=== PATIENT | female | born 1955 | race Caucasian/White ===

== ENCOUNTER 2017-01-18 03:39 | Inpatient (IN) | payer BC ==
[2017-01-18] VITALS (28 sets, daily range): BP systolic 60–136; BP diastolic 39–72; PULSE 86–126; RESP 12–24; TEMP 97.9–100; O2SAT 90–100
[~2017-01-18] VITALS: Ht 165.1 cm; Wt 73.8 kg
[2017-01-18] MEDS ORDERED: SODIUM CHLOR 0.9% 1000 ML INJ 1,000 ML IV SCH ×2 (03:43→05:19)
[2017-01-18] MEDS ORDERED: SODIUM CHLORIDE 0.9% FLUSH 5 ML FLUSH IV FLUSH PRN (03:45)
[2017-01-18] MEDS ORDERED: METF1000 PO (04:02)
[2017-01-18] MEDS ORDERED: DOPamine INJ PREMIX 500 ML ONE (04:02)
[2017-01-18] MEDS ORDERED: ALPR0.5T3 PO ×2 (04:02→04:16)
[2017-01-18] MEDS ORDERED: ONDANSETRON HCL 4 MG/2 ML VIAL ONE (04:03)
[2017-01-18] MEDS ORDERED: ESCI10TA PO ×2 (04:07→04:16)
[2017-01-18] MEDS ORDERED: VALS1TAB63 PO (04:08)
[2017-01-18] MEDS ORDERED: LORA1TAB12 PO ×2 (04:08→04:16)
[2017-01-18] MEDS ORDERED: ESZO1TAB4 PO ×2 (04:09→04:16)
[2017-01-18] MEDS ORDERED: ATEN50TA PO (04:16)
[2017-01-18] MEDS ORDERED: IBUP200T2 PO (04:16)
[2017-01-18] MEDS ORDERED: METF850T PO (04:16)
[2017-01-18] MEDS ORDERED: VALS320T4 PO (04:16)
[2017-01-18] MEDS ORDERED: MIDAZOLAM HCL 5 MG/ML VIAL (1 ML) ONE (04:18)
[2017-01-18 04:21] LABS: AUTOMATED NEUTROPHIL # 10.3 TH/MM3 (1.8-7.7); EOSINOPHIL % 0.2 % (0.0-4.0); HEMATOCRIT 34.3 % (35.0-46.0); LYMPH % 4.6 % (9.0-44.0); LYMPHOCYTE # 0.6 TH/MM3 (1.0-4.8); MEAN CELL VOLUME 101.1 FL (80.0-100.0); MEAN CORPUSCULAR HEMOGLOBIN 33.3 PG (27.0-34.0); MEAN CORPUSCULAR HGB CONC 32.9 % (32.0-36.0); MONO % 10.5 % (0.0-8.0); NEUT % 84.7 % (16.0-70.0); PLATELET COUNT 196 TH/MM3 (150-450); RED BLOOD COUNT 3.39 MIL/MM3 (4.00-5.30); RED CELL DISTRIBUTION WIDTH 14.2 % (11.6-17.2); WHITE BLOOD COUNT 12.1 TH/MM3 (4.0-11.0)
[2017-01-18] MEDS ORDERED: PROPOFOL 1000 MG/100 ML INJ 100 ML ONE (04:22)
[2017-01-18 04:25] LABS: HEMO FLAGS AUTO DIFF
[2017-01-18 04:32] LABS: PROTHROMBIN TIME - PATIENT 11.2 SEC (9.8-11.6)
[2017-01-18] MEDS ORDERED: NOREPINEPHRINE 4 MG/4 ML AMP ONE (04:39)
[2017-01-18 04:42] LABS: BLOOD GAS BASE EXCESS -16.7 mmol/L (-2-2); BLOOD GAS CARBOXYHEMOGLOBIN 0.8 % (0-4); BLOOD GAS HCO3 11 mmol/L (22-26); BLOOD GAS METHEMOGLOBIN 0.8 % (0-2); BLOOD GAS O2 HGB SATURATION 98 % (90-100); BLOOD GAS OXYGEN CONTENT 17.3 Vol % (12.0-20.0); BLOOD GAS PCO2 40 mmHg (38-42); BLOOD GAS PO2 344 mmHG (61-120); TEMP CORR TO 98.6
[2017-01-18 04:43] LABS: CRITICAL VALUE YES; DRAW SITE LT RADIAL; FIO2 100 %; NUMBER OF ARTERIAL PUNCTURES 2; OXYGEN DEVICE VENTILATOR; STAT YES; ULNAR PULSE PRESENT; VENT SETTINGS AC/18/550/PEEP6
[2017-01-18 04:45] LABS: ACETAMINOPHEN LESS THAN 2.0 MCG/ML (10.0-30.0); ALCOHOL LESS THAN 3 MG/DL (0-5); ALKALINE PHOSPHATASE 90 U/L (45-117); ALT (GPT) 27 U/L (10-53); ANION GAP 23 MEQ/L (5-15); AST (GOT) 27 U/L (15-37); BICARBONATE 16.3 MEQ/L (21.0-32.0); BLOOD UREA NITROGEN 92 MG/DL (7-18); CALCIUM-PROTEIN CORRECTED 7.5 MG/DL (8.5-10.1); CHLORIDE 86 MEQ/L (98-107); CREATINE KINASE 441 U/L (26-192); GLOMERULAR FILTRATION RATE 4 ML/MIN (>89); POTASSIUM 4.2 MEQ/L (3.5-5.1); SODIUM (NA) 125 MEQ/L (136-145); TOTAL BILIRUBIN ADULT 0.5 MG/DL (0.2-1.0)
[2017-01-18] MEDS ORDERED: TERBUTALINE INJ 1 MG/ML AMP SQ PRN ×2 (04:45)
[2017-01-18] MEDS ORDERED: VANCOMYCIN INJ 1,000 MG in SODIUM CHLOR 0.9% 250 ML INJ 250 ML IV ONE (04:45)
[2017-01-18] MEDS ORDERED: ETOMIDATE 20 MG/10 ML VIAL IV PUSH ONE (04:45)
[2017-01-18] MEDS ORDERED: SUCCINYLCHOLINE CHLORIDE 100 MG/5 ML SYRINGE IV PUSH ONE (04:45)
[2017-01-18] MEDS ORDERED: PIPERACIL-TAZO 4.5 GM PREMIX 100 ML IV ONE (04:45)
[2017-01-18] MEDS ORDERED: SODIUM BICARBONATE 8.4% INJ 154 MEQ in SODIUM CHLOR 0.9% 1000 ML INJ 846 ML IV SCH (04:54)
--- NOTE | 2017-01-18 04:54 | RADRPT ---
EXAM DATE/TIME: 01/18/2017 04:23 [facility] COMPARISON: No previous studies available for comparison. INDICATIONS : Central line placement. MEDICAL HISTORY : Cardiomyopathy SURGICAL HISTORY : None. ENCOUNTER: Initial ACUITY: 1 day PAIN SCORE: Non-responsive. LOCATION: Bilateral chest FINDINGS: No infiltrate seen. No pleural effusion or pneumothorax. Heart size within normal limits. Endotracheal tube tip is slightly down the right mainstem bronchus. There is a right subclavian centr al venous catheter with tip in the right atrium. Nasogastric tube has its tip in the distal stomach. CONCLUSION: 1. Endotracheal tube extends slightly down the right mainstem bronchus and should be pulled back fela ral centimeters. 2. No infiltrate, effusion or pneumothorax. Loy Barrientos MD on January 18, 2017 at 4:52 Board Certified Radiologist. This report was verified electronically.
[2017-01-18 05:00] LABS: BANDS 17 % (0-6); CORRECTED NUCLEATED RBC 1 /100 WBC (0-0); METAMYELOCYTES 1 % (0-1); NEUTROPHIL # MANUAL DIFF 10.5 TH/MM3 (1.8-7.7); POLYS (SEG NEUTROPHILS) 69 % (16-70); WBC DIFF SAMPLE 100
[2017-01-18 05:01] LABS: OVALOCYTES 1+ (NORMAL); PLATELET ESTIMATE SMEAR NORMAL (NORMAL); PLATELET MORPHOLOGY NORMAL (NORMAL)
[2017-01-18 05:02] LABS: SCAN/DIFF FINAL DIFF MANUAL
[2017-01-18 05:03] LABS: CKMB 50.1 NG/ML (0.5-3.6); DOHLE BODIES PRESENT (NONE SEEN)
[2017-01-18] MEDS: NOREPINEPHRINE-DEXTROSE DRIP 250 ML IV PRN ×3 (05:06→22:49)
[2017-01-18] MEDS: DOPamine INJ PREMIX 500 ML IV PRN ×2 (05:07→18:30)
[2017-01-18] MEDS: PROPOFOL 1000 MG/100 ML INJ 100 ML IV PRN ×2 (05:07→22:49)
[2017-01-18] MEDS ORDERED: SODIUM CHLOR 0.9% 1000 ML INJ 100 ML IV ONE (05:19)
[2017-01-18] MEDS ORDERED: SODIUM CHLOR 0.9% 1000 ML INJ 1,000 ML IV ONE ×4 (05:19→21:45)
--- NOTE | 2017-01-18 05:20 | RADRPT ---
EXAM DATE/TIME: 01/18/2017 05:06 [facility] COMPARISON: No previous studies available for comparison. INDICATIONS : Altered mental status; possible overdose. RADIATION DOSE: 35.72 CTDIvol (mGy) MEDICAL HISTORY : None SURGICAL HISTORY : None. ENCOUNTER: Initial ACUITY: 1 day PAIN SCALE: 0/10 LOCATION: cranial TECHNIQUE: Multiple contiguous axial images were obtained of the head. Using automated exposure control and adj ustment of the mA and/or kV according to patient size, radiation dose was kept as low as reasonably a chievable to obtain optimal diagnostic quality images. DICOM format image data is available electro nically for review and comparison. FINDINGS: CEREBRUM: The ventricles are normal for age. No evidence of midline shift, mass lesion, hemorrhage or acute in farction. No extra-axial fluid collections are seen. POSTERIOR FOSSA: The cerebellum and brainstem are intact. The 4th ventricle is midline. The cerebellopontine angle i s unremarkable. EXTRACRANIAL: 19 mm soft tissue scalp mass noted right posterior parietal vertex, probably a sebaceous cyst but ple ase correlate clinically. SKULL: The calvaria is intact. No evidence of skull fracture. CONCLUSION: No acute intracranial abnormality. Loy Barrientos MD on January 18, 2017 at 5:18 Board Certified Radiologist. This report was verified electronically.
[2017-01-18] MEDS ORDERED: SODIUM CHLORIDE 0.9% FLUSH 10 ML FLUSH PRN (05:30)
[2017-01-18] MEDS ORDERED: LACTULOSE SYRUP 20 GM/30 ML CUP PO PRN (05:30)
[2017-01-18] MEDS ORDERED: SODIUM BICARBONATE 8.4% INJ 150 MEQ in DEXTROSE 5% IN WATE 1000ML INJ 1,000 ML IV SCH ×2 (05:30)
[2017-01-18] MEDS ORDERED: RESP: ALBUTEROL 2.5 MG/IPRATROPIUM 0.5 MG NEB (PRN) INH (05:30)
[2017-01-18] MEDS ORDERED: MISCELLANEOUS NURSING INFORMATION XX SCH (05:30)
[2017-01-18] MEDS ORDERED: MAGNESIUM HYDROXIDE SUSP 30 ML CUP PO PRN (05:30)
[2017-01-18] MEDS ORDERED: LORazepam 2 MG/ML VIAL IV PUSH PRN (05:30)
[2017-01-18] MEDS ORDERED: SENNOSIDES 8.6 MG TAB PO PRN (05:30)
[2017-01-18] MEDS ORDERED: ONDANSETRON HCL 4 MG/2 ML VIAL IV PUSH PRN ×2 (05:30→07:45)
[2017-01-18] MEDS ORDERED: CHLORHEXIDINE GLUCONATE 2 % 1 PACK (2 CLOTHS) TOP PRN (05:30)
[2017-01-18] MEDS ORDERED: BISACODYL 10 MG SUPP RECTAL PRN (05:30)
[2017-01-18] MEDS ORDERED: ACETAMINOPHEN 325 MG TAB PO PRN ×2 (05:30→06:15)
--- NOTE | 2017-01-18 05:38 | HHI.HP ---
HPI Service Critical Care Medicine Primary Care Physician Admission Diagnosis Diagnosis: Travel History International Travel<30 Days: No Contact w/Intl Traveler <30 Da: No Traveled to Known Affected Are: No History of Present Illness 61-year-old female was brought in by EMT for altered mental status. She has a history of diabetes hypertension Xanax overdose in the past, she usually goes to [facility]. She had a Cardiac catheterization done there last year and she was told that she is got cardiomyopathy and she needs the bypass surgery however she didn't follow. Today when she was brought she was too lethargic and was intubated by ED attending for an airway protection. On presentation she is in cardiogenic shock, hypotensive on maximum dose of dopamine and Levophed. She is evaluated by sales project engineer Dr. Day was given a taken emergently to cardiac catheterization. She was also discussed by ED attending with Dr. Rousseau, nephrology who is aware of patient's elevated creatinine and emergent hemodialysis shortly after catheterization. Review of Systems ROS Unobtainable patient is sedated and intubated Past Family Social History Allergies: Coded Allergies: No Known Allergies (Unverified , 01/18/17) Past Medical History Diabetes Hypertension Coronary artery disease Anxiety History of benzodiazepines overdose Past Surgical History Cardiac catheterization Reported Medications Reported Meds & Active Scripts Active Reported Ibuprofen 200 Mg Tab 200 Mg PO Q4H PRN Escitalopram (Escitalopram Oxalate) 10 Mg Tab 10 Mg PO DAILY Atenolol 50 Mg Tab 50 Mg PO DAILY Valsartan-Hydrochlorothiazide 320-12.5 Mg Tab 1 Tab PO DAILY Metformin (Metformin HCl) 850 Mg Tab 1,000 Mg PO DAILY With meals Lorazepam 1 Mg Tab 1 Mg PO Q8H PRN Alprazolam 0.5 Mg Tab 0.5 Mg PO BID PRN Eszopiclone 3 Mg Tab 3 Mg PO HS PRN Eszopiclone 3 Mg Tab 3 Mg PO HS PRN Valsartan 40 Mg Tab 12.5 Mg PO DAILY Lorazepam 1 Mg Tab 1 Mg PO Q4H PRN Escitalopram (Escitalopram Oxalate) 10 Mg Tab 10 Mg PO DAILY Metformin (Metformin HCl) 1,000 Mg Tab 1,000 Mg PO DAILY With a meal Alprazolam 0.5 Mg Tab 0.5 Mg PO Q4H PRN Active Ordered Medications Current Medications Medications (Trade) Dose Ordered Sig/Rashi Route PRN Reason Start Time Stop Time Status Last Admin Dose Admin Dopamine HCl/ Dextrose 500 ml @ 9 mls/hr TITRATE PRN IV Blood Pressure Management 01/18/17 04:45 01/18/17 05:07 Norepinephrine Bitartrate 250 ml @ 7.5 mls/hr TITRATE PRN IV Blood pressure management 01/18/17 04:45 01/18/17 05:06 Terbutaline Sulfate (Brethine Inj) 1 mg UNSCH PRN SQ For Extravasation 01/18/17 04:45 Vancomycin HCl 1000 mg/Sodium Chloride 250 ml @ 250 mls/hr ONCE ONCE IV 01/18/17 04:45 01/18/17 05:44 01/18/17 05:08 Propofol 100 ml @ 2.4 mls/hr TITRATE PRN IV Ordered RASS 01/18/17 04:45 01/18/17 05:07 Sodium Bicarbonate 154 meq/Sodium Chloride 1,000 ml @ 0 mls/hr Q0M IV 01/18/17 04:54 Escitalopram Oxalate (Lexapro) 10 mg DAILY PO 01/18/17 09:00 Sodium Chloride (NS Flush) 2 ml UNSCH PRN .XX FLUSH AFTER USING IV ACCESS 01/18/17 05:30 Sodium Chloride (NS Flush) 2 ml BID .XX 01/18/17 09:00 Acetaminophen (Tylenol) 650 mg Q6H PRN PO PAIN 1-10 AND/OR FEVER >101F 01/18/17 05:30 UNV Famotidine (Pepcid Inj) 20 mg Q12HR IV PUSH 01/18/17 09:00 UNV Lorazepam (Ativan Inj) 1 mg Q1H PRN IV PUSH Agitation/Sedation 01/18/17 05:30 UNV Ondansetron HCl (Zofran Inj) 4 mg Q6H PRN IV PUSH NAUSEA OR VOMITING 01/18/17 05:30 UNV Albuterol/ Ipratropium (Duoneb Neb) 1 ampule Q2HR NEB PRN INH WHEEZING 01/18/17 05:30 Miscellaneous Information 1 Q361D XX 01/18/17 05:30 Chlorhexidine Gluconate (Chlorhexidine 2% Cloth) 3 pack Taper DAILY@04 TOP 01/19/17 04:00 01/15/18 03:59 UNV Chlorhexidine Gluconate (Chlorhexidine 2% Cloth) 3 pack UNSCH PRN TOP HYGIENIC CARE 01/18/17 05:30 UNV Senna/Docusate Sodium (Mali-Colace) 1 tab BID PO 01/18/17 09:00 UNV Magnesium Hydroxide (Milk Of Magnesia Liq) 30 ml Q12H PRN PO MILD - MODERATE CONSTIPATION 01/18/17 05:30 UNV Sennosides (Senokot) 17.2 mg Q12H PRN PO MODERATE - SEVERE CONSTIPATION 01/18/17 05:30 UNV Bisacodyl (Dulcolax Supp) 10 mg DAILY PRN RECTAL SEVERE CONSITIPATION 01/18/17 05:30 UNV Lactulose (Lactulose Liq) 30 ml DAILY PRN PO SEVERE CONSITIPATION 01/18/17 05:30 UNV Midazolam HCl 100 ml @ 2 mls/hr TITRATE PRN IV SEDATION 01/18/17 05:30 UNV Fentanyl Citrate 250 ml @ 5 mls/hr TITRATE PRN IV SEDATION 01/18/17 05:30 UNV Sodium Chloride 1,000 ml @ 1,000 mls/hr Q1H ONCE IV 01/18/17 05:19 01/18/17 06:18 UNV Sodium Chloride 1,000 ml @ 1,000 mls/hr Q1H ONCE IV 01/18/17 05:19 01/18/17 06:18 UNV Sodium Chloride 100 ml @ 1,000 mls/hr Q6M ONCE IV 01/18/17 05:19 01/18/17 05:24 UNV Family History Unobtainable Social History Unobtainable Physical Exam Vital Signs Vital Signs Date Time Temp Pulse Resp B/P (MAP) Pulse Ox O2 Delivery O2 Flow Rate FiO2 01/18/17 05:07 115 87/57 01/18/17 05:06 105 80/57 01/18/17 04:54 105 24 112/51 (71) 100 Ventilator 100 01/18/17 04:36 115 18 91/50 (64) 100 Ventilator 100 01/18/17 04:28 100 01/18/17 04:26 105 86/39 (55) 01/18/17 04:24 108 22 99/50 (66) 97 Ventilator 100 01/18/17 03:59 91 22 60/40 (47) Nasal Cannula 2.00 01/18/17 03:52 90 Nasal Cannula 2.00 01/18/17 03:43 98.7 86 22 105/72 (83) 93 Physical Exam GENERAL: Sedated and intubated obese female. SKIN: Warm and dry. HEAD: Normocephalic. EYES: No scleral icterus. No injection or drainage. NECK: Supple, trachea midline. No JVD or lymphadenopathy. CARDIOVASCULAR: Regular rate and rhythm without murmurs, gallops, or rubs. RESPIRATORY: Breath sounds equal bilaterally. No accessory muscle use. GASTROINTESTINAL: Abdomen soft, non-tender, nondistended. MUSCULOSKELETAL: No cyanosis, or edema. BACK: Nontender without obvious deformity. NEURO EXAM: GCS: M5 Vt E2 Mental Status: The patient is sedated and intubated Cranial Nerves: Pupils are round, reactive to light.. Reflexes: Biceps, patellar, and Achilles are 2/4 bilaterally. No clonus. Laboratory Laboratory Tests Test 01/18/17 03:50 01/18/17 04:10 01/18/17 04:30 White Blood Count 12.1 Red Blood Count 3.39 Hemoglobin 11.3 Hematocrit 34.3 Mean Corpuscular Volume 101.1 Mean Corpuscular Hemoglobin 33.3 Mean Corpuscular Hemoglobin Concent 32.9 Red Cell Distribution Width 14.2 Platelet Count 196 Mean Platelet Volume 8.5 Neutrophils (%) (Auto) 84.7 Lymphocytes (%) (Auto) 4.6 Monocytes (%) (Auto) 10.5 Eosinophils (%) (Auto) 0.2 Basophils (%) (Auto) 0.0 Neutrophils # (Auto) 10.3 Lymphocytes # (Auto) 0.6 Monocytes # (Auto) 1.3 Eosinophils # (Auto) 0.0 Basophils # (Auto) 0.0 CBC Comment AUTO DIFF Differential Total Cells Counted 100 Neutrophils % (Manual) 69 Band Neutrophils % 17 Lymphocytes % 6 Monocytes % 7 Neutrophils # (Manual) 10.5 Metamyelocytes 1 Nucleated Red Blood Cells 1 Differential Comment FINAL DIFF MANUAL Dohle Bodies PRESENT Platelet Estimate NORMAL Platelet Morphology Comment NORMAL Ovalocytes 1+ Prothrombin Time 11.2 Prothromb Time International Ratio 1.0 Blood Urea Nitrogen 92 Creatinine 9.41 Random Glucose 146 Total Protein 6.8 Albumin 3.1 Calcium Level 7.3 Alkaline Phosphatase 90 Aspartate Amino Transf (AST/SGOT) 27 Alanine Aminotransferase (ALT/SGPT) 27 Total Bilirubin 0.5 Sodium Level 125 Potassium Level 4.2 Chloride Level 86 Carbon Dioxide Level 16.3 Anion Gap 23 Estimat Glomerular Filtration Rate 4 Protein Corrected Calcium 7.5 Ammonia LESS THAN 10 Total Creatine Kinase 441 Creatine Kinase MB 50.1 Creatine Kinase MB % 11.4 Troponin I 2.00 Thyroid Stimulating Hormone 3rd Gen 1.190 Salicylates Level LESS THAN 1.7 Acetaminophen Level LESS THAN 2.0 Ethyl Alcohol Level LESS THAN 3 Lactic Acid Level 3.9 Blood Gas Puncture Site LT RADIAL Blood Gas Patient Temperature 98.6 Blood Gas HCO3 11 Blood Gas Base Excess -16.7 Blood Gas Oxygen Saturation 98 Arterial Blood pH 7.08 Arterial Blood Partial Pressure CO2 40 Arterial Blood Partial Pressure O2 344 Arterial Blood Oxygen Content 17.3 Arterial Blood Carboxyhemoglobin 0.8 Arterial Blood Methemoglobin 0.8 Blood Gas Hemoglobin 12.0 Oxygen Delivery Device VENTILATOR Blood Gas Ventilator Setting AC/18/550/PEEP6 Blood Gas Inspired Oxygen 100 Date/Time Source Procedure Growth Status 01/18/17 04:10 Blood Peripheral Aerobic Blood Culture Pending Received 01/18/17 04:10 Blood Peripheral Anaerobic Blood Culture Pending Received Result Diagram: 01/18/17 0350 01/18/17 0350 Caprini VTE Risk Assessment Caprini VTE Risk Assessment: Mod/High Risk (score >= 2) Caprini Risk Assessment Model Point Value = 1 Point Value = 2 Point Value = 3 Point Value = 5 Age 41-60 Minor surgery BMI > 25 kg/m2 Swollen legs Varicose veins or History of unexplained or recurrent spontaneous Oral contraceptives or hormone replacement Sepsis (< 1 month) Serious lung disease, including pneumonia (< 1 month) Abnormal pulmonary function Acute myocardial infarction Congestive heart failure (< 1 month) History of inflammatory bowel disease Medical patient at bed rest Age 61-74 Arthroscopic surgery Major open surgery (> 45 min) Laparoscopic surgery (> 45 min) Malignancy Confined to bed (> 72 hours) Immobilizing plaster cast Central venous access Age >= 75 History of VTE Family history of VTE Factor V Leiden Prothrombin [id number] Lupus anticoagulant Anticardiolipin antibodies Elevated serum homocysteine Heparin-induced thrombocytopenia Other congenital or acquired thrombophilia Stroke (< 1 month) Elective arthroplasty Hip, pelvis, or leg fracture Acute spinal cord injury (< 1 month) Prophylaxis Regimen Total Risk Factor Score Risk Level Prophylaxis Regimen 0-1 Low Early ambulation 2 Moderate Order ONE of the following: *Sequential Compression Device (SCD) *Heparin 5000 units SQ BID 3-4 Higher Order ONE of the following medications: *Heparin 5000 units SQ TID *Enoxaparin/Lovenox 40 mg SQ daily (WT < 150 kg, CrCl > 30 mL/min) *Enoxaparin/Lovenox 30 mg SQ daily (WT < 150 kg, CrCl > 10-29 mL/min) *Enoxaparin/Lovenox 30 mg SQ BID (WT < 150 kg, CrCl > 30 mL/min) AND/OR *Sequential Compression Device (SCD) 5 or more Highest Order ONE of the following medications: *Heparin 5000 units SQ TID (Preferred with Epidurals) *Enoxaparin/Lovenox 40 mg SQ daily (WT < 150 kg, CrCl > 30 mL/min) *Enoxaparin/Lovenox 30 mg SQ daily (WT < 150 kg, CrCl > 10-29 mL/min) *Enoxaparin/Lovenox 30 mg SQ BID (WT < 150 kg, CrCl > 30 mL/min) AND *Sequential Compression Device (SCD) Assessment and Plan Assessment and Plan Respiratory failure - Intubated for an airway protection - No weaning until neurologically and hemodynamically stable - Vent bundle - ABG and CXR daily Cardiogenic shock - Stat cardiac catheterization per Dr. Day - Levophed and dopamine to keep MEP above 65 - Cardiac Catheterization stat Acute coronary syndrome - Per cardiology Dr. Day Severe metabolic acidosis - Acute kidney injury - History of metformin - Sodium bicarbonate drip - IV hydration Acute kidney failure - Dr. Rousseau aware of patient going for cardiac catheterization and will require urgent hemodialysis shortly after - Stat hemodialysis catheter placement - IV hydration - Strict I's and Diabetes mellitus - Hold metformin due to above - Insulin sliding scale DVT GI prophylaxis - Heparin drip - Pepcid Critical Care: The total critical care time was 35 minutes. Time to perform other separately billable procedures was not included in the critical care time. Teodoro Calix MD Jan 18, 2017 05:38
[2017-01-18] MEDS: MIDAZOLAM 100 MG/100 ML INJ 100 ML IV PRN ×2 (05:53→15:47)
[2017-01-18] MEDS: fentaNYL DRIP 250 ML IV PRN (05:54)
[2017-01-18] MEDS ORDERED: MIDAZOLAM HCL 2 MG/2 ML VIAL IV PUSH ONE (06:00)
--- NOTE | 2017-01-18 06:03 | PD.PROCEDR ---
Procedure Note Procedure Hemodialysis catheter placement A time-out was completed verifying correct patient, procedure, site, positioning , and special equipment if applicable. The patient was placed in a dependent position appropriate for central line placement based on the vein to be cannulated. The patients left neck was prepped and draped in sterile fashion. 1 % Lidocaine was used to anesthetize the surrounding skin area. A double lumen hemodialysis catheter was introduced into the the internal jugular vein using the Seldinger technique and under ultrasound guidance. The catheter was threaded smoothly over the guide wire and appropriate blood return was obtained. Each lumen of the catheter was evacuated of air and flushed with sterile saline. The catheter was then sutured in place to the skin and a sterile dressing applied. Perfusion to the extremity distal to the point of catheter insertion was checked and found to be adequate. Estimated Blood Loss: 1ml The patient tolerated the procedure well and there were no complications. Teodoro Calix MD Jan 18, 2017 06:03
[2017-01-18] MEDS ORDERED: HEPARIN-NS/PF INJ 1,000 ML ONE (06:04)
[2017-01-18] MEDS ORDERED: SODIUM CHLOR 0.9% 1000 ML INJ 1,000 ML IV PRN (06:05)
[2017-01-18] MEDS ORDERED: SODIUM CHLOR 0.9% 1000 ML INJ 1,000 ML OTHER PRN ×2 (06:05)
--- NOTE | 2017-01-18 06:09 | PD ---
HPI Chief Complaint: Altered Mental Status Time Seen by Provider: 03:43 Travel History International Travel<30 days: No Contact w/Intl Traveler<30days: No Traveled to known affect area: No History of Present Illness HPI 61-year-old female came to the emergency room brought by EMS for altered mental status and profound hypotension. The history was primarily given by paramedics since patient was in a significant altered mental status and unable to give any meaningful history. Per the paramedics the called 911 because he was having hard time arousing her. When they arrived she was confused and slurred speech. They noticed that her blood pressure was 40 systolic. They started her on a dopamine drip on route and brought her in. By the time patient arrived to GCS was 12 and systolic blood pressure of 110. Patient was very confused but eyes open and slurred speech. There was a big bag of medications that was brought along with her and as per the pot room supervisor some of her 's medications were in there as well. It was noticed that her Xanax bottle that was filled on January 07 was empty. [facility] Past Medical History Narrative Medical List of her past medical, surgical, social and family history was reviewed from the nursing note. Depression: Yes Cardiomyopathy: Yes Diabetes: Yes Patient Takes Glucophage: No Tetanus Vaccination: Unknown Influenza Vaccination: No ?: Not Social History Tobacco Use: Yes Substance Use: No ([facility] ) Allergies-Medications (Allergen,Severity, Reaction): Coded Allergies: No Known Allergies (Unverified , 01/18/17) Comments No known drug allergies. Reported Meds & Prescriptions Reported Meds & Active Scripts Active Reported Ibuprofen 200 Mg Tab 200 Mg PO Q4H PRN Escitalopram (Escitalopram Oxalate) 10 Mg Tab 10 Mg PO DAILY Atenolol 50 Mg Tab 50 Mg PO DAILY Valsartan-Hydrochlorothiazide 320-12.5 Mg Tab 1 Tab PO DAILY Metformin (Metformin HCl) 850 Mg Tab 1,000 Mg PO DAILY With meals Lorazepam 1 Mg Tab 1 Mg PO Q8H PRN Alprazolam 0.5 Mg Tab 0.5 Mg PO BID PRN Eszopiclone 3 Mg Tab 3 Mg PO HS PRN Eszopiclone 3 Mg Tab 3 Mg PO HS PRN Valsartan 40 Mg Tab 12.5 Mg PO DAILY Lorazepam 1 Mg Tab 1 Mg PO Q4H PRN Escitalopram (Escitalopram Oxalate) 10 Mg Tab 10 Mg PO DAILY Metformin (Metformin HCl) 1,000 Mg Tab 1,000 Mg PO DAILY With a meal Alprazolam 0.5 Mg Tab 0.5 Mg PO Q4H PRN Narrative Medication List of her home medications reviewed from the nursing note. Review of Systems Except as stated in HPI: all other systems reviewed are Neg Physical Exam Narrative GENERAL: Delirious, confused, obese, moderate distress SKIN: Focused skin assessment warm/dry. Pale HEAD: Atraumatic. Normocephalic. EYES: Pupils equal and round. No scleral icterus. No injection or drainage. ENT: No nasal bleeding or discharge. Dry lips and mucous membranes NECK: Trachea midline. No JVD. CARDIOVASCULAR: Regular rate and rhythm. No murmur appreciated. RESPIRATORY: No accessory muscle use. Clear to auscultation. Breath sounds equal bilaterally. GASTROINTESTINAL: Abdomen soft, non-tender, nondistended. Hepatic and splenic margins not palpable. MUSCULOSKELETAL: No obvious deformities. No clubbing. No cyanosis. No edema. NEUROLOGICAL: GCS of 12, confused. No obvious cranial nerve deficits. Motor grossly within normal limits. Slurred speech. PSYCHIATRIC: Anxious with poor insight and judgment. Data Data Last Documented VS Orders Orders Electrocardiogram (01/18/17 03:43) Ammonia (01/18/17 03:43) Complete Blood Count With Diff (01/18/17 03:43) Comprehensive Metabolic Panel (01/18/17 03:43) Creatine Kinase (Cpk) (01/18/17 03:43) Prothrombin Time / Inr (Pt) (01/18/17 03:43) Troponin I (01/18/17 03:43) Thyroid Stimulating Hormone (01/18/17 03:43) Lactic Acid Sepsis Protocol (01/18/17 03:43) Blood Culture (01/18/17 03:43) Chest, Single Ap (01/18/17 03:43) Ct Brain W/O Iv Contrast(Rout) (01/18/17 03:43) Blood Glucose (01/18/17 03:43) Ecg Monitoring (01/18/17 03:43) Iv Access Insert/Monitor (01/18/17 03:43) Oximetry (01/18/17 03:43) Sodium Chloride 0.9% Flush (Ns Flush) (01/18/17 03:45) Sodium Chlor 0.9% 1000 Ml Inj (Ns 1000 M (01/18/17 03:43) Alcohol (Ethanol) (01/18/17 03:43) Tylenol (Acetaminophen) (01/18/17 03:43) Salicylates (Aspirin) (01/18/17 03:43) Dopamine Inj Premix (Dopamine Inj Premix (01/18/17 04:02) Ondansetron Inj (Zofran Inj) (01/18/17 04:03) Midazolam Inj (Versed Inj) (01/18/17 04:18) Fentanyl Inj (Fentanyl Inj) (01/18/17 04:19) Propofol 1000 Mg/100 Ml Inj (Diprivan 10 (01/18/17 04:22) Norepinephrine Inj (Levophed Inj) (01/18/17 04:39) Arterial Blood Gas (Abg) (01/18/17 04:30) CKMB (01/18/17 03:50) CKMB% (01/18/17 03:50) Succinylcholine Inj (Quelicin Inj) (01/18/17 04:45) Etomidate Inj (Amidate Inj) (01/18/17 04:45) Dopamine Inj Premix (Dopamine Inj Premix (01/18/17 04:45) Terbutaline Inj (Brethine Inj) (01/18/17 04:45) Norepinephrine-Dextrose Drip (Levophed-D (01/18/17 04:45) Terbutaline Inj (Brethine Inj) (01/18/17 04:45) Piperacil-Tazo 4.5 Gm Premix (Zosyn 4.5 (01/18/17 04:45) Vancomycin Inj (Vancomycin Inj) (01/18/17 04:45) Propofol 1000 Mg/100 Ml Inj (Diprivan 10 (01/18/17 04:45) ^ Infusion (01/18/17 04:45) RASS (01/18/17 04:45) Neurological Rass Scale DESIRE.Q2H (01/18/17 04:45) Notify Radiology (01/18/17 04:54) ^ Saline Lock (01/18/17 04:54) Sodium Chlor 0.9% 1... W/Sodium Bicarbon (01/18/17 04:54) Escitalopram (Lexapro) (01/18/17 09:00) Admit To Inpatient (01/18/17 ) Code Status (01/18/17 05:19) Vital Signs (Adult) DESIRE.Q1H (01/18/17 05:19) Activity Bed Rest (01/18/17 05:19) Elevate Head Of Bed (01/18/17 05:19) Neuro Checks . ORDERED (01/18/17 05:19) Intake + Output Q1H (01/18/17 05:19) Bedside Glucose DESIRE.BGM (01/18/17 05:19) Diet Npo (01/18/17 Breakfast) Sodium Chlor 0.9% 1000 Ml Inj (Ns 1000 M (01/18/17 05:19) Sodium Chloride 0.9% Flush (Ns Flush) (01/18/17 05:30) Sodium Chloride 0.9% Flush (Ns Flush) (01/18/17 09:00) Acetaminophen (Tylenol) (01/18/17 05:30) Famotidine Inj (Pepcid Inj) (01/18/17 09:00) Lorazepam Inj (Ativan Inj) (01/18/17 05:30) Ondansetron Inj (Zofran Inj) (01/18/17 05:30) Albuterol-Ipratropium Neb (Duoneb Neb) (01/18/17 05:30) Complete Blood Count With Diff (01/19/17 04:00) Comprehensive Metabolic Panel (01/19/17 04:00) Troponin I (01/18/17 11:19) Prothrombin Time / Inr (Pt) (01/19/17 04:00) Magnesium (Mg) (01/19/17 04:00) Phosphorus (Po4) (01/19/17 04:00) Electrocardiogram (01/18/17 05:19) Pt Request For Service (01/18/17 05:19) Service Car Driver / Telemetry DESIRE.Q8H (01/18/17 05:19) Scd Bilateral/Knee High DESIRE.BID (01/18/17 05:19) Won Bilateral/Knee High DESIRE.QSHIFT (01/18/17 05:19) ^ Initiate Protocol (01/18/17 05:19) Instruction (01/18/17 05:19) [facility] Nursing Information (01/18/17 05:30) Chlorhexidine 2% Cloth (Chlorhexidine 2% (01/19/17 04:00) Chlorhexidine 2% Cloth (Chlorhexidine 2% (01/18/17 05:30) Mrsa Pcr Surveillance (01/18/17 05:19) Docusate Sodium-Senna (Mali-Colace) (01/18/17 09:00) Magnesium Hydroxide Liq (Milk Of Magnesi (01/18/17 05:30) Sennosides (Senokot) (01/18/17 05:30) Bisacodyl Supp (Dulcolax Supp) (01/18/17 05:30) Lactulose Liq (Lactulose Liq) (01/18/17 05:30) Midazolam 100 Mg/100 Ml Inj (Versed Inj) (01/18/17 05:30) Neurological Rass Scale Q30MX2,Q2HX4,Q4H (01/18/17 05:19) Neurological Rass Scale Q30MX2,Q2HX4,Q4H (01/18/17 05:19) Fentanyl Drip (Fentanyl Drip) (01/18/17 05:30) Vital Signs (Adult) CONTINUOUS (01/18/17 05:19) Neuro Checks . ORDERED (01/18/17 05:19) Service Car Driver / Telemetry DESIRE.Q8H (01/18/17 05:19) Intake + Output 06,14,22 (01/18/17 05:19) Ot Request For Service (01/18/17 05:19) Sodium Chlor 0.9% 1000 Ml Inj (Ns 1000 M (01/18/17 05:19) Sodium Chlor 0.9% 1000 Ml Inj (Ns 1000 M (01/18/17 05:19) Sodium Chlor 0.9% 1000 Ml Inj (Ns 1000 M (01/18/17 05:19) Inpatient Certification (01/18/17 ) Dextrose 5% In [place]ate... W/Sodium Bicarbon (01/18/17 05:30) Admit Order (Ed Use Only) (01/18/17 05:36) Labs Laboratory Tests Test 01/18/17 03:50 01/18/17 04:10 01/18/17 04:30 White Blood Count 12.1 TH/MM3 Red Blood Count 3.39 MIL/MM3 Hemoglobin 11.3 GM/DL Hematocrit 34.3 % Mean Corpuscular Volume 101.1 FL Mean Corpuscular Hemoglobin 33.3 PG Mean Corpuscular Hemoglobin Concent 32.9 % Red Cell Distribution Width 14.2 % Platelet Count 196 TH/MM3 Mean Platelet Volume 8.5 FL Neutrophils (%) (Auto) 84.7 % Lymphocytes (%) (Auto) 4.6 % Monocytes (%) (Auto) 10.5 % Eosinophils (%) (Auto) 0.2 % Basophils (%) (Auto) 0.0 % Neutrophils # (Auto) 10.3 TH/MM3 Lymphocytes # (Auto) 0.6 TH/MM3 Monocytes # (Auto) 1.3 TH/MM3 Eosinophils # (Auto) 0.0 TH/MM3 Basophils # (Auto) 0.0 TH/MM3 CBC Comment AUTO DIFF Differential Total Cells Counted 100 Neutrophils % (Manual) 69 % Band Neutrophils % 17 % Lymphocytes % 6 % Monocytes % 7 % Neutrophils # (Manual) 10.5 TH/MM3 Metamyelocytes 1 % Nucleated Red Blood Cells 1 /100 WBC Differential Comment FINAL DIFF MANUAL Dohle Bodies PRESENT Platelet Estimate NORMAL Platelet Morphology Comment NORMAL Ovalocytes 1+ Prothrombin Time 11.2 SEC Prothromb Time International Ratio 1.0 RATIO Blood Urea Nitrogen 92 MG/DL Creatinine 9.41 MG/DL Random Glucose 146 MG/DL Total Protein 6.8 GM/DL Albumin 3.1 GM/DL Calcium Level 7.3 MG/DL Alkaline Phosphatase 90 U/L Aspartate Amino Transf (AST/SGOT) 27 U/L Alanine Aminotransferase (ALT/SGPT) 27 U/L Total Bilirubin 0.5 MG/DL Sodium Level 125 MEQ/L Potassium Level 4.2 MEQ/L Chloride Level 86 MEQ/L Carbon Dioxide Level 16.3 MEQ/L Anion Gap 23 MEQ/L Estimat Glomerular Filtration Rate 4 ML/MIN Protein Corrected Calcium 7.5 MG/DL Ammonia LESS THAN 10 MCMOL/L Total Creatine Kinase 441 U/L Creatine Kinase MB 50.1 NG/ML Creatine Kinase MB % 11.4 % Troponin I 2.00 NG/ML Thyroid Stimulating Hormone 3rd Gen 1.190 uIU/ML Salicylates Level LESS THAN 1.7 MG/DL Acetaminophen Level LESS THAN 2.0 MCG/ML Ethyl Alcohol Level LESS THAN 3 MG/DL Lactic Acid Level 3.9 mmol/L Blood Gas Puncture Site LT RADIAL Blood Gas Patient Temperature 98.6 Blood Gas HCO3 11 mmol/L Blood Gas Base Excess -16.7 mmol/L Blood Gas Oxygen Saturation 98 % Arterial Blood pH 7.08 Arterial Blood Partial Pressure CO2 40 mmHg Arterial Blood Partial Pressure O2 344 mmHG Arterial Blood Oxygen Content 17.3 Vol % Arterial Blood Carboxyhemoglobin 0.8 % Arterial Blood Methemoglobin 0.8 % Blood Gas Hemoglobin 12.0 G/DL Oxygen Delivery Device VENTILATOR Blood Gas Ventilator Setting AC/18/550/PEEP6 Blood Gas Inspired Oxygen 100 % [facility] Medical Decision Making Medical Screen Exam Complete: Yes Emergency Medical Condition: Yes Medical Record Reviewed: Yes Interpretation(s) Twelve-lead EKG was reviewed by me. Normal sinus rhythm, left axis deviation, significant ST depression in the lateral leads and inferior leads and ST elevation in aVR. No old EKGs to compare with. Heart rate of 83 bpm. Differential Diagnosis Myocardial ischemia, cardiogenic shock, metabolic acidosis, metabolic encephalopathy, medication overdose Narrative Course 5:58 AM based on the 12-lead EKG I immediately contacted the clasp machine operator Dr. Ren and sent him the EKG electronically. Based on the EKG he called Dr. Day who is on STEMI team. I discussed the case with Dr. Day and he decided to come in to see the patient. Meanwhile, 10 minutes after patient was hooked up to the monitor upon arrival she started getting very combative. She was impossible to reason with. At this point I decided to intubate her since I wanted a CAT scan of her head and a central line to be placed given her hypotension. Intubation was done by me. Please refer to the procedure note. Patient tolerated the procedure well. After intubation the ET tube was suctioned and a significant quantity of bright red blood with the thick mucous plug came out. Central line was put in by me. Please refer to the procedure note. Patient tolerated the procedure well as well. Blood test results started to come back at this point and it was noticed that her chemistry was grossly abnormal along with elevated troponin and CK-MB percentage. Patient was in acute renal failure with metabolic acidosis. The metabolic acidosis was also evident by the ABG that was done postintubation. A chest x-ray was done to confirm the ET tube and a central line placement. The radiology read the ET tube to be entering main stem and the tube was pulled up by 3 cm at this point. Awaiting for the repeat chest x-ray to confirm the position. Patient also went to the CT scanner for head CT which was negative for any acute issues. I discussed the case with the bird keeper on-call Dr. Arteaga and urged him to order emergent dialysis since by this point Dr. Day was here and he decided to take the patient to the catheter lab. Given the dye load and the poor renal function patient would require the dialysis. Patient's was called in and I discussed with him her condition. He seems to be in fragile health himself. He was having hard time giving me the exact events of patient's recent past but did tell me that she has overdosed twice in the past on various medications. She also has history of EtOH intoxication. He said that patient has no history of renal failure. She had a cardiac catheter done at [facility] in [facility] last year and was told that she has cardiomyopathy and would require bypass surgery. Dr. Day discussed with the about patient' s past history as well. Meanwhile, I discussed the case with the jet mechanic Dr. Calix who came down soon after being paged. He currently just finished putting a Vas-Cath into the left IJ. Awaiting for a chest x-ray to confirm the IJ placement as well. Patient will be going to the Organ Recovery Coordinator soon. After that she would require emergent dialysis which has been conveyed to Dr. Arteaga by me. I have started her on bicarbonate drip. Patient has dopamine as well as norepinephrine running through the central line as pressors to keep the blood pressure high. Her current blood pressure is 132/61. Needless to say that this patient is in a critical condition. Critical Care Narrative Aggregate critical care time was 120 minutes. Time to perform other separately billable procedures was not included in the critical care time. My time did not include minutes spent treating any other patients simultaneously or on activities that did not directly contribute to the patient's treatment. The services I provided to this patient were to treat and/or prevent clinically significant deterioration that could result in: Altered mental status, respiratory failure, ventilator management, acute renal failure, metabolic acidosis, bicarbonate drip, hypotension, pressors, elevated troponin, going to Organ Recovery Coordinator I provided critical care services requiring my management, as noted below: Chart data review, documentation time, medication orders and management, vital sign assessments/reviewing monitor data, ordering and reviewing lab tests, ordering and interpreting/reviewing x-rays and diagnostic studies, care of the patient and discussion of the patient with the admitting physicians. Procedures Procedure Narrative After the risks and benefits were discussed the following procedure was performed: INTUBATION: The patient was put in optimal position for the procedure. Rapid sequence intubation was initiated by me using 20 milligrams of etomidate IV and 100 milligrams of succinylcholine IV. The patient was intubated with a 7.5 cuffed endotracheal tube. Tube placement was confirmed by visualization of the tube and balloon passing through the cords, capnometry and subsequent chest x-ray. Breath sounds were equal and well aerated bilaterally postintubation. No breath sounds over stomach. Patient tolerated procedure well. CENTRAL VENOUS LINE: The site was prepped with Betadine and sterilely draped. It was infiltrated with 1% lidocaine plain. The deep vein was cannulated using normal Seldinger technique. A triple lumen central line was placed in the right subclavian site and secured with simple interrupted suture. The site was sterilely dressed. The patient tolerated the procedure well. EKG Prior to Arrival: No Physician Communication Physician Communication Dr. Day, Dr. Arteaga, Dr. Calix Diagnosis Primary Impression: Altered mental status Qualified Codes: R41.0 - Disorientation, unspecified Additional Impressions: Respiratory failure Qualified Codes: J96.00 - Acute respiratory failure, unspecified whether with hypoxia or hypercapnia Metabolic acidosis Acute renal failure Qualified Codes: N17.9 - Acute kidney failure, unspecified Lactic acidosis Cardiogenic shock Myocardial ischemia Bandemia Admitting Information Admitting Physician Requests: Alysa Thibodeaux MD Jan 18, 2017 06:09
[2017-01-18] MEDS ORDERED: ONDANSETRON HCL 4 MG/2 ML VIAL IV PRN (06:15)
[2017-01-18] MEDS ORDERED: cloNIDine HCL 0.1 MG TAB PO PRN (06:15)
[2017-01-18] MEDS ORDERED: MANNITOL 12.5 GM/50 ML VIAL IV PRN (06:15)
[2017-01-18] MEDS ORDERED: HEPARIN SODIUM - IV 10,000 UNITS/10 ML VIAL PRN (06:15)
[2017-01-18] MEDS ORDERED: NITROGLYCERIN 0.4 MG SL 25 TABS/BTL SL PRN (06:15)
[2017-01-18] MEDS ORDERED: HEPARIN SODIUM - IV 10,000 UNITS/10 ML VIAL IV ONE (06:15)
[2017-01-18] MEDS ORDERED: SODIUM CHLORIDE 0.9% FLUSH 10 ML FLUSH IV FLUSH PRN (06:15)
[2017-01-18] MEDS ORDERED: GELATIN 12 MM/7 MM FOAM TOP PRN (06:15)
[2017-01-18] MEDS ORDERED: ALBUMIN HUMAN 25% 25 GM/100 ML BAGP IV PRN (06:15)
[2017-01-18] MEDS ORDERED: diphenhydrAMINE HCL 25 MG CAP PO PRN (06:15)
[2017-01-18] MEDS ORDERED: HEPARIN SODIUM - IV 10,000 UNITS/10 ML VIAL IVF PRN (06:15)
[2017-01-18] MEDS ORDERED: IOHEXOL 350 MG/ML 100 ML BTL (for Cath Lab) OTHER ONE (06:17)
--- NOTE | 2017-01-18 06:23 | RADRPT ---
EXAM DATE/TIME: 01/18/2017 06:11 [place] COMPARISON: CHEST SINGLE AP, January 18, 2017, 4:23. INDICATIONS : Vascath placement. Altered mental status; possible overdose MEDICAL HISTORY : None. SURGICAL HISTORY : None. ENCOUNTER: Initial ACUITY: 1 day PAIN SCORE: Non-responsive. LOCATION: Bilateral chest FINDINGS: Trace bibasilar atelectasis has developed. No pleural effusion seen. No pneumothorax. Heart size stable, within normal limits. Thoracic aorta is tortuous. Endotracheal tube has been pulled back, tip now approximately 3.5 cm above the reyna. There is a demetria ogastric tube coursing into the stomach. New left internal jugular cordis has been placed with tip in the superior vena cava. A right subclavian central venous catheter is unchanged, tip in the right at rium. CONCLUSION: 1. Mild bibasilar atelectasis developing. 2. New large caliber left internal jugular central venous catheter with tip in the superior vena cava . No pneumothorax. 3. Endotracheal tube tip now appropriately positioned about 3.5 cm above the reyna. 4. Unchanged right subclavian central venous catheter and nasogastric tube. Loy Barrientos MD on January 18, 2017 at 6:20 Board Certified Radiologist. This report was verified electronically.
[2017-01-18 06:41] LABS: LACTIC ACID GHOST NOT REPORTABLE
[2017-01-18] MEDS ORDERED: ATROPINE SULFATE 1 MG/ML VIAL IV PUSH PRN (07:45)
[2017-01-18] MEDS: MILRINONE INJ 20 MG in SODIUM CHLORIDE 0.9% INJ 80 ML IV SCH ×2 (07:48→15:48)
[2017-01-18] MEDS ORDERED: ROCURONIUM INJ 50 MG/5 ML VIAL ONE (08:51)
[2017-01-18] MEDS ORDERED: ROCURONIUM INJ 50 MG/5 ML SYRINGE IV ONE (09:00)
[2017-01-18] MEDS: SODIUM CHLORIDE 0.9% FLUSH 10 ML FLUSH SCH ×2 (09:00→19:46)
[2017-01-18] MEDS ORDERED: ESCITALOPRAM OXALATE 10 MG TAB PO SCH (09:00)
--- NOTE | 2017-01-18 09:06 | MB ---
cc: EMILIA JIMENEZ DATE OF : 1955 DATE OF CONSULTATION: 01/18/2017 REASON FOR CONSULTATION Hypotension, ST-elevation HISTORY OF PRESENT ILLNESS 61-year-old female with past medical history significant for diabetes, hypertension, coronary artery disease, anxiety, that was brought into the emergency department by EMT for altered mental status. In the emergency department she was found to be severely hypotensive. She was started on pressors and she was intubated for airway protection in the setting of mental status changes. EKG showed sinus rhythm with an ST elevation and AVR, and depressions in the anterolateral leads for which cardiology was consulted for management and evaluation. Further blood work revealed acute kidney injury with a creatinine of 9.4, and hyponatremia. The past medical history per the , she had a left heart catheterization around a year ago in [place] and she was found to have an ischemic cardiomyopathy. CABG was recommended, however, she got a second opinion in [place] where the traveling plant operator consulted did not recommend open heart surgery at the time and she was started on medical management. REVIEW OF SYSTEMS Unobtainable. The patient is intubated. ALLERGIES NO KNOWN DRUG ALLERGIES. PAST MEDICAL HISTORY 1. Diabetes. 2. Hypertension. 3. Coronary artery disease. 4. Anxiety. 5. History of diazepam overdose. MEDICATIONS: 1. Ibuprofen 200 milligrams p.o. q4 p.r.n. 2. Escitalopram 10 milligrams p.o. daily 3. Atenolol 50 milligrams p.o. daily 4. Valsartan/hydrochlorothiazide 320/12.5 one tab p.o. daily 5. Metformin 850 milligrams p.o. b.i.d. 6. Lorazepam 1 milligram p.o. q8 hours p.r.n. 7. Alprazolam 0.5 milligrams p.o. b.i.d. p.r.n. 8. Eszopiclone 3 milligrams p.o. q hs p.r.n. 9. Valsartan 40 milligrams p.o. daily. FAMILY HISTORY Unobtainable SOCIAL HISTORY Unobtainable PHYSICAL EXAMINATION VITAL SIGNS: Temperature 98.7, respiratory rate 24. Heart rate 126, blood pressure 136/53 on Levophed and dopamine. O2 sat 100% on mechanical ventilation. GENERAL: She is sedated, intubated, however responsive to external stimuli. Neck: No JVD or carotid bruits. Heart: Tachycardiac. No murmurs, rubs, or gallops. Lungs: Equal bilateral breath sounds. No wheezes, no rhonchi. Abdomen: Obese, soft, non-tender, non-distended. Positive bowel sounds. Extremities: Cold, diminished pulses throughout. LABORATORY DATA: WBC 12.1, hemoglobin 11, hematocrit 34, platelet count 196, INR 1.0. Chemistries: sodium 125, potassium 4.2, chloride 86, bicarb 16, BUN 92, creatinine 9.41, glucose 146, calcium 7.3. Ammonia less than 10. Troponin 2. TSH 1.1, Toxicology studies: Salicylates less than 1.7, acetaminophen less than 2. Ethyl alcohol less than 3. Microbiology: Blood cultures taken, pending results. IMAGING STUDIES Chest x-ray: No acute cardiopulmonary process. Head CT: No acute intracranial abnormality. EKG: Sinus rhythm with ST elevation in AVR, suggestive of myocardial injury pattern as well as depression in the anterior lateral leads. ASSESSMENT/PLAN 61-year-old female presents to the hospital with acute change in mental status and hypotension. Unclear the reason why she is hypotensive. she might have overdose with Xanax. On arrival to the emergency department, she was not complaining of chest pain. The main concern was hypoxia and shortness of breath. She does have a prior history of coronary artery disease and cardiomyopathy that can be affected by the underlying insults. Given the patient's significant hypotension, elevated troponin and EKG changes, I think it would be reasonable to take her to the Cardiac Catheterization Laboratory to assess coronary anatomy as well as possible right heart catheterization. The risks and benefits of emergent left heart catheterization, possible intervention including but not limited to neurovascular trauma, infection, bleeding, acute kidney injury, neurovascular trauma and stroke, emergent bypass surgery has been explained to the . He understands the risks and is willing to proceed. The patient has already been consulted for nephrology for emergent dialysis. If left heart catheterization is unremarkable, pulmonary embolism is also in the differential , thus will consider CT of the chest. The case has been discussed with the civil engineering technician, Dr. Young. PLAN -Emergent left heart catheterization. -Continue supportive care Thank you for the opportunity to take part in the care of this patient. Further management to be determined. MD EPIFANIO Alvarez/JULIANO /7:27 AM /8:43 AM JOSE ALFREDO
--- NOTE | 2017-01-18 09:11 | PD.CONS ---
HPI Service Nephrology Consult Requested By Dr. [place] Reason for Consult Acute renal failure Primary Care Physician Beto Jernigan M.D. History of Present Illness Patient is a 61-year-old female with history of cardiomyopathy going to the chart she has coronary artery disease however she presented to with unusual symptoms of acute renal failure, hypotension, agitation, requiring intubation, possible overdose on Xanax and came here with the hypotension blood pressure drop and 40s, initial evaluation showed EKG changes ST wave depression her troponin was high creatinine was 9.4, cardiology was consulted and they took for heart catheterization, it did not reveal any coronary artery disease but her PA pressures were high, she had a [place] placed by Dr. Alvarado. Review of Systems ROS Limitations: Clinical Condition Past Family Social History Allergies: Coded Allergies: No Known Allergies (Unverified , 01/18/17) Past Medical History Cardiomyopathy Diabetes Hypertension Depression Anxiety Past Surgical History Unknown Reported Medications Reported Meds & Active Scripts Active Reported Ibuprofen 200 Mg Tab 200 Mg PO Q4H PRN Escitalopram (Escitalopram Oxalate) 10 Mg Tab 10 Mg PO DAILY Atenolol 50 Mg Tab 50 Mg PO DAILY Valsartan-Hydrochlorothiazide 320-12.5 Mg Tab 1 Tab PO DAILY Metformin (Metformin HCl) 850 Mg Tab 1,000 Mg PO DAILY With meals Lorazepam 1 Mg Tab 1 Mg PO Q8H PRN Alprazolam 0.5 Mg Tab 0.5 Mg PO BID PRN Eszopiclone 3 Mg Tab 3 Mg PO HS PRN Eszopiclone 3 Mg Tab 3 Mg PO HS PRN Valsartan 40 Mg Tab 12.5 Mg PO DAILY Lorazepam 1 Mg Tab 1 Mg PO Q4H PRN Escitalopram (Escitalopram Oxalate) 10 Mg Tab 10 Mg PO DAILY Metformin (Metformin HCl) 1,000 Mg Tab 1,000 Mg PO DAILY With a meal Alprazolam 0.5 Mg Tab 0.5 Mg PO Q4H PRN Active Ordered Medications Current Medications Medications (Trade) Dose Ordered Sig/Rashi Route Start Time Stop Time Status Last Admin Dopamine HCl/ Dextrose 500 ml @ 9 mls/hr TITRATE PRN IV 01/18/17 04:45 01/18/17 05:07 Norepinephrine Bitartrate 250 ml @ 7.5 mls/hr TITRATE PRN IV 01/18/17 04:45 01/18/17 05:06 (Brethine Inj) 1 mg UNSCH PRN SQ 01/18/17 04:45 Propofol 100 ml @ 2.4 mls/hr TITRATE PRN IV 01/18/17 04:45 01/18/17 05:07 (Lexapro) 10 mg DAILY PO 01/18/17 09:00 (NS Flush) 2 ml UNSCH PRN .XX 01/18/17 05:30 (NS Flush) 2 ml BID .XX 01/18/17 09:00 (Tylenol) 650 mg Q6H PRN PO 01/18/17 05:30 (Pepcid Inj) 10 mg Q12HR IV PUSH 01/18/17 09:00 (Zofran Inj) 4 mg Q6H PRN IV PUSH 01/18/17 05:30 (Duoneb Neb) 1 ampule Q2HR NEB PRN INH 01/18/17 05:30 Miscellaneous Information 1 Q361D XX 01/18/17 05:30 (Chlorhexidine 2% Cloth) 3 pack Taper DAILY@04 TOP 01/19/17 04:00 01/15/18 03:59 (Chlorhexidine 2% Cloth) 3 pack UNSCH PRN TOP 01/18/17 05:30 (Mali-Colace) 1 tab BID PO 01/18/17 09:00 (Milk Of Magnesia Liq) 30 ml Q12H PRN PO 01/18/17 05:30 (Senokot) 17.2 mg Q12H PRN PO 01/18/17 05:30 (Dulcolax Supp) 10 mg DAILY PRN RECTAL 01/18/17 05:30 (Lactulose Liq) 30 ml DAILY PRN PO 01/18/17 05:30 Midazolam HCl 100 ml @ 2 mls/hr TITRATE PRN IV 01/18/17 05:30 01/18/17 05:53 Fentanyl Citrate 250 ml @ 5 mls/hr TITRATE PRN IV 01/18/17 05:30 01/18/17 05:54 Sodium Bicarbonate 150 meq/Dextrose 1,150 ml @ 75 mls/hr [id number] IV 01/18/17 05:30 Sodium Chloride 1,000 ml @ 0 mls/hr Q0M PRN OTHER 01/18/17 06:05 (Heparin Inj) 8,000 units UNSCH PRN IVF 01/18/17 06:15 Sodium Chloride 1,000 ml @ 200 mls/hr Q5H PRN IV 01/18/17 06:05 Sodium Chloride 1,000 ml @ 0 mls/hr Q0M PRN OTHER 01/18/17 06:05 (Mannitol Inj) 12.5 gm UNSCH PRN IV 01/18/17 06:15 (Albumin 25% Inj) 25 gm UNSCH PRN IV 01/18/17 06:15 (NS Flush) 5 ml UNSCH PRN IV FLUSH 01/18/17 06:15 (Heparin Inj) UNSCH PRN .XX 01/18/17 06:15 (Gentamicin (Dialysis) Inj) 20 mg UNSCH PRN IV 01/18/17 06:15 (Zofran Inj) 4 mg UNSCH PRN IV 01/18/17 06:15 (Tylenol) 650 mg UNSCH PRN PO 01/18/17 06:15 (Benadryl) 25 mg UNSCH PRN PO 01/18/17 06:15 (Nitrostat Sl) 0.4 mg UNSCH PRN SL 01/18/17 06:15 (Gelfoam 12 Mm/7 Mm Top) 1 foam UNSCH PRN TOP 01/18/17 06:15 (Atropine Inj) 0.5 mg UNSCH PRN IV PUSH 01/18/17 07:45 (Zofran Inj) 4 mg Q4H PRN IV PUSH 01/18/17 07:45 Milrinone Lactate 20 mg/Sodium Chloride 100 ml @ 12 mls/hr Q8H20M IV 01/18/17 07:48 Family History Noncontributory Social History Unknown Physical Exam Vital Signs Vital Signs Date Time Temp Pulse Resp B/P (MAP) Pulse Ox O2 Delivery O2 Flow Rate FiO2 01/18/17 08:42 93 55 01/18/17 07:44 96 60 01/18/17 06:38 01/18/17 06:15 100 100 01/18/17 05:47 126 24 97/54 (68) 100 Ventilator 100 01/18/17 05:38 100 01/18/17 05:35 100 100 01/18/17 05:30 122 24 136/53 (80) 100 Ventilator 100 01/18/17 05:15 100 100 01/18/17 05:07 115 87/57 01/18/17 05:06 105 80/57 01/18/17 05:00 100 100 01/18/17 04:54 105 24 112/51 (71) 100 Ventilator 100 01/18/17 04:36 115 18 91/50 (64) 100 Ventilator 100 01/18/17 04:28 100 01/18/17 04:26 105 86/39 (55) 01/18/17 04:24 108 22 99/50 (66) 97 Ventilator 100 01/18/17 04:15 100 100 01/18/17 03:59 91 22 60/40 (47) Nasal Cannula 2.00 01/18/17 03:52 90 Nasal Cannula 2.00 01/18/17 03:45 105 26 92 Nasal Cannula 2.00 01/18/17 03:43 98.7 86 22 105/72 (83) 93 Physical Exam GENERAL: Well-nourished, well-developed patient. Patient is intubated SKIN: Warm and dry. HEAD: Normocephalic. EYES: No scleral icterus. No injection or drainage. NECK: Supple, trachea midline. No JVD or lymphadenopathy. CARDIOVASCULAR: S1-S2 tachycardia RESPIRATORY: Breath sounds equal bilaterally. No accessory muscle use. GASTROINTESTINAL: Abdomen soft, non-tender, nondistended. EXTREMITIES: No cyanosis, or edema. NEUROLOGICAL: Obtunded Laboratory Laboratory Tests Test 01/18/17 03:50 01/18/17 04:10 01/18/17 04:30 White Blood Count 12.1 Red Blood Count 3.39 Hemoglobin 11.3 Hematocrit 34.3 Mean Corpuscular Volume 101.1 Mean Corpuscular Hemoglobin 33.3 Mean Corpuscular Hemoglobin Concent 32.9 Red Cell Distribution Width 14.2 Platelet Count 196 Mean Platelet Volume 8.5 Neutrophils (%) (Auto) 84.7 Lymphocytes (%) (Auto) 4.6 Monocytes (%) (Auto) 10.5 Eosinophils (%) (Auto) 0.2 Basophils (%) (Auto) 0.0 Neutrophils # (Auto) 10.3 Lymphocytes # (Auto) 0.6 Monocytes # (Auto) 1.3 Eosinophils # (Auto) 0.0 Basophils # (Auto) 0.0 CBC Comment AUTO DIFF Differential Total Cells Counted 100 Neutrophils % (Manual) 69 Band Neutrophils % 17 Lymphocytes % 6 Monocytes % 7 Neutrophils # (Manual) 10.5 Metamyelocytes 1 Nucleated Red Blood Cells 1 Differential Comment FINAL DIFF MANUAL Dohle Bodies PRESENT Platelet Estimate NORMAL Platelet Morphology Comment NORMAL Ovalocytes 1+ Prothrombin Time 11.2 Prothromb Time International Ratio 1.0 Blood Urea Nitrogen 92 Creatinine 9.41 Random Glucose 146 Total Protein 6.8 Albumin 3.1 Calcium Level 7.3 Alkaline Phosphatase 90 Aspartate Amino Transf (AST/SGOT) 27 Alanine Aminotransferase (ALT/SGPT) 27 Total Bilirubin 0.5 Sodium Level 125 Potassium Level 4.2 Chloride Level 86 Carbon Dioxide Level 16.3 Anion Gap 23 Estimat Glomerular Filtration Rate 4 Protein Corrected Calcium 7.5 Ammonia LESS THAN 10 Total Creatine Kinase 441 Creatine Kinase MB 50.1 Creatine Kinase MB % 11.4 Troponin I 2.00 Thyroid Stimulating Hormone 3rd Gen 1.190 Salicylates Level LESS THAN 1.7 Acetaminophen Level LESS THAN 2.0 Ethyl Alcohol Level LESS THAN 3 Lactic Acid Level 3.9 Blood Gas Puncture Site LT RADIAL Blood Gas Patient Temperature 98.6 Blood Gas HCO3 11 Blood Gas Base Excess -16.7 Blood Gas Oxygen Saturation 98 Arterial Blood pH 7.08 Arterial Blood Partial Pressure CO2 40 Arterial Blood Partial Pressure O2 344 Arterial Blood Oxygen Content 17.3 Arterial Blood Carboxyhemoglobin 0.8 Arterial Blood Methemoglobin 0.8 Blood Gas Hemoglobin 12.0 Oxygen Delivery Device VENTILATOR Blood Gas Ventilator Setting AC/18/550/PEEP6 Blood Gas Inspired Oxygen 100 Date/Time Source Procedure Growth Status 01/18/17 04:10 Blood Peripheral Aerobic Blood Culture Pending Received 01/18/17 04:10 Blood Peripheral Anaerobic Blood Culture Pending Received Result Diagram: 01/18/17 [id number] Imaging Last Impressions Head CT 01/18/17342 Signed Impressions: Service Date/Time: Wednesday, January 18, 2017 05:06 - CONCLUSION: No acute intracranial abnormality. Loy Barrientos MD Chest X-Ray 01/18/17342 Signed Impressions: Service Date/Time: Wednesday, January 18, 2017 04:23 - CONCLUSION: 1. Endotracheal tube extends slightly down the right mainstem bronchus and should be pulled back several centimeters. 2. No infiltrate, effusion or pneumothorax. Loy Barrientos MD Assessment and Plan Problem List: (1) Acute renal failure ICD Codes: N17.9 - Acute kidney failure, unspecified Status: Acute Plan: Patient appears to have overdosed on medications and I will get a drug screen, according to he saw her double dose on her prescription medications She was severely hypotension causing multisystem shock She also has history of cardiomyopathy her PA pressures are high A Vas-Cath has been placed and hemodialysis will be started tried to get fluid off Discussed with Dr. Alvarado she will get US Kidney and Urine Na/Cr , also ordered a drug screen. (2) Lactic acidosis ICD Codes: E87.2 - Acidosis Status: Acute Plan: He started on dialysis I will DC bicarbonate Possible sepsis the patient is given Zosyn and vancomycin (3) Cardiogenic shock ICD Codes: R57.0 - Cardiogenic shock Status: Acute Plan: Post heart catheterization which did not showed critical blockage (4) Respiratory failure ICD Codes: J96.90 - Respiratory failure, unspecified, unspecified whether with hypoxia or hypercapnia Status: Acute Plan: Intubated Problem Qualifiers (1) Acute renal failure: Qualified Codes: N17.9 - Acute kidney failure, unspecified (2) Respiratory failure: Qualified Codes: J96.00 - Acute respiratory failure, unspecified whether with hypoxia or hypercapnia Aime Rousseau MD Jan 18, 2017 09:11
--- NOTE | 2017-01-18 09:16 | MA ---
cc: [facility] DATE 01/18/2017 PROCEDURE PERFORMED 1. Left heart catheterization 2. Selective right and left coronary angiography. 3. Left ventriculogram 4. Right heart cath INDICATION ST-segment elevation OR/shock APPROACH Right transfemoral DESCRIPTION OF PROCEDURE Consent signed. The patient was brought emergently to the cardiac chemical laboratory tester. The right groin was prepped and draped in a sterile fashion. Using 1% lidocaine for local anesthesia, micropuncture kit, a 6-[place] sheath was inserted into the right common femoral artery and a 7-[place] sheath into the right femoral vein. Right common femoral angiography was performed to confirm position in the sheath, then selective right and left coronary angiography was performed with a JR-4 and JL-4 diagnostic catheters. Angiography was taken in multiple views. Then an angled pigtail was introduced through the ventricle over a wire. This was followed by pressure recordings, left ventriculogram and pullback. After the left heart cath was done, a 7 [place] sheath [place] was floated into wedge through the right femoral vein sheath. Pressures were recorded in wedge in the main pulmonary artery, in the right ventricle and in the right atrium. The patient tolerated the procedure well without complications. Estimated blood loss was less than 30 cc. Total contrast used 100 cc. RESULTS Right heart wedge pressure 47/51 with a mean of 39, main pulmonary artery 61/42 with a mean of 52. Right ventricular pressure 77/28, with a mean of 45. Right atrial pressure 26/26 with a mean of 23. LEFT VENTRICLE The left ventricular pressure was 77/19 with an LVEDP of 33. The aortic pressure was 77/40 with a mean of 56. There was an OR gradient on pullback from the left ventricle to aorta. Left ventriculogram revealed estimated ejection fraction of 40% and diffuse hypokineses angiography. ANGIOGRAPHY 1. Right coronary artery: The right coronary artery is a dominant vessel giving off the PDA. It is small and diffusely diseased, however with no significant obstructive coronary artery disease. 2. The left main is small and patent and is giving off the LAD as a small ramus vessel and the left circumflex artery. The LAD is a transapical vessel has minimal luminal irregularities, however, no significant obstructive coronary artery disease. It is giving off one diagonal vessel which is patent. 3. The left circumflex artery is diffusely disease. It has a 40% lesion in its proximal segment and is giving off one obtuse marginal vessel. This vessel is patent with SHEILA-III flow. 4. The ramus intermedius is small and patent. CONCLUSION 1. No significant obstructive coronary artery disease, 2. Depressed LV systolic function with estimated ejection fraction of 40% 3. Elevated LVEDP 4. Elevated right heart pressures. RECOMMENDATIONS The patient will be admitted to the intensive care unit for post cath care and supportive management. She will get emergent dialysis given her acute kidney injury and electrolyte abnormalities. There is a concern that her presentation is from an overdose. Consider CT of the chest also to rule out PE. The case has been discussed with wildlife biologist, Dr. Xu Alvarado. MD EPIFANIO Alvarez/KIERA /7:43 AM /9:04 AM JOSE ALFREDO
--- NOTE | 2017-01-18 09:24 | RADRPT ---
EXAM DATE/TIME: 01/18/2017 08:57 [facility] COMPARISON: CHEST SINGLE AP, January 18, 2017, 6:11. INDICATIONS : Central line placement. MEDICAL HISTORY : None. SURGICAL HISTORY : None. ENCOUNTER: Initial ACUITY: 1 day PAIN SCORE: Non-responsive. LOCATION: Bilateral chest FINDINGS: Portable AP view of the chest demonstrates a normal-sized cardiac silhouette. ETT, NG tube, left IJ l ine, and right subclavian central line remain present. Left subclavian central line has been placed a nd distal tip is now well-visualized but may be within the right atrium or right ventricle outflow tr act. No pneumothorax is visualized. Lungs are underinflated with bibasilar airspace opacity, left gre ater than right. CONCLUSION: 1. Left subclavian central line is present and may represent a pulmonary artery catheter. Distal tip is not well-visualized but may be within the right atrium or right ventricle outflow tract. No pneumo thorax. 2. Underinflation with bibasilar airspace opacity, left greater than right, representing either atele ctasis or airspace consolidation. Loy Nichols MD on January 18, 2017 at 9:21 Board Certified Radiologist. This report was verified electronically.
--- NOTE | 2017-01-18 09:46 | EKG ---
Date Performed: 01/18/2017 Time Performed: 04:52:03 PTAGE: 61 years EKG: ECTOPIC ATRIAL TACHYCARDIA BORDERLINE RIGHT AXIS DEVIATION POSSIBLE RIGHT VENTRICULAR CONDU CTION DELAY ST DEPRESSION, CONSIDER SUBENDOCARDIAL INJURY ABNORMAL ECG PREVIOUS TRACING 01/18/17 Since prior tracing, the patient is now has a narrow complex tachyca rdia. Previously seen ST changes are present, but not as prominent. DOCTOR: Awais Muñiz Interpretating Date/Time 01/18/2017 09:45:24
--- NOTE | 2017-01-18 09:46 | EKG ---
Date Performed: 01/18/2017 Time Performed: 03:40:14 PTAGE: 61 years EKG: Sinus rhythm MARKED LEFT AXIS DEVIATION NONSPECIFIC ST & T-WAVE ABNORMALITY ABNORMAL ECG INTERPRETATION BASED ON A DEFAULT AGE OF 42 YEARS NO PREVIOUS TRACING Diffuse ST depressions with ST elevations and AVR. Acute injury shoul d be considered. Clinical correlation recommended. DOCTOR: Awais Muñiz Interpretating Date/Time 01/18/2017 09:44:37
--- NOTE | 2017-01-18 10:10 | CATHPROC ---
[facility] HIS Report Study Information Study Number Admission Scheduled Start Study Start [id number] Jan 18 2017 3:39AM 01/18/2017 Jan 18 2017 6:08AM [place] [facility] Cardiac Catheterization Admit Source Facility Department Emergency department [facility] - Production Leader Physician and Clinical Staff Initial Lalo Wiggins Websphere Process Server Developer Alice Ratliff,RN Websphere Process Server DeveloperJessy Dickson,ELLI Scrub Marcelo Farnsworth RCIS(BS) X-Ray cathlab, cathlab Procedures Performed Procedure Location (Site) Vessel Name Angiogram LV LV Ventricle Coronary Angiograms LCA Left Coronary Coronary Angiograms RCA Right Coronary LV Gram-hand inj. LV LV Ventricle Equipment Time Fabricator Foam Rubber Description Size Mfg Part Number Used/Scraped [id number] 06:48 WILSON HEIN SWAN ALICE CATHETER FR 7 Used *[id number] TRANSDUCER, TRUWAVE [id number] 06:29 WILSON HEIN * Used W/JENNI *[id number]-502-10.0- INTRODUCER SET, 06:29 [employer]. FR 5 SC-NT-U-SST Used MICROPUNCTURE, STIFFENED *[id number] 538-420 *[id number] 534-520T *[id number] 534-521T *[id number] 534-552S *[id number] 06:29 [place] IND[employer]RIES PACK, CCL CUSTOM * Used *[id number] 06:36 MEDTRONIC/AVE EBU 3.5 Z2 GUIDE CATHETER FR 6 Used *[id number]- 06:29 EQUIP Advantage MEDICAL SHEATH, FR6.5 PRELUDE 11CM FR 6.5 038ACT Used *[id number] 06:29 EQUIP Advantage MEDICAL WIRE, 3MMJ .035 180CM 180CM Used *[id number] 06:29 NAMIC MANIFOLD, 4 PORT * Used *[id number] 06:29 NYCOMED OMNIPAQUE, 350 MG, 150ML 150ML [id number] Used 07:07 NYCOMED OMNIPAQUE, 350 MG, 50ML 50ML [id number] Used [id number] 06:29 LARSON MEDICAL BLANKET,WARM AIR CCL * Used *[id number] 06:46 TERUMO MEDICAL SHEATH, FR7 TERUMO (10CM) FR 7 Used *[id number] History: Current Medications Medication Dosage/Unit Route Frequency Last Date/Time Taken Glucophage History: Allergies Allergy Reaction No Known Allergies History: Risk Factors Family History of Hypertension Dyslipidemia Previous NC Previous Heart Failure Premature CAD Yes No No No No Prior Valve Prior PCI Prior CABG Surgery No No No Cerebrovascular Peripheral Artery Chronic Lung On Dialysis Diabetes Diabetes Therapy Disease Disease Disease No No No No Yes Diet History: Stress Tests Stress or Imaging Studies Performed No Labs Hgb (g/dl) Hct (%) RBC (MIL/MM3) WBC (l/cumm) Platelets (thousands) 11.60-17.00 35.00-51.00 4.00-5.90 4.00-11.00 150.00-450.00 11.3 34.3 3.3 12.1 196 Glucose (mg/dl) BUN (mg/dl) Creatinine (mg/dl) BUN:Creatinine (1:x) 74.00-106.00 7.00-18.00 0.50-1.30 10.00-20.00 146 92 9.4 9.8 Na (meq/l) K (meq/l) 136.00-145.00 3.50-5.10 125 4.2 PT (sec) INR (PTT:PT) 9.80-11.60 0.90-1.10 11.2 1 Troponin I (ng/ml) CPK (u/l) CPK-MB (ng/ML) 0.02-0.05 26.00-308.00 0.50-3.60 2 441 11.4 Medication Medication Total Dose (Bolus/Oral) Medication Total Dosage/Unit 1% XYLOCAINE 20 mL FENTANYL 50 mcg/hr PROPOFOL 60 mL/hr VERSED 2 mg/hr Medications (Bolus/Oral) Medication Time Given Dosage/Unit Administered By Reason FENTANYL 01/18/2017 6:19:19 AM 50 mcg/hr cathlab, cathlab 50 mcg/hr FENTANYL given in lab by cathlab, cathlab via Peripheral IV. Pump/Drip Flow = 0 ml/hr using [Solution Name]. Ordered by Lalo Waterman. PROPOFOL 01/18/2017 6:19:26 AM 20 mL/hr cathlab, cathlab 20 mL/hr PROPOFOL given in lab by cathlab, cathlab via Peripheral IV. Pump/Drip Flow = 0 ml/hr using [Solution Name]. Ordered by Lalo Waterman. VERSED 01/18/2017 6:19:26 AM 2 mg/hr cathlab, cathlab 2 mg/hr VERSED given by cathlab, cathlab via Peripheral IV. Pump/Drip Flow = 0 ml/hr using [Solution Name]. 1% XYLOCAINE 01/18/2017 6:32:44 AM 20 mL Lalo Waterman 20 mL 1% XYLOCAINE given in lab by Lalo Waterman in Right Groin via Subcutaneous. Ordered by Lalo Chin. PROPOFOL 01/18/2017 6:57:34 AM 10 mL/hr Alice Ratliff 10 mL/hr PROPOFOL given in lab by Alice Ratliff RN via Peripheral IV. Pump/Drip Flow = 0 ml/hr usi ng [Solution Name]. Ordered by Lalo Chin. PROPOFOL 01/18/2017 6:59:52 AM 5 mL/hr Alice Ratliff 5 mL/hr PROPOFOL given in lab by Alice Ratliff RN via Peripheral IV. Pump/Drip Flow = 0 ml/hr usin g [Solution Name]. Ordered by Lalo Chin. PROPOFOL 01/18/2017 7:11:51 AM 10 mL/hr Alice Ratliff 10 mL/hr PROPOFOL given in lab by Alice Ratliff RN via Peripheral IV. Pump/Drip Flow = 0 ml/hr usi ng [Solution Name]. Ordered by Lalo Chin. PROPOFOL 01/18/2017 7:19:31 AM 15 mL/hr Alice Ratliff 15 mL/hr PROPOFOL given in lab by Alice Ratliff RN via Peripheral IV. Pump/Drip Flow = 0 ml/hr usi ng [Solution Name]. Ordered by Lalo Chin. Medication (Drip) Medication Time Given Dosage/Unit Concentration/Unit Diluent (ml) Solution DOPAMINE HCL 01/18/2017 6:19:28 AM 0 mcg/kg/min 800 mg 500 NaCl .9 0 mcg/kg/min DOPAMINE HCL given in lab by cathcotnreras, matteolab via Peripheral IV. Pump/Drip Flow = 20 ml/ hr using NaCl .9 with a concentration of 800 mg in 500 ml. Ordered by Lalo Waterman. LEVOPHED 01/18/2017 6:19:14 AM 10 mcg/min 4 mg 250 D5W 10 mcg/min LEVOPHED given in lab by cathcontreras cathcontreras via Central IV. Pump/Drip Flow = 37.5 ml/hr usin g D5W with a concentration of 4 mg in 250 ml. Ordered by Lalo Waterman. Initial Case Assessment Cardiovascular HR Rhythm NIBP Chest Pain 124 STEMI 105/49 0 Edema Present Skin color Skin None Normal Warm Dry Circulatory - Lower Extremities Color Lower Right Color Lower Left Normal Normal Neurological State Unresponsive Respiration - General Respiration Rate SpO2 (%) O2 (lpm) (B/min) 17 100 15 Respiration - Ventilator Type Intubation Type Alarm Setting ET(oral) On Respiration - Ventilator Settings TV (ml) IMV (L) FIO2 (%) PEEP (cm/H2O) 500 18 100 5 Final Case Assessment Cardiovascular HR Rhythm NIBP Chest Pain 106 STEMI 84/49 0 Edema Present Skin color Skin None Normal Warm Dry Circulatory - Lower Extremities Color Lower Right Color Lower Left Normal Normal Neurological State Unresponsive Respiration - General Respiration Rate SpO2 (%) O2 (lpm) (B/min) 15 100 15 Respiration - Ventilator Type Intubation Type Alarm Setting ET(oral) On Respiration - Ventilator Settings TV (ml) IMV (L) FIO2 (%) PEEP (cm/H2O) 500 18 100 5 Chronological Log Time Study Chronological Log 6:17:14 Patient arrived via Bed. 6:17:16 Patient Name, D.O.B, / Armband Verified By R.N. 6:17:50 A # 20 IV was noted in the Antecubital (left). Grade = 0 6:19:02 PATIENT GIVEN 5000 HEPARIN IN ED 10 mcg/min LEVOPHED given in lab by cathfabián chairez via Central IV. Pump/Drip Flow = 37.5 ml/h r using D5W with a 6:19:14 concentration of 4 mg in 250 ml. Ordered by Lalo Waterman. 6:19:14 Consent signed by the physician and the patient and verified by the Production Leader staff. 6:19:14 Pre-op and post- op instructions given; patient acknowledges understanding of instructions. 6:19:15 Verbal Stimulation=0 Physical Stimulation=0 Airway=2 Respiration=2 TOTAL=4. (0=absent, 1=li mited, 2=present) 50 mcg/hr FENTANYL given in lab by cathlab cathlab via Peripheral IV. Pump/Drip Flow = 0 ml/hr using [Solution 6:19:19 Name]. Ordered by Lalo Waterman. ::19 Patient has been NPO for Less than 6Hrs. 6:19:20 Skin Breakdown- 6::21 Patient Warmer Placed on the Table. ::22 Disposable Defibrillator Pads Placed On Patient. 6::25 A # 20 IV was noted in the Antecubital (right). Grade = 0 20 mL/hr PROPOFOL given in lab by cathcontreras cathlab via Peripheral IV. Pump/Drip Flow = 0 ml/hr using [Solution :: Name]. Ordered by Lalo Waterman. :: 2 mg/hr VERSED given by cathlab, cathlab via Peripheral IV. Pump/Drip Flow = 0 ml/hr using [Solution Name]. : History and physical on the chart or being dictated. Assessment: Initial Case, DZ=783 BPM, Rhythm=STEMI, LOWA=117/49 mmhg, Chest Pain=0, Edema=None, Color=Normal, Skin = Warm, Dry Lower Right Extremities: Color=Normal :: Lower Left Extremities: Color=Normal Neurological: State=Unresponsive Respiration: Resp=17 B/min, ZtB6=372 %, O2=15 lpm, Type=ET(Oral), Alarm=On, YW=940 mL, IMV=18 L, XJC3=074 %, PEEP=5 cm/H2O 0 mcg/kg/min DOPAMINE HCL given in lab by cathlab cathlab via Peripheral IV. Pump/Drip Flow = 2 0 ml/hr using NaCl 6:19:28 .9 with a concentration of 800 mg in 500 ml. Ordered by Lalo Waterman. 6:19:30 A # ~SIZE~ IV was noted in the Jugular Vein (right). Grade = 0 TRIPLE LUMEN Vitals capture started with the following parameters, Patient=Adult, Interval=5 min, Initial Pre klbzt=620 mmHg, 6:23:10 Deflation Rate=5 mmHg, Cuff placed on Left Arm 6:23:45 AS=340 bpm, NIBP=76/57 mmhg, JmW9=511 %, Pain=0, Sushila=0, Marina=6 6:27:50 Reference ECG taken 6:29:52 MZ=827 bpm, WMHS=624/49 mmhg, NcH2=776.0 %, Resp=20 B/min, Pain=0, Sushila=0, Marina=6 Time Out. Correct patient, correct procedure,correct physician, ,power injector loaded or not lo aded with contrast with 6:31:24 surgical team present. Time Out Concurred by MD, individual staff and MARKET RESEARCHER in procedure 6:31:25 Case Start 6:32:26 Pressure channel 1 zeroed. 20 mL 1% XYLOCAINE given in lab by Lalo Waterman in Right Groin via Subcutaneous. Ordered by Guevara, 6:32:44 Lalo. 6:32:52 Access site was Right Femoral Artery. 6:33:47 BK=786 bpm, APRH=291/53 mmhg, DtB8=148.0 %, Resp=15 B/min, Pain=0, Sushila=0, Marina=6 A INTRODUCER SET, MICROPUNCTURE, STIFFENED FR 5 was advanced into the Fem Art (right) using the 6:34:49 ~TECHNIQUE~ technique. A SHEATH, FR6.5 PRELUDE 11CM FR 6.5 was exchanged in the Fem Art (right). This was necessary in order for 6:34:52 catheter support. A JR 4.0 INFINITI CATHETER FR 5 was advanced over a wire. OMNIPAQUE, 350 MG, 150ML 150ML was use d for 6:35:43 injections. 6:37:29 Pressure channel 1 zeroed. Recorded Pressure: LV, WH=713, Condition=Condition 1 6:37:40 (Left Ventricle) LV 138/24/40 6:38:01 The LV was manually injected with 10 cc's and visualized. OMNIPAQUE, 350 MG, 150ML 150ML use d. Recorded Pressure: LV, Ao, VJ=334, Condition=Condition 1 6:38:12 (Left Ventricle) LV 137/22/39, (Aorta) Ao 117/66/89 6:38:46 JG=154 bpm, JUWY=145/66 mmhg, TfJ7=753.0 %, Resp=18 B/min, Sushila=6, Marina=6 6:39:29 The RCA was injected and visualized at various angles. OMNIPAQUE, 350 MG, 150ML 150ML used. After removing the current catheter a JL 4.0 INFINITI CATHETER FR 5 was advanced over a WIRE, 3M MJ .035 180CM 6:39:40 180CM. Recorded Pressure: Ao, UI=068, Condition=Condition 1 6:40:36 (Aorta) Ao 91/39/62 6:40:44 The LCA was injected and visualized at various angles. OMNIPAQUE, 350 MG, 150ML 150ML used. After removing the current catheter a JL 4.0 INFINITI CATHETER FR 4 was advanced over a WIRE, 3M MJ .035 180CM 6:43:15 180CM. 6:43:52 DY=562 bpm, EQCE=614/44 mmhg, WiE7=165.0 %, Resp=17 B/min, Sushila=6, Marina=6 6:47:36 Access site was Right Femoral Vein. 6:47:48 A SHEATH, FR7 TERUMO (10CM) FR 7 was advanced into the Fem Vein (right) using the Modified S eldinger technique. 6:48:16 A catheter was inserted via Fem Vein (right) Recorded Pressure: PCW, IM=837, Condition=Condition 1 6:48:34 (Pulmonary Capillary Wedge) PCW 47/51/39 Recorded Pressure: MPA, TU=937, Condition=Condition 1 6:48:54 (Main Pulmonary Artery) MPA 61/42/52 Recorded Pressure: RV, SA=744, Condition=Condition 1 6:49:27 (Right Ventricle) RV 77/28/45 6:49:27 DU=149 bpm, FSYB=524/71 mmhg, KgT7=166.0 %, Resp=13 B/min, Sushila=6, Marina=6 Recorded Pressure: RA, XK=363, Condition=Condition 1 6:50:00 (Right Atrium) RA 26/26/23 6:51:35 [place] Alice Catheter Removed 6:53:50 QG=970 bpm, MZFA=082/64 mmhg, IeC1=766.0 %, Resp=11 B/min, Sushila=6, Marina=6 10 mL/hr PROPOFOL given in lab by Alice Ratliff RN via Peripheral IV. Pump/Drip Flow = 0 ml/h r using [Solution 6:57:34 Name]. Ordered by Lalo Waterman. Recorded Pressure: Ao, OT=970, Condition=Condition 1 6:57:57 (Aorta) Ao 131/63/86 6:58:51 WM=980 bpm, KDLV=510/51 mmhg, YuG6=913.0 %, Resp=15 B/min, Sushila=6, Marina=6 5 mL/hr PROPOFOL given in lab by Alice Ratliff RN via Peripheral IV. Pump/Drip Flow = 0 ml/hr using [Solution 6:59:52 Name]. Ordered by Lalo Waterman. 7:00:50 DOPAMINE DISCONTINUED 7:05:09 Vitals capture stopped. Vitals capture started with the following parameters, Patient=Adult, Interval=5 min, Initial Pre evsrq=945 mmHg, 7:06:09 Deflation Rate=5 mmHg, Cuff placed on Left Arm A PIGTAIL ANG. INFINITI CATHETER FR 5 was advanced over a wire. OMNIPAQUE, 350 MG, 50ML 50ML was used for 7::27 injections. 7:08:28 Vitals capture stopped. Vitals capture started with the following parameters, Patient=Adult, Interval=5 min, Initial Pre tqebb=016 mmHg, :08:34 Deflation Rate=5 mmHg, Cuff placed on Left Arm Recorded Pressure: LV, HR=99, Condition=Condition 1 7:08:41 (Left Ventricle) LV 102/29/43 7:09:46 The LV was injected at 15 cc/sec for a total of 30. OMNIPAQUE, 350 MG, 50ML 50ML used. 7:09:50 Catheter was removed Recorded Pressure: LV, Ao, HR=91, Condition=Condition 1 7:10:41 (Left Ventricle) LV 77/19/33, (Aorta) Ao 77/40/56 7:10:54 HR=90 bpm, NIBP=72/34 mmhg, AtD0=761.0 %, Resp=17 B/min, Sushila=6, Marina=6 10 mL/hr PROPOFOL given in lab by Alice Ratliff, ELLI via Peripheral IV. Pump/Drip Flow = 0 ml/h r using [Solution 7:11:51 Name]. Ordered by Lalo Waterman. 7:12:12 Case End 7:15:16 HR=95 bpm, NIBP=79/41 mmhg, CjZ8=195.0 %, Resp=16 B/min, Sushila=6, Marina=6 7:19:09 HR=97 bpm, NIBP=87/39 mmhg, UnQ8=163.0 %, Resp=12 B/min, Sushila=6, Marina=6 15 mL/hr PROPOFOL given in lab by Alice Ratliff, RN via Peripheral IV. Pump/Drip Flow = 0 ml/h r using [Solution 7:19:31 Name]. Ordered by Lalo Waterman. 7:21:43 Catheter(s) removed without difficulty 7:21:45 In the Fem Art (right) the SHEATH, FR6.5 PRELUDE 11CM FR 6.[address] by Lalo Ny. 7:21:51 In the Fem Vein (right) the SHEATH, FR7 TERUMO (10CM) FR [address] by aLlo Ortiz. 7:22:05 Sterile dressing applied to site 7:22:06 No case complications noted. 7:22:19 Cine recording checked. 7:22:24 Contrast Scanned 7:22:40 A Left and Right Heart Cath was performed. 7:24:08 QM=740 bpm, NIBP=84/49 mmhg, TvV3=969.0 %, Resp=15 B/min, Sushila=6, Marina=6 Assessment: Final Case, TM=805 BPM, Rhythm=STEMI, NIBP=84/49 mmhg, Chest Pain=0, Edema=None, Color=Normal, Skin = Warm, Dry Lower Right Extremities: Color=Normal 7:26:44 Lower Left Extremities: Color=Normal Neurological: State=Unresponsive Respiration: Resp=15 B/min, YvP1=800 %, O2=15 lpm, Type=ET(Oral), Alarm=On, WL=175 mL, IMV=18 L, GJC0=741 %, PEEP=5 cm/H2O 7:27:26 Vitals capture stopped. 7:27:38 Patient moved to stretcher End Study - Contrast Media Used In Study Contrast Total Opened (mL) Total Used (mL) Total Wasted (mL) Omnipaque 90 90 0 End Study - Maximum Contrast Load Max Contrast Load (mL) 42.6 End Study - Radiation Exposure Fluoro Time (minutes) 5.4 End Study - Patient Disposition Complications Transferred To No Critical Care Bed
[2017-01-18] MEDS: EPOPROSTENOL NEB SOLUTION 50 NG/KG/MIN 100 ML NEB SCH ×4 (10:43→19:45)
[2017-01-18] MEDS: DOCUSATE SODIUM 50 MG/SENNA 8.6 MG TAB PO SCH ×2 (11:02→19:47)
[2017-01-18] MEDS: FAMOTIDINE 20 MG/2 ML VIAL IV PUSH SCH ×2 (11:03→19:47)
[2017-01-18] MEDS: GENTAMICIN SULFATE (DIALYSIS USE ONLY) 20 MG/2 ML VIAL IV PRN (12:19)
[2017-01-18] MEDS ORDERED: DEXT 5%-NACL 0.9% 1000 ML INJ 1,000 ML IV SCH (12:30)
[2017-01-18] MEDS ORDERED: CALCIUM CHLORIDE 10% SOLN 1 GRAM/10 ML SYR ONE (14:40)
--- NOTE | 2017-01-18 14:54 | RADRPT ---
EXAM DATE/TIME: 01/18/2017 13:22 [place] COMPARISON: No previous studies available for comparison. INDICATIONS : Increased BUN/creatinine. MEDICAL HISTORY : Hypertension. Cardiomyopathy. Coronary arteryd disease. Diabetes. Depression. Anxiety. SURGICAL HISTORY : Cardiac cath. ENCOUNTER: Initial ACUITY: 1 day PAIN SCORE: Nonresponsive. LOCATION: Bilateral flank MEASUREMENTS: RIGHT KIDNEY: 14.0 x 6.8 x 6.4 cm LEFT KIDNEY: 12.3 x 5.9 x 6.1 cm FINDINGS: The renal collecting systems are mildly distended. Large extrarenal pelvis these are noted bilaterall y. Renal cortex is well preserved. There are no suspicious masses or cysts. CONCLUSION: Mildly distended collecting systems with prominent bilateral renal pelvises suggestive of early hydro nephrosis. No evidence of suspicious renal lesions or nephrolithiasis. Felipe Javier MD on January 18, 2017 at 14:48 Board Certified Radiologist. This report was verified electronically.
[2017-01-18] MEDS ORDERED: CALCIUM CHLORIDE 10% SOLN 1 GRAM/10 ML SYR IV ONE (15:00)
[2017-01-18] MEDS ORDERED: POTASSIUM CHLOR 20 MEQ PREMIX 100 ML ONE (15:14)
[2017-01-18] MEDS ORDERED: ALBUMIN HUMAN 25% 25 GM/100 ML BAGP IV ONE (15:30)
[2017-01-18] MEDS ORDERED: ACETAMINOPHEN 1000 MG/100 ML 100 ML IV ONE (16:03)
[2017-01-18] MEDS: POTASSIUM CHLOR 20 MEQ PREMIX 100 ML IV SCH ×3 (16:29→17:39)
--- NOTE | 2017-01-18 17:08 | HHI.CCPN ---
Subjective Remarks/Hospital Course Hospital Course: 61-year-old female was brought in by EMT for altered mental status. She has a history of diabetes hypertension Xanax overdose in the past, she usually goes to [facility]. She had a Cardiac catheterization done there last year and she was told that she is got cardiomyopathy and she needs the bypass surgery however she didn't follow. Today when she was brought she was too lethargic and was intubated by ED attending for an airway protection. On presentation she is in cardiogenic shock, hypotensive on maximum dose of dopamine and Levophed. She is evaluated by microsoft windows engineer Dr. Day was given a taken emergently to cardiac catheterization. She was also discussed by ED attending with Dr. Rousseau, nephrology who is aware of patient's elevated creatinine and emergent hemodialysis shortly after catheterization. Subjective: 01/18 Additional documentation: Patient taken emergently to lab analyst. I was called to assist and evaluate patient in lab analyst. patient in shock on dopamine and levophed. LHC without evidence of CAD. LVgram suggestive of normal EF. LVEDP severely elevated ~38 mmHg. RHC with evidence of severe pulmonary hypertension, RVSP 77 mmHg. left and right heart cath suggestive of severe CHF exacerbation with preserved EF, and her critical illness may be secondary to cardiogenic shock. Discussed with Dr. Day, plan to place in CVICU with Tavares in place and pursue volume removal, inotropic therapy with milrinone and inhaled flolan. Placed swan (see separate procedure note for details). CI 3.6, cvp 15, pcwp 25. svo2 55%. febrile to 101. repeat troponin went from 2 to 40. still very critically ill. in mixed shock. Objective Vital Signs Date Time Temp Pulse Resp B/P (MAP) Pulse Ox O2 Delivery O2 Flow Rate FiO2 01/18/17 15:48 116 99/50 01/18/17 15:00 100.0 24 90 01/18/17 15:00 80 01/18/17 05:47 Ventilator 01/18/17 03:59 2.00 Intake and Output 01/18/17 01/18/17 01/18/17 07:59 15:59 23:59 Intake Total 7350 ml 394 ml 100 ml Output Total 2000 ml Balance 7350 ml -1606 ml 100 ml Result Diagram: 01/18/17 0350 01/18/17 0350 Other Results Laboratory Tests Test 01/18/17 04:30 Blood Gas Puncture Site LT RADIAL Blood Gas Patient Temperature 98.6 Blood Gas HCO3 11 mmol/L (22-26) Blood Gas Base Excess -16.7 mmol/L (-2-2) Blood Gas Oxygen Saturation 98 % (90-100) Arterial Blood pH 7.08 (7.380-7.420) Arterial Blood Partial Pressure CO2 40 mmHg (38-42) Arterial Blood Partial Pressure O2 344 mmHG (61-120) Arterial Blood Oxygen Content 17.3 Vol % (12.0-20.0) Arterial Blood Carboxyhemoglobin 0.8 % (0-4) Arterial Blood Methemoglobin 0.8 % (0-2) Blood Gas Hemoglobin 12.0 G/DL (12.0-16.0) Oxygen Delivery Device VENTILATOR Blood Gas Ventilator Setting AC/18/550/PEEP6 Blood Gas Inspired Oxygen 100 % Objective Remarks GENERAL: Sedated and intubated obese female. SKIN: Warm and dry. HEAD: Normocephalic. EYES: No scleral icterus. No injection or drainage. NECK: trachea midline. right SC TLC and left IJ vascath in place, sites look clean and dry, dressings intact. CARDIOVASCULAR: Regular rate and rhythm without murmurs, gallops, or rubs. RESPIRATORY: Breath sounds equal bilaterally. No accessory muscle use. GASTROINTESTINAL: Abdomen soft, non-tender, nondistended. MUSCULOSKELETAL: No cyanosis, or edema. NEURO EXAM: GCS: M5 Vt E2 Mental Status: The patient is sedated and intubated Cranial Nerves: Pupils are round, reactive to light.. RASS -3. w/d to pain. A/P Assessment and Plan Assessment: 61yF with h/o NICM, presented with hypoxia, respiratory distress and undifferentiated shock, now likely combination septic and cardiogenic shock. requiring inotropes and vasopressors. also requiring emergent hemodialysis. abx, cultures, pressors. trend cardiac outputs with Tavares. Acute hypoxic Respiratory failure - No weaning until neurologically and hemodynamically stable - Vent bundle - ABG and CXR daily - likely combination of pulmonary edema, could be ?pneumonia. Cardiogenic shock - Stat cardiac catheterization per Dr. Day - Levophed and dopamine to keep MEP above 65 - Cardiac Catheterization stat - milrinone - swan - trend cardiac output - trend lactates - watch uop - 2d echo Acute coronary syndrome - Per cardiology Dr. Day - [facility] 01/18 clean coronaries. Severe metabolic acidosis - Acute kidney injury - History of metformin - d/c bicarb drip after IHD Acute kidney injury requiring emergent IHD - Dr. Rousseau - Stat hemodialysis - Strict I's and Diabetes mellitus - Hold metformin due to above - Insulin sliding scale DVT GI prophylaxis - Heparin drip - Pepcid Critical Care: The total critical care time was 80 minutes. Time to perform other separately billable procedures was not included in the critical care time. Isacc Alvarado MD Jan 18, 2017 17:08
--- NOTE | 2017-01-18 17:09 | PD.PROCEDR ---
Procedure Note Procedure Procedure: Arterial Line Placement Left axillary arterial line with ultrasound Diagnosis: Cardiogenic shock Indications: Need for beat to beat hemodynamic monitoring Consent: Emergent Description of the Procedure: The left axilla was prepped and draped sterilely. 1% lidocaine was used for local anesthesia. Ultrasound guidance was used for this procedure. The vascular anatomy of the left axilla was normal. Under direct ultrasound visualization, The artery was located and a needle was advanced into the artery. A 20 gauge, 12 cm catheter was advanced into the artery using a modified Seldinger technique. The catheter was sutured to the skin and a sterile dressing was applied. The catheter was connected to a pressure transducer and an arterial waveform was noted. There were no immediate complications noted. There was minimal EBL. I personally performed the procedure. Isacc Alvarado MD Jan 18, 2017 17:09
--- NOTE | 2017-01-18 17:10 | PD.PROCEDR ---
Procedure Note Procedure Central Line Procedure Note Left sub-clavian 8.5 Anguillan introducer sheath Diagnosis: Cardiogenic shock Indications: Cardiac shock requiring central pressure monitoring Consent: Emergent Anesthesia: Propofol IV Description of the Procedure: The patient was placed in the supine, mild- Trendelenburg position. The area was prepped and draped sterilely. A 19g needle was inserted under negative pressure aspiration and dark venous blood was obtained. A guidewire was inserted easily without resistance. A small incision was made using a #11 blade. Using a modified Seldinger technique, the dilator and 8.5 Anguillan 10 cm catheter were advanced over the guidewire without resistance. All ports were aspirated and flushed, and had brisk blood return. The line was secured at the skin using 2-0 silk interrupted sutures. A Biopatch and Transparent sterile dressing were applied. There were no immediate complications noted. There was minimal EBL. The patient tolerated the procedure well. Ultrasound guidance was not used for this procedure A Chest x-ray has been ordered. I personally performed the procedure. Isacc Alvarado MD Jan 18, 2017 17:10
--- NOTE | 2017-01-18 17:12 | PD.PROCEDR ---
Procedure Note Procedure Pulmonary Artery Catheter Procedure Note Left subclavian PA catheter Diagnosis: Cardiogenic shock Indications: Need for central pressure monitoring, need for thermodilution cardiac output Consent: Emergent Anesthesia: Propofol IV Description of the Procedure: The patient was placed in the supine, mild-Reverse -Trendelenburg position. The area was prepped and draped sterilely. A 6 Fr pulmonary artery catheter was flushed, and all ports were checked, including PA , CVP, infusion port. The balloon was tested and inflated and deflated easily. Through an existing introducer sheath, the catheter was inserted to a depth of 20 cm and the balloon was inflated without resistance. The PA catheter was advanced under continuous waveform hemodynamic monitoring and appropriate RA, RV , PA, and PCWP waveforms were achieved. The balloon was deflated. The line was secured to the introducer sheath using a sterile cover. There were no immediate complications noted. There was minimal EBL. The patient tolerated the procedure well. PA catheter secured at: 52 cm. Hemodynamic Data: RAP: 15 mmHg RV: 43/10 (25) mmHg PAP: 47/30 (37) mmHg PCWP: 25 mmHg achieved at 54 cm Mixed Venous SvO2: 55 % Cardiac Output: 7 L/min Cardiac Index: 3.6 A Chest x-ray has been ordered. I personally performed the procedure. Isacc Alvarado MD Jan 18, 2017 17:12
[2017-01-18] MEDS ORDERED: Vancomycin Consult Pharmacy 1 EA OTHER SCH (17:15)
[2017-01-18] MEDS ORDERED: GLUCAGON 1 MG/ML VIAL OTHER PRN (18:00)
[2017-01-18] MEDS ORDERED: MEDIUM DOSE INSULIN NOVOLOG SUPPLEMENTAL SCALE SQ SCH (18:00)
[2017-01-18] MEDS: MEDIUM DOSE INSULIN NOVOLOG SUPPLEMENTAL SCALE SQ SCH (18:01)
[2017-01-18] MEDS: PIPERACIL-TAZO 2.25 GM PREMIX 50 ML IV SCH (18:02)
--- NOTE | 2017-01-18 18:30 | ECHRPT ---
Indication: Heart failure CONCLUSIONS The left ventricular systolic function is mildly reduced with an estimated ejection fraction in the range of 45- 50% (perhaps apical hypokinesis) There was limited left ventricular wall motion assessment due to poor endocardial visualization. Moderate mitral valve regurgitation. The aortic valve is not well visualized (Doppler in the vicinity picks up large gradient but believe it is contaminated by MR signal and thus not reliable) The estimated pulmonary arterial pressure is 56 mmHg. Overall very difficult study, would consider alternate imaging modality if clinically indicated. BP: 99 / 50 HR: 66 Rhythm: Sinus MEASUREMENTS (Male / Female) Normal Values Technical Quality:Very technically difficult study 2D ECHO LVOT Diameter 1.6 cm LV Ejection Fraction MOD 4C 49.2 % LV Cardiac Index MOD 4C 1090.5 cm/minm LV Ejection Fraction 4C AL 53.8 % LV Cardiac Index 4C AL 1243.5 cm/minm DOPPLER AV Peak Velocity 398.7 cm/s AV Peak Gradient 63.6 mmHg AV Mean Gradient 54.5 mmHg AV Velocity Time Integral 71.3 cm LVOT Peak Velocity 479.0 cm/s LVOT Peak Gradient 91.8 mmHg LVOT Velocity Time Integral 68.5 cm LVOT Cardiac Index 4693.4 cm/minm AV Area Cont Eq vti 1.9 cm AV Area Cont Eq pk 2.4 cm MV Area PHT 6.9 cm Mitral E Point Velocity 115.0 cm/s Mitral A Point Velocity 167.0 cm/s Mitral E to A Ratio 0.7 TR Peak Velocity 339.0 cm/s TR Peak Gradient 46.0 mmHg FINDINGS LEFT VENTRICLE The left ventricular systolic function is mildly reduced with an estimated ejection fraction in the range of 45- 50%. Normal left ventricular size. There was limited left ventricular wall motion assessment due to poor endocardial visualization. MITRAL VALVE Mitral annular calcification is present. Moderate mitral valve regurgitation. AORTIC VALVE The aortic valve is not well visualized. Mild aortic valve stenosis. Aortic valve area is 1.9 cm. Aortic valve mean gradient is 54.5 mmHg. THESE READINGS ARE UNRELIABLE DUE TO POOR IMAGING TRICUSPID VALVE There is mild tricuspid valve regurgitation. The estimated pulmonary arterial pressure is 56 mmHg. Awais Mñuiz MD (Electronically Signed) Final Date:18 January 2017 18:29
[2017-01-18 18:36] LABS: CKMB 218.4 NG/ML (0.5-3.6)
[2017-01-18 21:54] LABS: BLOOD, URINE MOD (NEG); GLUCOSE,URINE 1000 mg/dL (NEG); KETONE, URINE TRACE mg/dL (NEG); MUCUS URINE FEW /lpf (OCC); NITRITE,URINE NEG (NEG); PH, URINE 5.5 (5.0-8.5); SQUAMOUS EPITHELIAL CELL URINE <1 /hpf (0-5); URINE COLOR LIGHT-YELLOW (YELLW/STRAW)
[2017-01-18 21:58] LABS: COMMENT (UR) CATH-CULTURE IND; CULTURE IF INDICATED CATH CULTURE IND
[2017-01-19] VITALS (32 sets, daily range): BP systolic 89–121; BP diastolic 48–65; PULSE 113–136; RESP 24; TEMP 99.5–100; O2SAT 99
[2017-01-19] MEDS: MEDIUM DOSE INSULIN NOVOLOG SUPPLEMENTAL SCALE SQ SCH ×4 (01:11→17:38)
[2017-01-19] MEDS: PIPERACIL-TAZO 2.25 GM PREMIX 50 ML IV SCH ×3 (02:06→17:38)
[2017-01-19] MEDS: NOREPINEPHRINE-DEXTROSE DRIP 250 ML IV PRN ×4 (03:29→20:11)
[2017-01-19] MEDS: EPOPROSTENOL NEB SOLUTION 50 NG/KG/MIN 100 ML NEB SCH ×6 (03:29→17:37)
[2017-01-19] MEDS: CHLORHEXIDINE GLUCONATE 2 % 1 PACK (2 CLOTHS) TOP SCH (04:00)
[2017-01-19 04:50] LABS: AUTOMATED NEUTROPHIL # 7.9 TH/MM3 (1.8-7.7); BASOPHIL % 0.1 % (0.0-2.0); EOSINOPHIL % 0.2 % (0.0-4.0); HEMATOCRIT 28.2 % (35.0-46.0); LYMPH % 7.1 % (9.0-44.0); LYMPHOCYTE # 0.7 TH/MM3 (1.0-4.8); MEAN CELL VOLUME 100.1 FL (80.0-100.0); MONO % 12.5 % (0.0-8.0); NEUT % 80.1 % (16.0-70.0); PLATELET COUNT 130 TH/MM3 (150-450); RED BLOOD COUNT 2.82 MIL/MM3 (4.00-5.30); RED CELL DISTRIBUTION WIDTH 14.2 % (11.6-17.2); WHITE BLOOD COUNT 9.9 TH/MM3 (4.0-11.0)
[2017-01-19 04:53] LABS: HEMO FLAGS AUTO DIFF
[2017-01-19 04:57] LABS: INTERNATIONAL NORMALIZED RATIO 1.2 RATIO; PROTHROMBIN TIME - PATIENT 12.8 SEC (9.8-11.6)
[2017-01-19 05:27] LABS: ALKALINE PHOSPHATASE 68 U/L (45-117); ALT (GPT) 56 U/L (10-53); ANION GAP 14 MEQ/L (5-15); AST (GOT) 154 U/L (15-37); BICARBONATE 18.9 MEQ/L (21.0-32.0); BLOOD UREA NITROGEN 47 MG/DL (7-18); CALCIUM-PROTEIN CORRECTED 8.3 MG/DL (8.5-10.1); CHLORIDE 104 MEQ/L (98-107); GLOMERULAR FILTRATION RATE 9 ML/MIN (>89); MAGNESIUM 1.4 MG/DL (1.5-2.5); POTASSIUM 3.3 MEQ/L (3.5-5.1); SODIUM (NA) 137 MEQ/L (136-145); TOTAL BILIRUBIN ADULT 0.8 MG/DL (0.2-1.0)
[2017-01-19] MEDS: DOPamine INJ PREMIX 500 ML IV PRN ×2 (05:39→16:02)
[2017-01-19] MEDS: PROPOFOL 1000 MG/100 ML INJ 100 ML IV PRN (08:08)
[2017-01-19] MEDS: SODIUM CHLORIDE 0.9% FLUSH 10 ML FLUSH SCH ×2 (08:09→20:36)
[2017-01-19] MEDS: MILRINONE INJ 20 MG in SODIUM CHLORIDE 0.9% INJ 80 ML IV SCH ×2 (08:09→23:27)
[2017-01-19] MEDS: FAMOTIDINE 20 MG/2 ML VIAL IV PUSH SCH ×2 (08:55→20:37)
[2017-01-19] MEDS: DOCUSATE SODIUM 50 MG/SENNA 8.6 MG TAB PO SCH ×2 (08:55→20:37)
[2017-01-19] MEDS ORDERED: BUMETANIDE INJ 1 MG/4 ML VIAL IV PUSH ONE (09:00)
--- NOTE | 2017-01-19 09:07 | HHI.CCPN ---
Subjective Remarks/Hospital Course Hospital Course: 61-year-old female was brought in by EMT for altered mental status. She has a history of diabetes hypertension Xanax overdose in the past, she usually goes to [facility]. She had a Cardiac catheterization done there last year and she was told that she is got cardiomyopathy and she needs the bypass surgery however she didn't follow. Today when she was brought she was too lethargic and was intubated by ED attending for an airway protection. On presentation she is in cardiogenic shock, hypotensive on maximum dose of dopamine and Levophed. She is evaluated by certified low vision therapist Dr. Day was given a taken emergently to cardiac catheterization. She was also discussed by ED attending with Dr. Rousseau, nephrology who is aware of patient's elevated creatinine and emergent hemodialysis shortly after catheterization. 01/18 Additional documentation: Patient taken emergently to livestock laborer. I was called to assist and evaluate patient in livestock laborer. patient in shock on dopamine and levophed. LHC without evidence of CAD. LVgram suggestive of normal EF. LVEDP severely elevated ~38 mmHg. RHC with evidence of severe pulmonary hypertension, RVSP 77 mmHg. left and right heart cath suggestive of severe CHF exacerbation with preserved EF, and her critical illness may be secondary to cardiogenic shock. Discussed with Dr. Day, plan to place in CVICU with [place] in place and pursue volume removal, inotropic therapy with milrinone and inhaled flolan. Placed swan (see separate procedure note for details). CI 3.6, cvp 15, pcwp 25. svo2 55%. febrile to 101. repeat troponin went from 2 to 40. still very critically ill. in mixed shock. Subjective: 01/19: persists in cardiogenic shock. volume overload. dialyzed yesterday. now making urine, cr downtrending. remains on milrinone, dopamine, levophed. RHC numbers: HR 127. Art 116/61 (74). RAP 18. PAP 44/26 (33). PCWP 23. CO 6.0/ CI 3.1. SVR 696. PVR 1.6. Objective Vital Signs Date Time Temp Pulse Resp B/P (MAP) Pulse Ox O2 Delivery O2 Flow Rate FiO2 01/19/17 08:09 123 98/52 01/19/17 07:49 99 50 01/19/17 07:00 99.9 24 01/18/17 05:47 Ventilator 01/18/17 03:59 2.00 Intake and Output 01/19/17 01/19/17 01/20/17 08:00 16:00 00:00 Intake Total 1982 ml Output Total 2175 ml Balance -193 ml Result Diagram: 01/19/17 0424 01/19/174 Objective Remarks GENERAL: Sedated and intubated obese female. SKIN: Warm and dry. HEAD: Normocephalic. EYES: No scleral icterus. No injection or drainage. NECK: trachea midline. right SC TLC and left IJ vascath in place, left SC cordis and swan sites look clean and dry, dressings intact. CARDIOVASCULAR: tachycardic rate, regular rhythm. sinus by tele. RESPIRATORY: Breath sounds equal bilaterally. No accessory muscle use. GASTROINTESTINAL: Abdomen soft, non-tender, nondistended. MUSCULOSKELETAL: No cyanosis, or edema. NEURO EXAM: RASS -3. w/d to pain. becomes agitated on arousal from sedation which causes hypotension and hypoxia. A/P Assessment and Plan Assessment: 61yF with h/o cardiomyopathy, presented with hypoxia, respiratory distress and undifferentiated shock, now likely combination septic and cardiogenic shock. requiring inotropes and vasopressors. also requiring emergent hemodialysis. abx, cultures, pressors. UOP improving today, and may be able to use forced diuresis to optimize volume status. still grossly volume overloaded. remains on inotropes and vasopressors. Toxic encephalopathy -UDS + for bzd - continue sedation due to hemodynamic instability. - prop/fent for goal RASS -2 - d/c versed given renal clearance and renal dysfunction. Acute hypoxic Respiratory failure - No weaning until neurologically and hemodynamically stable. becomes unstable with sedation vacation. - Vent bundle - likely combination of pulmonary edema, could be ?pneumonia. - continue vanc/zosyn for empiric abx coverage. Cardiogenic shock - 01/[address] Day, no acute obstruction - Levophed and dopamine to keep MAP above 65 mmHg - milrinone at 0.3 mcg/kg/min - continue PA catheter today - trend cardiac output - trend lactates - watch uop Acute intravascular volume overload - bumex 4mg iv x 1 and diuril 500mg iv x 1 - need at least net negative 2-3L/24h. - may be forced to pursue HD again if not adequate uop. Acute coronary syndrome - Per cardiology Dr. Day - [facility] 01/18 clean coronaries. - after discussion with Dr. Day, given risk/benefits of anticoagulation with [facility] without evidence of acute occlusion, will not anticoagulate. Severe metabolic acidosis- resolving. - Acute kidney injury and cardiogenic shock - History of metformin Acute kidney injury requiring emergent IHD - Dr. Rousseau - Stat hemodialysis 01/18 - Strict I's and Os - will watch uop closely. may not require HD today if uop remains high. Diabetes mellitus - Hold metformin due to above - Insulin sliding scale DVT GI prophylaxis - Heparin drip - Pepcid Critical Care: The total critical care time was 77 minutes. Time to perform other separately billable procedures was not included in the critical care time. Isacc Alvarado MD Jan 19, 2017 09:07
[2017-01-19] MEDS: MAGNESIUM SULFATE 1 GM PREMIX 100 ML IV SCH ×4 (09:10→11:59)
[2017-01-19] MEDS: POTASSIUM CHLOR 20 MEQ PREMIX 100 ML IV SCH ×3 (09:11→13:08)
[2017-01-19] MEDS ORDERED: CHLOROTHIAZIDE SOD 500 MG VIAL IV ONE (10:00)
[2017-01-19 10:24] LABS: BANDS 22 % (0-6); POLYS (SEG NEUTROPHILS) 69 % (16-70); WBC DIFF SAMPLE 100
[2017-01-19 10:25] LABS: PLATELET ESTIMATE SMEAR LOW (NORMAL); PLATELET MORPHOLOGY NORMAL (NORMAL); SCAN/DIFF FINAL DIFF MANUAL
--- NOTE | 2017-01-19 12:53 | OTSOAPIP ---
TIME SESSION COMPLETED: TREATMENT TIME: 0 MINS. CHART REVIEWED. RECEIVED ORDERS FORM DR CRISTAL BAHTIA TO EVALUATE AND TREAT. PATIENT UNDERWENT CHANGE IN MEDICAL STATUS. UNDERWENT EMERGENT CARDIAC CATHETERIZATION,, CARDOGENIC SHOCK, HYPERTENSIVE RESPIRATORY DISTRESS REQUIRED INTUBATION. INTERDISCIPLINARY COMMUNICATION: PATIENT WILL REQUIRE RESTART ORDERS ONCE PATIENT IS MEDICALLY STABLE. NURSING WAS INFORMED. OCCUPATIONAL THERAPY SIGNING OFF Therapist: BHAVYA PABON/Mar[facility] Signature on file
--- NOTE | 2017-01-19 14:22 | EKG ---
Date Performed: 01/18/2017 Time Performed: 21:15:50 PTAGE: 61 years EKG: Sinus tachycardia Left axis deviation Possible inferior infarct - age undetermined Lateral T wave changes are nonspecific Abnormal ECG PREVIOUS TRACING : 01/18/2017 04.52 Compared to the prior EKG, previously present rsR pattern i n V1 and V2 is no longer present. The ectopic atrial tachycardia has been replaced with a sinus tachy cardia. Ischemic changes inferiorly and anterolateraly are no longer present. Clinical correlation re commended. DOCTOR: Mary Briscoe Interpretating Date/Time 01/19/2017 14:20:32
--- NOTE | 2017-01-19 16:46 | HHI.NPPN ---
Subjective History of Present Illness 61 year old female OD on prescription medications, intubated Interval History had hemodialysis yesterday Additional Remarks UOP increased Objective Data Data 01/19/17 01/20/17 19:00 07:00 Intake Total 750 ml Balance 750 ml Intake IV Total 750 ml Vital Signs Date Time Temp Pulse Resp B/P (MAP) Pulse Ox O2 Delivery O2 Flow Rate FiO2 01/19/17 16:02 114 93/51 01/19/17 16:00 114 01/19/17 15:49 99 40 01/19/17 15:00 124 01/19/17 15:00 100.0 125 24 93/53 (66) 99 93/51 (65) 01/19/17 15:00 125 01/19/17 15:00 40 01/19/17 14:00 125 01/19/17 13:00 118 112/64 (80) 113/62 (79) 01/19/17 12:49 119 85/40 01/19/17 12:00 121 01/19/17 11:05 99 50 01/19/17 11:00 50 01/19/17 11:00 125 01/19/17 11:00 121 01/19/17 11:00 100.0 125 24 95/51 (66) 99 96/49 (65) 01/19/17 10:00 127 01/19/17 09:00 127 109/63 (78) 114/61 (78) 01/19/17 08:09 123 98/52 01/19/17 08:09 123 98/52 01/19/17 08:00 127 92/48 (63) 98/52 (67) 01/19/17 07:49 99 50 01/19/17 07:00 120 01/19/17 07:00 50 01/19/17 07:00 127 91/55 (67) 96/52 (67) 01/19/17 07:00 99.9 127 24 91/55 (67) 99 96/52 (67) 01/19/17 06:07 119 104/56 (72) 103/62 (76) 01/19/17 05:39 123 105/58 01/19/17 05:00 121 98/51 (67) 104/60 (75) 01/19/17 04:00 118 115/58 (77) 105/58 (74) 01/19/17 03:29 116 112/56 01/19/17 03:24 99 50 01/19/17 03:11 50 01/19/17 03:10 113 01/19/17 03:10 99.5 114 24 118/60 (79) 99 119/64 (82) 01/19/17 03:00 114 118/60 (79) 119/61 (80) 01/19/17 02:00 113 116/57 (76) 108/64 (79) 01/19/17 00:14 50 01/19/17 00:13 99 50 01/19/17 00:00 113 121/65 (83) 116/59 (78) 01/18/17 23:14 99.2 114 24 122/53 (76) 99 109/56 (73) 01/18/17 23:14 113 01/18/17 23:00 114 122/53 (76) 109/56 (73) 01/18/17 22:49 119 109/57 01/18/17 22:40 99 50 01/18/17 22:00 117 117/57 (77) 109/57 (74) 01/18/17 20:35 99 50 01/18/17 19:21 99.0 117 24 118/54 (75) 99 112/59 (76) 01/18/17 19:00 117 118/54 (75) 112/59 (76) 01/18/17 19:00 50 01/18/17 19:00 114 01/18/17 18:30 120 /01/18/17 18:29 120 01/18/17 18:08 120 01/18/17 18:08 120 /01/18/17 18:08 120 -: 01/19/17 0424 01/19/17 0424 Microbiology 01/18/17 Aerobic Blood Culture - Preliminary, Resulted NO GROWTH IN 1 DAY 01/18/17 Anaerobic Blood Culture - Final, Resulted QNS - SEE AEROBE REPORT 01/18/17 Aerobic Blood Culture - Preliminary, Resulted NO GROWTH IN 1 DAY 01/18/17 Anaerobic Blood Culture - Final, Resulted QNS - SEE AEROBE REPORT 01/18/17 Gram Stain - Final, Resulted 01/18/17 Sputum Culture - Preliminary, Resulted IMMATURE GROWTH - REINCUBATE 01/18/17 Urine Culture - Preliminary, Resulted RESULTS PENDING Physical Exam General Appearance: Well Developed Neck Neck Exam: Neck Supple Pulmonary Resp Exam: Clear Bilaterally, Breath Sounds Equal Cardiology CV Exam: Regular, Normal Sinus Rhythm Gastrointestinal/Abdomen GI Exam: Soft, Non-Tender, Bowel Sounds Present Integumentary Skin Exam: Clear Extremeties Extremities Exam: No Edema Assessment/Plan Problem List: (1) Acute renal failure ICD Codes: N17.9 - Acute kidney failure, unspecified Status: Acute Plan: Patient appears to have overdosed on medications ARF Non oliguric increased UOP 4.8 L Cr better on Milrinone/Vasopressors may not need dialysis US mild hydronephrosis possible shock/urine retention may explain ARF Mg replaced follow BMP (2) Lactic acidosis ICD Codes: E87.2 - Acidosis Status: Acute Plan: He started on dialysis I will DC bicarbonate Possible sepsis the patient is given Zosyn and vancomycin (3) Cardiogenic shock ICD Codes: R57.0 - Cardiogenic shock Status: Acute Plan: Post heart catheterization which did not showed critical blockage EF 40% Cardiomyopathy Troponin 40 (4) Respiratory failure ICD Codes: J96.90 - Respiratory failure, unspecified, unspecified whether with hypoxia or hypercapnia Status: Acute Plan: Intubated Problem Qualifiers (1) Acute renal failure: Qualified Codes: N17.9 - Acute kidney failure, unspecified (2) Respiratory failure: Qualified Codes: J96.00 - Acute respiratory failure, unspecified whether with hypoxia or hypercapnia Aime Rousseau MD Jan 19, 2017 16:46
[2017-01-20] VITALS (19 sets, daily range): BP systolic 82–138; BP diastolic 46–83; PULSE 73–144; RESP 18–24; TEMP 96.9–101.2; O2SAT 96–99
[2017-01-20] MEDS: MEDIUM DOSE INSULIN NOVOLOG SUPPLEMENTAL SCALE SQ SCH ×4 (00:06→18:01)
[2017-01-20] MEDS: DOPamine INJ PREMIX 500 ML IV PRN (00:09)
[2017-01-20] MEDS: NOREPINEPHRINE-DEXTROSE DRIP 250 ML IV PRN ×6 (00:32→12:33)
[2017-01-20] MEDS: PIPERACIL-TAZO 2.25 GM PREMIX 50 ML IV SCH ×3 (01:38→18:01)
[2017-01-20] MEDS ORDERED: MIDAZOLAM HCL 5 MG/ML VIAL (1 ML) ONE (02:11)
[2017-01-20 02:43] LABS: AUTOMATED NEUTROPHIL # 15.5 TH/MM3 (1.8-7.7); BASOPHIL % 0.1 % (0.0-2.0); EOSINOPHIL # 0.1 TH/MM3 (0-0.4); EOSINOPHIL % 0.4 % (0.0-4.0); HEMATOCRIT 29.8 % (35.0-46.0); HEMO FLAGS DIFF FINAL; LYMPH % 7.9 % (9.0-44.0); LYMPHOCYTE # 1.5 TH/MM3 (1.0-4.8); MEAN CELL VOLUME 98.4 FL (80.0-100.0); MEAN CORPUSCULAR HEMOGLOBIN 34.3 PG (27.0-34.0); MEAN CORPUSCULAR HGB CONC 34.8 % (32.0-36.0); MONO % 9.4 % (0.0-8.0); NEUT % 82.2 % (16.0-70.0); PLATELET COUNT 144 TH/MM3 (150-450); RED BLOOD COUNT 3.03 MIL/MM3 (4.00-5.30); RED CELL DISTRIBUTION WIDTH 14.2 % (11.6-17.2); WHITE BLOOD COUNT 18.9 TH/MM3 (4.0-11.0)
[2017-01-20 02:58] LABS: ALT (GPT) 42 U/L (10-53); ANION GAP 13 MEQ/L (5-15); AST (GOT) 58 U/L (15-37); BICARBONATE 21.1 MEQ/L (21.0-32.0); BLOOD UREA NITROGEN 42 MG/DL (7-18); CHLORIDE 100 MEQ/L (98-107); GLOMERULAR FILTRATION RATE 10 ML/MIN (>89); SODIUM (NA) 134 MEQ/L (136-145)
[2017-01-20 03:01] LABS: ALKALINE PHOSPHATASE 92 U/L (45-117); POTASSIUM 2.9 MEQ/L (3.5-5.1); TOTAL BILIRUBIN ADULT 0.9 MG/DL (0.2-1.0)
[2017-01-20] MEDS: EPOPROSTENOL NEB SOLUTION 50 NG/KG/MIN 100 ML NEB SCH ×6 (03:12→19:00)
[2017-01-20] MEDS: CHLORHEXIDINE GLUCONATE 2 % 1 PACK (2 CLOTHS) TOP SCH (03:44)
[2017-01-20] MEDS: POTASSIUM CHLOR 40 MEQ PREMIX 100 ML IV SCH ×2 (04:04→07:42)
[2017-01-20] MEDS: fentaNYL DRIP 250 ML IV PRN ×2 (07:11→23:47)
[2017-01-20] MEDS ORDERED: Vancomycin Consult Pharmacy 1 EA OTHER SCH (07:30)
[2017-01-20] MEDS ORDERED: VANCOMYCIN INJ 1,000 MG in SODIUM CHLOR 0.9% 250 ML INJ 250 ML IV ONE (07:30)
[2017-01-20] MEDS: VASOPRESSIN INJ 40 UNITS in DEXTROSE 5% IN WATER 100ML INJ 98 ML IV SCH ×4 (07:36→21:53)
--- NOTE | 2017-01-20 07:47 | HHI.CCPN ---
Subjective Remarks/Hospital Course Hospital Course: 61-year-old female was brought in by EMT for altered mental status. She has a history of diabetes hypertension Xanax overdose in the past, she usually goes to [facility]. She had a Cardiac catheterization done there last year and she was told that she is got cardiomyopathy and she needs the bypass surgery however she didn't follow. Today when she was brought she was too lethargic and was intubated by ED attending for an airway protection. On presentation she is in cardiogenic shock, hypotensive on maximum dose of dopamine and Levophed. She is evaluated by title [address] Day was given a taken emergently to cardiac catheterization. She was also discussed by ED attending with Dr. Rousseau, nephrology who is aware of patient's elevated creatinine and emergent hemodialysis shortly after catheterization. 01/18 Additional documentation: Patient taken emergently to orthodontic laboratory technician. I was called to assist and evaluate patient in orthodontic laboratory technician. patient in shock on dopamine and levophed. LHC without evidence of CAD. LVgram suggestive of normal EF. LVEDP severely elevated ~38 mmHg. RHC with evidence of severe pulmonary hypertension, RVSP 77 mmHg. left and right heart cath suggestive of severe CHF exacerbation with preserved EF, and her critical illness may be secondary to cardiogenic shock. Discussed with Dr. Day, plan to place in CVICU with [place] in place and pursue volume removal, inotropic therapy with milrinone and inhaled flolan. Placed swan (see separate procedure note for details). CI 3.6, cvp 15, pcwp 25. svo2 55%. febrile to 101. repeat troponin went from 2 to 40. still very critically ill. in mixed shock. Subjective: 01/19: persists in cardiogenic shock. volume overload. dialyzed yesterday. now making urine, cr downtrending. remains on milrinone, dopamine, levophed. RHC numbers: HR 127. Art 116/61 (74). RAP 18. PAP 44/26 (33). PCWP 23. CO 6.0/ CI 3.1. SVR 696. PVR 1.6. 01/20: Patient remains in profound cardiogenic and septic shock. Currently on milrinone 0.3 g per KG per minute and dopamine 14 g per KG per minute and Levophed 22 mcg/m. MAP >70. SVR in 800s, PCWP 17. I have added stress dose steroids hydrocortisone 100 mg IV every 8 hours, patient is profoundly tachycardic I will add vasopressin and attempt weaning dopamine to DC. Add vancomycin for GPC 05/14. UO >8 L in 24 hours with 4 mg Bumex and 500 mg Diuril. Reviewed echo EF 35-40%, apical hypokinesis on my review. Most likely Takotsubo cardiomyopathy Objective Vital Signs Date Time Temp Pulse Resp B/P (MAP) Pulse Ox O2 Delivery O2 Flow Rate FiO2 01/20/17 05:32 144 112/69 (83) 88/68 (75) 01/20/17 04:31 99 40 01/20/17 03:19 100.0 24 01/18/17 05:47 Ventilator 01/18/17 03:59 2.00 Intake and Output 01/20/17 01/20/17 01/21/17 08:00 16:00 00:00 Intake Total 955 ml Output Total 4780 ml Balance -3825 ml Result Diagram: 01/20/1721401/20/17214 Objective Remarks GENERAL: Sedated and intubated obese female, in profound shock SKIN: Warm and dry. HEAD: Normocephalic. EYES: No scleral icterus. No injection or drainage. NECK: trachea midline. right SC TLC and left IJ Vascath in place, left SC cordis and swan sites look clean and dry, dressings intact. CARDIOVASCULAR: tachycardic rate, regular rhythm. sinus by tele. Systolic murmur in all areas. MAP 70 on Levophed, dopamine and milrinone RESPIRATORY: Breath sounds equal bilaterally. No accessory muscle use. GASTROINTESTINAL: Abdomen soft, non-tender, nondistended. MUSCULOSKELETAL: No cyanosis, or edema. NEURO EXAM: RASS -3. w/d to pain. Opens eyes to noxious stimuli extremities purposefully. Urinary Catheter: Yes Assessment to: Continue Vascular Central Line Catheter: Yes Assessment to: Continue A/P Assessment and Plan Assessment: 61yF with h/o cardiomyopathy, presented with hypoxia, respiratory distress and undifferentiated shock, now likely combination septic and cardiogenic shock. requiring inotropes and vasopressors. also requiring emergent hemodialysis. abx, cultures, pressors. UOP improving today, and may be able to use forced diuresis to optimize volume status. still grossly volume overloaded. remains on inotropes and vasopressors. NEURO: Toxic encephalopathy - Continue sedation due to hemodynamic instability. - Prop/fent for goal RASS -2. DC Propofol, start Versed - UDS + for bzd RESP: Acute hypoxic Respiratory failure - No weaning until neurologically and hemodynamically stable. becomes unstable with sedation vacation. - Vent bundle. DuoNeb q6 PRN - likely combination of pulmonary edema, could be ?atypical pneumonia. - continue vanc/zosyn for empiric abx coverage. Add Levaquin for atypical coverage CVS: Cardiogenic and septic shock Probable Takotsubo cardiomyopathy Troponin elevation due to Takotsubo cardiomyopathy Acute intravascular volume overload History of cardiomyopathy - 01/[address] Day, no acute obstruction - This could be Takotsubo cardiomyopathy (EF 35-40% on my review with apical WMA , normal coronaries) - Levophed and dopamine to keep MAP above 65 mmHg. Start vasopressin and attempt to wean to DC Dopamine - milrinone at 0.3 mcg/kg/min - Add stress dose steroids, IV albumin - continue PA catheter for 24 hours - trend cardiac output, trend lactates - UO >8L in 24 hours with diuretics. IV Albumin - Give 500 ml fluid bolus and monitor SV before/after - Received Bumex 4mg iv x 1 and diuril 500mg iv x 1 01/19 with 8 L fluid output - Maintain even fluid balance. - No further diuresis at this time - Cardiology Dr. Day - Echo reviewed personally EF 35-40% apical WMA, moderate MR - LHC 01/18 clean coronaries. : Severe metabolic acidosis- resolving. - Acute kidney injury and cardiogenic shock - History of metformin - Dr. Rousseau - Stat hemodialysis 01/18 - Strict I's and Os - UO 8.5 L in 24 hours with diuresis. GI: Transaminitis - Keep nothing by mouth, elevated liver enzymes due to shock ID: Septic shock - Continue Zosyn, and vancomycin pharmacy to dose, and Levaquin to cover for atypical pneumonia - Blood culture GPC, sputum and urine culture pending and urine culture pending - Check urine for Legionella and pneumococcal antigen - Stress dose steroids ENDO: Diabetes mellitus - Hold metformin due to above - Insulin sliding scale DVT GI prophylaxis - Heparin s/q - Pepcid Critical Care: The total critical care time was 76 minutes. Time to perform other separately billable procedures was not included in the critical care time. Patient is very critically ill and imaging studies including echo and cardiac catheterizations point to Takotsubo cardiomyopathy. Lo Granado MD Jan 20, 2017 07:47
[2017-01-20] MEDS ORDERED: HYDROCORTISONE SOD SUCCINATE 250 MG VIAL IV SCH (08:00)
[2017-01-20] MEDS ORDERED: LEVOFLOXACIN 750 MG PREMIX INJ 150 ML IV SCH (08:00)
--- NOTE | 2017-01-20 08:21 | RADRPT ---
EXAM DATE/TIME: 01/20/2017 07:58 [place] COMPARISON: CHEST SINGLE AP, January 18, 2017, 8:57. INDICATIONS : Respiratory distress. MEDICAL HISTORY : Hypertension. Diabetes mellitus type II. SURGICAL HISTORY : Vascath placement. ENCOUNTER: Subsequent ACUITY: 2 days PAIN SCORE: Non-responsive. LOCATION: Bilateral chest FINDINGS: Stable ETT, right central line, NGT with tip beyond the GE junction, left subclavian probable pulmona ry artery catheter with tip obscured but likely in the very proximal main pulmonary artery, and left IJ temporary dialysis catheter with tip in the proximal SVC. Improved aeration in the left lower lobe with mild bibasilar airspace disease. No significant pneumothorax. Cardiomediastinal contours are st able. Remainder of the exam is unchanged. CONCLUSION: 1. Stable tubes and lines, as above. 2. Improved aeration in the left lung with residual mild bibasilar airspace disease. Bentley Rodriguez MD on January 20, 2017 at 8:16 Board Certified Radiologist. This report was verified electronically.
[2017-01-20] MEDS: HYDROCORTISONE SOD SUCCINATE 100 MG VIAL IV SCH ×3 (08:26→23:48)
[2017-01-20] MEDS: ALBUMIN HUMAN 25% 25 GM/100 ML BAGP IV SCH ×3 (08:26→23:47)
[2017-01-20] MEDS: DOCUSATE SODIUM 50 MG/SENNA 8.6 MG TAB PO SCH ×2 (08:27→21:04)
[2017-01-20] MEDS: FAMOTIDINE 20 MG/2 ML VIAL IV PUSH SCH ×2 (08:27→21:05)
[2017-01-20] MEDS: SODIUM CHLORIDE 0.9% FLUSH 10 ML FLUSH SCH ×2 (08:27→21:54)
[2017-01-20] MEDS: PROPOFOL 1000 MG/100 ML INJ 100 ML IV PRN ×2 (08:36→21:00)
[2017-01-20] MEDS ORDERED: SODIUM CHLORID 0.9% 500 ML INJ 500 ML IV ONE (09:00)
[2017-01-20] MEDS: MIDAZOLAM 100 MG/100 ML INJ 100 ML IV PRN ×2 (10:36→21:53)
[2017-01-20 11:42] LABS: BLOOD GAS BASE EXCESS -7.4 mmol/L (-2-2); BLOOD GAS CARBOXYHEMOGLOBIN 1.7 % (0-4); BLOOD GAS HCO3 16 mmol/L (22-26); BLOOD GAS METHEMOGLOBIN 1.3 % (0-2); BLOOD GAS O2 HGB SATURATION 96 % (90-100); BLOOD GAS OXYGEN CONTENT 12.2 Vol % (12.0-20.0); BLOOD GAS PCO2 21 mmHg (38-42); BLOOD GAS PO2 116 mmHg (61-120); BLOOD GAS TOTAL HGB 8.9 G/DL (12.0-16.0); CRITICAL VALUE YES; OXYGEN DEVICE VENTILATOR; TEMP CORR TO 98.6
[2017-01-20 11:43] LABS: DRAW SITE ART LINE; FIO2 40 %; STAT NO; VENT SETTINGS PRVC24/600/+12
--- NOTE | 2017-01-20 12:29 | HHI.NPPN ---
Subjective History of Present Illness 61 year old female OD on prescription medications, intubated Additional Remarks on vent Objective Data Data 01/20/17 01/21/17 19:00 07:00 Intake Total 487 ml Balance 487 ml Intake IV Total 487 ml Vital Signs Date Time Temp Pulse Resp B/P (MAP) Pulse Ox O2 Delivery O2 Flow Rate FiO2 01/20/17 11:45 99 40 01/20/17 11:13 97 40 01/20/17 10:38 116 85/53 01/20/17 07:36 156 91/55 01/20/17 07:29 149 67/39 01/20/17 05:32 144 112/69 (83) 88/68 (75) 01/20/17 04:31 99 40 01/20/17 04:06 132 108/61 01/20/17 04:00 130 113/69 (84) 89/66 (74) 01/20/17 03:28 135 01/20/17 03:19 40 01/20/17 03:19 140 112/65 (81) 109/68 (82) 01/20/17 03:19 100.0 140 24 112/65 (81) 99 109/68 (82) 01/20/17 03:00 140 109/68 01/20/17 02:00 143 115/63 (80) 95/61 (72) 01/20/17 01:45 98 40 01/20/17 01:00 131 105/65 (78) 83/51 (62) 01/20/17 01:00 101.2 01/20/17 00:32 136 107/68 01/20/17 00:09 140 108/64 01/20/17 00:00 139 107/68 (81) 105/63 (77) 01/19/17 23:27 124 108/64 01/19/17 23:00 130 01/19/17 23:00 40 01/19/17 23:00 124 89/56 (67) 108/64 (79) 01/19/17 23:00 99.7 124 24 89/56 (67) 99 108/64 (79) 01/19/17 22:52 99 40 01/19/17 22:00 130 96/59 (71) 97/55 (69) 01/19/17 21:00 134 104/59 (74) 91/52 (65) 01/19/17 20:11 127 104/60 01/19/17 20:03 99 40 01/19/17 20:00 124 104/60 (75) 101/56 (71) 01/19/17 19:15 40 01/19/17 19:15 99.9 136 24 99 94/65 (75) 01/19/17 19:00 136 01/19/17 19:00 136 94/56 (69) 01/19/17 18:00 120 01/19/17 17:00 119 91/50 (64) 95/52 (66) 01/19/17 16:02 114 93/51 01/19/17 16:00 114 01/19/17 15:49 99 40 01/19/17 15:00 124 01/19/17 15:00 100.0 125 24 93/53 (66) 99 93/51 (65) 01/19/17 15:00 125 01/19/17 15:00 40 01/19/17 14:00 125 01/19/17 13:00 118 112/64 (80) 113/62 (79) 01/19/17 12:49 119 85/40 -: 01/20/17 0215 01/20/17 0215 Physical Exam General Appearance: Well Developed Neck Neck Exam: Neck Supple Pulmonary Resp Exam: Clear Bilaterally, Breath Sounds Equal Cardiology CV Exam: Regular, Normal Sinus Rhythm Gastrointestinal/Abdomen GI Exam: Soft, Non-Tender, Bowel Sounds Present Integumentary Skin Exam: Clear Extremeties Extremities Exam: No Edema Assessment/Plan Problem List: (1) Acute renal failure ICD Codes: N17.9 - Acute kidney failure, unspecified Status: Acute Plan: Patient appears to have overdosed on prescription medications ARF Non oliguric increased UOP doing better Cr declining K low been replaced recheck follow BMP may dc Vascath by tomorrow (2) Lactic acidosis ICD Codes: E87.2 - Acidosis Status: Acute Plan: He started on dialysis I will DC bicarbonate Possible sepsis the patient is given Zosyn and vancomycin (3) Cardiogenic shock ICD Codes: R57.0 - Cardiogenic shock Status: Acute Plan: Post heart catheterization which did not showed critical blockage EF 40% Cardiomyopathy Troponin 40 (4) Respiratory failure ICD Codes: J96.90 - Respiratory failure, unspecified, unspecified whether with hypoxia or hypercapnia Status: Acute Plan: Intubated Problem Qualifiers (1) Acute renal failure: Qualified Codes: N17.9 - Acute kidney failure, unspecified (2) Respiratory failure: Qualified Codes: J96.00 - Acute respiratory failure, unspecified whether with hypoxia or hypercapnia Aime Rousseau MD Jan 20, 2017 12:29
[2017-01-20 13:32] LABS: POTASSIUM 3.2 MEQ/L (3.5-5.1)
[2017-01-20] MEDS: MILRINONE INJ 20 MG in SODIUM CHLORIDE 0.9% INJ 80 ML IV SCH (13:35)
[2017-01-20 14:50] LABS: AST (GOT) 57 U/L (15-37); BLOOD UREA NITROGEN 39 MG/DL (7-18); CHLORIDE 99 MEQ/L (98-107); GLOMERULAR FILTRATION RATE 12 ML/MIN (>89); SODIUM (NA) 132 MEQ/L (136-145)
[2017-01-20 14:52] LABS: ANION GAP 15 MEQ/L (5-15); BICARBONATE 18.5 MEQ/L (21.0-32.0)
[2017-01-20 14:53] LABS: ALKALINE PHOSPHATASE 98 U/L (45-117); TOTAL BILIRUBIN ADULT 1.3 MG/DL (0.2-1.0)
[2017-01-20 15:05] LABS: ALT (GPT) 40 U/L (10-53)
[2017-01-20] MEDS ORDERED: POTASSIUM CHLOR 40 MEQ PREMIX 100 ML IV ONE (15:45)
[2017-01-20] MEDS ORDERED: EPOPROSTENOL NEB SOLUTION 40 NG/KG/MIN 100 ML NEB ONE ×2 (21:00)
[2017-01-21] VITALS (21 sets, daily range): BP systolic 83–145; BP diastolic 49–82; PULSE 6–92; RESP 18; TEMP 97–97.5; O2SAT 92–99
[2017-01-21] MEDS: MEDIUM DOSE INSULIN NOVOLOG SUPPLEMENTAL SCALE SQ SCH ×4 (00:39→17:55)
[2017-01-21] MEDS: PIPERACIL-TAZO 2.25 GM PREMIX 50 ML IV SCH ×3 (02:11→17:55)
[2017-01-21] MEDS: NOREPINEPHRINE-DEXTROSE DRIP 250 ML IV PRN ×3 (02:12→18:40)
[2017-01-21] MEDS: PROPOFOL 1000 MG/100 ML INJ 100 ML IV PRN ×3 (02:13→17:22)
[2017-01-21] MEDS: CHLORHEXIDINE GLUCONATE 2 % 1 PACK (2 CLOTHS) TOP SCH (04:00)
[2017-01-21] MEDS: MILRINONE INJ 20 MG in SODIUM CHLORIDE 0.9% INJ 80 ML IV SCH ×2 (04:21→15:32)
[2017-01-21] MEDS ORDERED: EPOPROSTENOL NEB SOLUTION 30 NG/KG/MIN 100 ML NEB ONE ×2 (05:00)
[2017-01-21 06:05] LABS: MEAN CELL VOLUME 100.7 FL (80.0-100.0); MEAN CORPUSCULAR HEMOGLOBIN 34.2 PG (27.0-34.0); PLATELET COUNT 82 TH/MM3 (150-450); RED BLOOD COUNT 2.19 MIL/MM3 (4.00-5.30); RED CELL DISTRIBUTION WIDTH 14.2 % (11.6-17.2); WHITE BLOOD COUNT 10.6 TH/MM3 (4.0-11.0)
[2017-01-21 06:29] LABS: ALT (GPT) 26 U/L (10-53); ANION GAP 12 MEQ/L (5-15); AST (GOT) 33 U/L (15-37); BICARBONATE 20.6 MEQ/L (21.0-32.0); BLOOD UREA NITROGEN 45 MG/DL (7-18); CHLORIDE 101 MEQ/L (98-107); GLOMERULAR FILTRATION RATE 12 ML/MIN (>89); POTASSIUM 3.3 MEQ/L (3.5-5.1); SODIUM (NA) 134 MEQ/L (136-145)
[2017-01-21 06:31] LABS: ALKALINE PHOSPHATASE 79 U/L (45-117); TOTAL BILIRUBIN ADULT 0.8 MG/DL (0.2-1.0)
[2017-01-21 06:32] LABS: REVIEW FLAG FINAL
--- NOTE | 2017-01-21 07:02 | RADRPT ---
EXAM DATE/TIME: 01/21/2017 06:46 [place] COMPARISON: CHEST SINGLE AP, January 20, 2017, 7:58. INDICATIONS : Shortness of breath. MEDICAL HISTORY : Hypertension. Diabetes mellitus type II. SURGICAL HISTORY : Vascath placement. ENCOUNTER: Subsequent ACUITY: 3 days PAIN SCORE: 0/10 LOCATION: Bilateral chest FINDINGS: Diffuse vascular congestion has developed. There is increasing airspace disease in the left base. Heart is mildly enlarged. Pre-existing support devices are in stable position. CONCLUSION: 1. Increasing congestion and left basilar airspace disease. 2. Stable support devices. Felipe Javier MD on January 21, 2017 at 6:59 Board Certified Radiologist. This report was verified electronically.
--- NOTE | 2017-01-21 07:56 | HHI.CCPN ---
Subjective Remarks/Hospital Course Hospital Course: 61-year-old female was brought in by EMT for altered mental status. She has a history of diabetes hypertension Xanax overdose in the past, she usually goes to [facility]. She had a Cardiac catheterization done there last year and she was told that she is got cardiomyopathy and she needs the bypass surgery however she didn't follow. Today when she was brought she was too lethargic and was intubated by ED attending for an airway protection. On presentation she is in cardiogenic shock, hypotensive on maximum dose of dopamine and Levophed. She is evaluated by research and development scientist Dr. Day was given a taken emergently to cardiac catheterization. She was also discussed by ED attending with Dr. Rousseau, nephrology who is aware of patient's elevated creatinine and emergent hemodialysis shortly after catheterization. 01/18 Additional documentation: Patient taken emergently to produce laborer. I was called to assist and evaluate patient in produce laborer. patient in shock on dopamine and levophed. LHC without evidence of CAD. LVgram suggestive of normal EF. LVEDP severely elevated ~38 mmHg. RHC with evidence of severe pulmonary hypertension, RVSP 77 mmHg. left and right heart cath suggestive of severe CHF exacerbation with preserved EF, and her critical illness may be secondary to cardiogenic shock. Discussed with Dr. Day, plan to place in CVICU with [place] in place and pursue volume removal, inotropic therapy with milrinone and inhaled flolan. Placed swan (see separate procedure note for details). CI 3.6, cvp 15, pcwp 25. svo2 55%. febrile to 101. repeat troponin went from 2 to 40. still very critically ill. in mixed shock. Subjective: 01/19: persists in cardiogenic shock. volume overload. dialyzed yesterday. now making urine, cr downtrending. remains on milrinone, dopamine, levophed. RHC numbers: HR 127. Art 116/61 (74). RAP 18. PAP 44/26 (33). PCWP 23. CO 6.0/ CI 3.1. SVR 696. PVR 1.6. 01/20: Patient remains in profound cardiogenic and septic shock. Currently on milrinone 0.3 g per KG per minute and dopamine 14 g per KG per minute and Levophed 22 mcg/m. MAP >70. SVR in 800s, PCWP 17. I have added stress dose steroids hydrocortisone 100 mg IV every 8 hours, patient is profoundly tachycardic I will add vasopressin and attempt weaning dopamine to DC. Add vancomycin for GPC 05/14. UO >8 L in 24 hours with 4 mg Bumex and 500 mg Diuril. Reviewed echo EF 35-40%, apical hypokinesis on my review. Most likely Takotsubo cardiomyopathy 01/21: Patient still critically ill but shows some signs of improvement. Levophed is now down to 7 mcg/m. Remains on vasopressin 0.04 international units, milrinone at 0.3 g per KG per minute. Urine output more than 5 L, creat remains at 4.PAC numbers. PA mean 23-26. CO 3.7-6.7/CI2-3. SVR 1073. Hemoglobin has dropped to 7.5 platelet count 82. Transfuse 1 unit PRBC followed by 1 mg of Bumex IV. Objective Vital Signs Date Time Temp Pulse Resp B/P (MAP) Pulse Ox O2 Delivery O2 Flow Rate FiO2 01/21/17 05:00 68 100/62 01/21/17 04:44 96 40 01/21/17 03:00 97.1 18 01/18/17 05:47 Ventilator 01/18/17 03:59 2.00 Intake and Output 01/21/17 01/21/17 01/22/17 08:00 16:00 00:00 Intake Total 2838 ml Output Total 1300 ml Balance 1538 ml Result Diagram: 01/21/17 0525 01/21/17 0525 Other Results Microbiology Date/Time Source Procedure Growth Status 01/20/17 12:00 Urine Catheterized Urine Legionella Antigen - Final PRESUMPTIVE NEGATIVE FOR LEGIONELLA P... Complete 01/20/17 12:00 Urine Catheterized Urine Streptococcus pneumoniae Antigen (M - Final PRESUMPTIVE NEGATIVE FOR STREPTOCOCCU... Complete Laboratory Tests Test 01/20/17 11:34 Blood Gas Puncture Site ART LINE Blood Gas Patient Temperature 98.6 Blood Gas HCO3 16 mmol/L (22-26) Blood Gas Base Excess -7.4 mmol/L (-2-2) Blood Gas Oxygen Saturation 96 % (90-100) Arterial Blood pH 7.48 (7.380-7.420) Arterial Blood Partial Pressure CO2 21 mmHg (38-42) Arterial Blood Partial Pressure O2 116 mmHg (61-120) Arterial Blood Oxygen Content 12.2 Vol % (12.0-20.0) Arterial Blood Carboxyhemoglobin 1.7 % (0-4) Arterial Blood Methemoglobin 1.3 % (0-2) Blood Gas Hemoglobin 8.9 G/DL (12.0-16.0) Oxygen Delivery Device VENTILATOR Blood Gas Ventilator Setting PRVC24/600/+12 Blood Gas Inspired Oxygen 40 % Objective Remarks Infusions: Levophed Vasopressin Milrinone Inhaled Flolan tapering dose Propofol Versed Fentanyl GENERAL: Sedated and intubated obese female, in shock SKIN: Warm and dry. HEAD: Normocephalic. EYES: No scleral icterus. No injection or drainage. NECK: trachea midline. right SC TLC and left IJ Vascath in place, left SC cordis and PAC look clean and dry, dressings intact. CARDIOVASCULAR: HR 70 /min. sinus by tele. Systolic murmur in all areas. MAP 65 -70 on Levophed, vasopressin and milrinone RESPIRATORY: Breath sounds equal bilaterally. Clear to auscultation anteriorly GASTROINTESTINAL: Abdomen soft, non-tender, nondistended. MUSCULOSKELETAL: No cyanosis, or edema. NEURO EXAM: RASS -3. w/d to pain. Opens eyes to noxious stimuli, moves extremities purposefully. A/P Assessment and Plan Assessment: 61yF with h/o cardiomyopathy, presented with hypoxia, respiratory distress and combination septic and cardiogenic shock. Clinical picture consistent with Takotsubo cardiomyopathy. Requiring inotropes and vasopressors, slowly decreasing requirements of vasopressors. Required emergent hemodialysis. abx, cultures, pressors. UOP improving NEURO: Toxic encephalopathy - Continue sedation due to hemodynamic instability. - Prop/fent/Versed for goal RASS -3. - UDS + for bzd RESP: Acute hypoxic Respiratory failure Probable pneumonia/MSSA in sputum - No weaning until neurologically and hemodynamically stable. becomes unstable with sedation lightening - Vent bundle. DuoNeb q6 PRN - Chest x-ray today shows some worsening in pulmonary edema - continue vanc/zosyn for empiric abx coverage. Added Levaquin for atypical coverage - Wean to DC Flolan per protocol CVS: Takotsubo cardiomyopathy Cardiogenic and septic shock Troponin elevation due to Takotsubo cardiomyopathy Acute intravascular volume overload History of hypertrophic cardiomyopathy - 01/[address] Day, no acute obstruction - Clinical picture echo and cardiac catheterization findings consistent with Takotsubo cardiomyopathy (EF 35-40% on my review with apical WMA, normal coronaries) - Levophed and vasopressin to keep MAP above 65 mmHg. Milrinone at 0.3 mcg/kg/ min - Stress dose steroids, IV albumin - DC PA catheter today. Numbers as above - trend cardiac output, trend lactates - UO >5L in 24 hours with diuretics. IV Albumin. - Give 1mg Bumex after PRBC transfusion - Received Bumex 4mg iv x 1 and diuril 500mg iv x 1 01/19 with 8 L fluid output - Maintain even fluid balance. - Cardiology Dr. Day - Echo reviewed personally EF 35-40% apical WMA, moderate MR - LHC 01/18 clean coronaries. : Severe metabolic acidosis- resolving. - Acute kidney injury from shock - History of metformin - Dr. Rousseau. Stat hemodialysis 01/18, currently nonoliguric - Strict I's and Os - UO 5 L in 24 hours GI: Transaminitis - Keep nothing by mouth, elevated liver enzymes due to shock - Start tube feeds once pressor requirement is improved ID: Septic shock MSSA pneumonia GPC in blood - Continue Zosyn, and vancomycin pharmacy to dose, and Levaquin - Blood culture GPC / bottles, sputum MSSA and urine culture -negative to date - Neg urine for Legionella and pneumococcal antigen - Stress dose steroids ENDO: Diabetes mellitus - Hold metformin due to above - Insulin sliding scale, Levemir 10 units every 12 DVT GI prophylaxis - Heparin s/q - Pepcid Critical Care: The total critical care time was 80 minutes. Time to perform other separately billable procedures was not included in the critical care time. Lo Granado MD Jan 21, 2017 07:56
[2017-01-21] MEDS ORDERED: BUMETANIDE INJ 1 MG/4 ML VIAL IV PUSH ONE (08:00)
[2017-01-21] MEDS ORDERED: POTASSIUM CHLOR 40 MEQ PREMIX 100 ML IV ONE (08:00)
[2017-01-21] MEDS: DOCUSATE SODIUM 50 MG/SENNA 8.6 MG TAB PO SCH ×2 (08:13→21:53)
[2017-01-21] MEDS: FAMOTIDINE 20 MG/2 ML VIAL IV PUSH SCH ×2 (08:13→21:53)
[2017-01-21] MEDS: HYDROCORTISONE SOD SUCCINATE 100 MG VIAL IV SCH ×3 (08:13→23:46)
[2017-01-21] MEDS: SODIUM CHLORIDE 0.9% FLUSH 10 ML FLUSH SCH ×2 (08:14→21:53)
[2017-01-21 08:22] LABS: BLOOD GAS BASE EXCESS -6.1 mmol/L (-2-2); BLOOD GAS CARBOXYHEMOGLOBIN 1.5 % (0-4); BLOOD GAS HCO3 19 mmol/L (22-26); BLOOD GAS METHEMOGLOBIN 1.2 % (0-2); BLOOD GAS O2 HGB SATURATION 95 % (90-100); BLOOD GAS OXYGEN CONTENT 12.1 Vol % (12.0-20.0); BLOOD GAS PCO2 35 mmHg (38-42); BLOOD GAS PO2 111 mmHg (61-120); BLOOD GAS TOTAL HGB 8.9 G/DL (12.0-16.0); CRITICAL VALUE NO; TEMP CORR TO 98.6
[2017-01-21 08:23] LABS: DRAW SITE ART LINE; FIO2 40 %; OXYGEN DEVICE VENTILATOR; STAT NO; VENT SETTINGS PRVC20/500/+5PEEP
[2017-01-21] MEDS: INSULIN DETEMIR 100 UNITS/ML VIAL SQ SCH ×2 (08:46→21:00)
[2017-01-21] MEDS ORDERED: VANCOMYCIN 1,000 MG/NS 250 ML IV ONE ×2 (10:00)
[2017-01-21] MEDS: MIDAZOLAM 100 MG/100 ML INJ 100 ML IV PRN ×2 (10:40→23:45)
[2017-01-21] MEDS: fentaNYL DRIP 250 ML IV PRN ×2 (11:40→23:46)
[2017-01-21] MEDS ORDERED: EPOPROSTENOL NEB SOLUTION 20 NG/KG/MIN 100 ML NEB ONE ×2 (13:00)
--- NOTE | 2017-01-21 13:38 | HHI.NPPN ---
Subjective History of Present Illness 61 year old female OD on prescription medications, intubated Additional Remarks on vent Objective Data Data 01/21/17 01/22/17 19:00 07:00 Intake Total 744 ml Balance 744 ml Intake IV Total 734 ml Blood Product IV Normal Saline Flush 10 ml Vital Signs Date Time Temp Pulse Resp B/P (MAP) Pulse Ox O2 Delivery O2 Flow Rate FiO2 01/21/17 11:29 40 01/21/17 11:29 97.4 69 18 112/58 (76) 95 98/61 (73) 01/21/17 11:29 69 01/21/17 11:29 69 112/58 (76) 98/61 (73) 01/21/17 11:28 97.3 69 18 111/58 95 01/21/17 11:07 97.4 69 18 117/64 94 01/21/17 10:45 97.3 70 18 119/65 95 01/21/17 10:29 97.4 71 18 101/62 92 01/21/17 09:34 77 102/65 01/21/17 08:52 74 97/50 01/21/17 08:25 97 40 01/21/17 08:00 97.5 70 18 98/50 (66) 96 83/49 (60) 01/21/17 08:00 40 01/21/17 08:00 98/50 (66) 83/49 (60) 01/21/17 08:00 68 01/21/17 05:00 68 100/62 01/21/17 05:00 68 135/81 01/21/17 04:44 96 40 01/21/17 04:21 75 130/74 01/21/17 04:00 74 128/75 (92) 121/72 (88) 01/21/17 04:00 74 128/75 01/21/17 03:00 97.1 73 18 115/63 (80) 93 120/73 (89) 01/21/17 03:00 72 01/21/17 03:00 40 01/21/17 03:00 74 114/68 01/21/17 02:12 74 114/68 01/21/17 01:23 94 40 01/21/17 00:00 73 109/68 01/20/17 23:00 73 01/20/17 23:00 40 01/20/17 23:00 97.6 74 18 126/81 (96) 97 118/75 (89) 01/20/17 23:00 74 118/75 01/20/17 23:00 74 126/81 (96) 118/75 (89) 01/20/17 22:29 98 40 01/20/17 21:53 75 110/69 01/20/17 21:00 75 110/69 01/20/17 20:16 98 40 01/20/17 19:01 75 110/64 01/20/17 19:01 75 110/64 01/20/17 19:01 75 110/64 01/20/17 19:00 40 01/20/17 19:00 75 01/20/17 19:00 73 110/64 (79) 98/60 (73) 01/20/17 19:00 97.1 82 21 94/50 (65) 99 94/60 (71) 01/20/17 18:01 76 113/69 01/20/17 18:01 76 113/69 01/20/17 18:01 76 113/69 01/20/17 16:29 99 40 01/20/17 16:22 80 97/64 01/20/17 15:00 102/58 (73) 83/53 (63) 01/20/17 15:00 40 01/20/17 15:00 94 01/20/17 15:00 96.9 94 20 102/58 (73) 98 83/53 (63) -: 01/21/17 0525 01/21/17 0525 Physical Exam General Appearance: Well Developed Neck Neck Exam: Neck Supple Pulmonary Resp Exam: Clear Bilaterally, Breath Sounds Equal Cardiology CV Exam: Regular, Normal Sinus Rhythm Gastrointestinal/Abdomen GI Exam: Soft, Non-Tender, Bowel Sounds Present Integumentary Skin Exam: Clear Extremeties Extremities Exam: No Edema Assessment/Plan Problem List: (1) Acute renal failure ICD Codes: N17.9 - Acute kidney failure, unspecified Status: Acute Plan: Patient appears to have overdosed on prescription medications ARF Non oliguric increased UOP doing better Cr declining slowly K low replace and may five K as on Bumex may wait to get Vascath out as BP low getting PRBC (2) Lactic acidosis ICD Codes: E87.2 - Acidosis Status: Acute Plan: (3) Cardiogenic shock ICD Codes: R57.0 - Cardiogenic shock Status: Acute Plan: Post heart catheterization which did not showed critical blockage EF 40% Cardiomyopathy Troponin 40 (4) Respiratory failure ICD Codes: J96.90 - Respiratory failure, unspecified, unspecified whether with hypoxia or hypercapnia Status: Acute Plan: Intubated Problem Qualifiers (1) Acute renal failure: Qualified Codes: N17.9 - Acute kidney failure, unspecified (2) Respiratory failure: Qualified Codes: J96.00 - Acute respiratory failure, unspecified whether with hypoxia or hypercapnia Aime Rousseau MD Jan 21, 2017 13:38
[2017-01-21] MEDS ORDERED: POTASSIUM CHLOR 20 MEQ PREMIX 100 ML IV ONE (13:45)
--- NOTE | 2017-01-21 14:04 | ECHRPT ---
Indication: Assess EF CONCLUSIONS Normal left ventricular size. Wall thickness is normal. The left ventricular systolic function is moderately reduced with an estimated ejection fraction in the range of 40-45%. There is severe hypokinesis or akinesis of the anteroapical wall. [id number] mitral valve regurgitation. Moderate to marked mitral valve annular calcification. BP: / HR: 71 Rhythm: Sinus MEASUREMENTS (Male / Female) Normal Values Technical Quality:Good 2D ECHO LV Diastolic Diameter PLAX 4.9 cm 4.2 - 5.9 / 3.9 - 5.3 cm LV Systolic Diameter PLAX 4.4 cm IVS Diastolic Thickness 1.0 cm 0.6 - 1.0 / 0.6 - 0.9 cm LVPW Diastolic Thickness 1.0 cm 0.6 - 1.0 / 0.6 - 0.9 cm LV Relative Wall Thickness 0.4 LV Ejection Fraction MOD BP 35.9 % >= 55 % LV Cardiac Index MOD BP 1224.8 cm/minm LV Ejection Fraction MOD 4C 39.1 % LV Cardiac Index MOD 4C 1336.1 cm/minm LV Ejection Fraction 4C AL 38.0 % LV Cardiac Index 4C AL 1323.9 cm/minm LV Ejection Fraction MOD 2C 34.1 % LV Cardiac Index MOD 2C 1113.5 cm/minm LV Ejection Fraction 2C AL 35.1 % LV Cardiac Index 2C AL 1213.7 cm/minm DOPPLER MV Peak Velocity 153.0 cm/s MV Peak Gradient 9.4 mmHg MV Mean Velocity 90.4 cm/s MV Mean Gradient 4.0 mmHg MV Area PHT 2.4 cm MR Peak Velocity 521.5 cm/s MR Peak Gradient 108.8 mmHg FINDINGS LEFT VENTRICLE Normal left ventricular size. Wall thickness is normal. The left ventricular systolic function is moderately reduced with an estimated ejection fraction in the range of 40-45%. There is severe hypokinesis or akinesis of the anteroapical wall. RIGHT VENTRICLE Normal right ventricular size and systolic function. LEFT ATRIUM The left atrial size is normal. RIGHT ATRIUM The right atrial size is normal. ATRIAL SEPTUM Normal atrial septal thickness without atrial level shunting by limited color doppler interrogation. AORTA The aortic root and proximal ascending aorta are normal in size on limited imaging. MITRAL VALVE [id number] mitral valve regurgitation. Moderate to marked mitral valve annular calcification. AORTIC VALVE Trileaflet aortic valve. No aortic valve stenosis or regurgitation. TRICUSPID VALVE Structurally normal tricuspid valve. No tricuspid valve stenosis or regurgitation. PULMONARY VALVE The pulmonary valve is not well visualized. VESSELS The inferior vena cava is normal in size. PERICARDIUM No pericardial effusion. Rene Butt MD (Electronically Signed) Final Date:21 January 2017 14:04
--- NOTE | 2017-01-21 14:12 | PD.CARD.PN ---
Subjective Subjective Remarks Overnight events noted Objective Medications Current Medications Medications (Trade) Dose Ordered Sig/Rashi Route Start Time Stop Time Status Last Admin (Brethine Inj) 1 mg UNSCH PRN SQ 01/18/17 04:45 (NS Flush) 2 ml UNSCH PRN .XX 01/18/17 05:30 (NS Flush) 2 ml BID .XX 01/18/17 09:00 01/21/17 08:14 (Tylenol) 650 mg Q6H PRN PO 01/18/17 05:30 01/20/17 01:37 (Pepcid Inj) 10 mg Q12HR IV PUSH 01/18/17 09:00 01/21/17 08:13 (Zofran Inj) 4 mg Q6H PRN IV PUSH 01/18/17 05:30 (Duoneb Neb) 1 ampule Q2HR NEB PRN INH 01/18/17 05:30 Miscellaneous Information 1 Q361D XX 01/18/17 05:30 (Chlorhexidine 2% Cloth) 3 pack Taper DAILY@04 TOP 01/19/17 04:00 01/15/18 03:59 01/21/17 04:00 (Chlorhexidine 2% Cloth) 3 pack UNSCH PRN TOP 01/18/17 05:30 (Mali-Colace) 1 tab BID PO 01/18/17 09:00 01/21/17 08:13 (Senokot) 17.2 mg Q12H PRN PO 01/18/17 05:30 (Dulcolax Supp) 10 mg DAILY PRN RECTAL 01/18/17 05:30 (Lactulose Liq) 30 ml DAILY PRN PO 01/18/17 05:30 Fentanyl Citrate 250 ml @ 5 mls/hr TITRATE PRN IV 01/18/17 05:30 01/21/17 11:40 Sodium Chloride 1,000 ml @ 0 mls/hr Q0M PRN OTHER 01/18/17 06:05 01/18/17 12:18 (Heparin Inj) 8,000 units UNSCH PRN IVF 01/18/17 06:15 Sodium Chloride 1,000 ml @ 200 mls/hr Q5H PRN IV 01/18/17 06:05 Sodium Chloride 1,000 ml @ 0 mls/hr Q0M PRN OTHER 01/18/17 06:05 (Mannitol Inj) 12.5 gm UNSCH PRN IV 01/18/17 06:15 (Albumin 25% Inj) 25 gm UNSCH PRN IV 01/18/17 06:15 (NS Flush) 5 ml UNSCH PRN IV FLUSH 01/18/17 06:15 01/18/17 12:19 (Heparin Inj) UNSCH PRN .XX 01/18/17 06:15 01/18/17 12:20 (Gentamicin (Dialysis) Inj) 20 mg UNSCH PRN IV 01/18/17 06:15 01/18/17 12:19 (Zofran Inj) 4 mg UNSCH PRN IV 01/18/17 06:15 (Tylenol) 650 mg UNSCH PRN PO 01/18/17 06:15 (Gelfoam 12 Mm/7 Mm Top) 1 foam UNSCH PRN TOP 01/18/17 06:15 (Atropine Inj) 0.5 mg UNSCH PRN IV PUSH 01/18/17 07:45 (Zofran Inj) 4 mg Q4H PRN IV PUSH 01/18/17 07:45 Milrinone Lactate 20 mg/Sodium Chloride 100 ml @ 6 mls/hr [id number] IV 01/18/17 07:48 01/21/17 04:21 Piperacillin Sod/ Tazobactam Sod 50 ml @ 100 mls/hr Q8H IV 01/18/17 18:00 01/21/17 09:34 (D50w (Vial) Inj) 50 ml UNSCH PRN IV PUSH 01/18/17 18:00 (Glucagon Inj) 1 mg UNSCH PRN OTHER 01/18/17 18:00 (NovoLOG SUPPLEMENTAL SCALE) 1 Q6HR SQ 01/18/17 18:00 01/21/17 11:26 Norepinephrine Bitartrate 250 ml @ 7.5 mls/hr TITRATE PRN IV 01/20/17 04:00 01/21/17 08:52 Vasopressin 40 units/Dextrose 100 ml @ 4.5 mls/hr [id number] IV 01/20/17 07:16 01/20/17 21:53 Midazolam HCl 100 ml @ 2 mls/hr TITRATE PRN IV 01/20/17 07:30 01/21/17 10:40 Pharmacy Profile Note 0 ml @ 0 mls/hr UNSCH OTHER 01/20/17 07:30 Levofloxacin/ Dextrose 150 ml @ 100 mls/hr Q48H IV 01/20/17 08:00 01/20/17 08:26 (SoluCORTEF INJ) 100 mg Q8H IV 01/20/17 08:00 01/21/17 08:13 Epoprostenol Sodium 52.5 ml/ Sodium Chloride 100 ml @ 8 mls/hr ONCE ONCE NEB 01/21/17 05:00 01/21/17 17:29 01/21/17 07:12 Epoprostenol Sodium 35 ml/ Sodium Chloride 100 ml @ 8 mls/hr ONCE ONCE NEB 01/21/17 13:00 01/22/17 01:29 Epoprostenol Sodium 17.5 ml/ Sodium Chloride 100 ml @ 8 mls/hr ONCE ONCE NEB 01/21/17 21:00 01/22/17 09:29 Propofol 100 ml @ 2.349 mls/ hr TITRATE PRN IV 01/20/17 20:30 01/21/17 02:13 (Levemir Inj) 10 units Q12HR SQ 01/21/17 09:00 01/21/17 08:46 Potassium Chloride 100 ml @ 50 mls/hr BOLUS ONCE IV 01/21/17 13:45 01/21/17 15:44 UNV (Effer-K Eff) 25 meq DAILY PO 01/22/17 09:00 UNV Vital Signs / I&O Vital Signs Date Time Temp Pulse Resp B/P (MAP) Pulse Ox O2 Delivery O2 Flow Rate FiO2 01/21/17 14:02 99 40 01/21/17 11:29 40 01/21/17 11:29 97.4 69 18 112/58 (76) 95 98/61 (73) 01/21/17 11:29 69 01/21/17 11:29 69 112/58 (76) 98/61 (73) 01/21/17 11:28 97.3 69 18 111/58 95 01/21/17 11:07 97.4 69 18 117/64 94 01/21/17 10:45 97.3 70 18 119/65 95 01/21/17 10:29 97.4 71 18 101/62 92 01/21/17 09:34 77 102/65 01/21/17 08:52 74 97/50 01/21/17 08:25 97 40 01/21/17 08:00 97.5 70 18 98/50 (66) 96 83/49 (60) 01/21/17 08:00 40 01/21/17 08:00 98/50 (66) 83/49 (60) 01/21/17 08:00 68 01/21/17 05:00 68 100/62 01/21/17 05:00 68 135/81 01/21/17 04:44 96 40 01/21/17 04:21 75 130/74 01/21/17 04:00 74 128/75 (92) 121/72 (88) 01/21/17 04:00 74 128/75 01/21/17 03:00 97.1 73 18 115/63 (80) 93 120/73 (89) 01/21/17 03:00 72 01/21/17 03:00 40 01/21/17 03:00 74 114/68 01/21/17 02:12 74 114/68 01/21/17 01:23 94 40 01/21/17 00:00 73 109/68 01/20/17 23:00 73 01/20/17 23:00 40 01/20/17 23:00 97.6 74 18 126/81 (96) 97 118/75 (89) 01/20/17 23:00 74 118/75 01/20/17 23:00 74 126/81 (96) 118/75 (89) 01/20/17 22:29 98 40 01/20/17 21:53 75 110/69 01/20/17 21:00 75 110/69 01/20/17 20:16 98 40 01/20/17 19:01 75 110/64 01/20/17 19:01 75 110/64 01/20/17 19:01 75 110/64 01/20/17 19:00 40 01/20/17 19:00 75 01/20/17 19:00 73 110/64 (79) 98/60 (73) 01/20/17 19:00 97.1 82 21 94/50 (65) 99 94/60 (71) 01/20/17 18:01 76 113/69 01/20/17 18:01 76 113/69 01/20/17 18:01 76 113/69 9/12/17 16:29 99 40 01/20/17 16:22 80 97/64 01/20/17 15:00 102/58 (73) 83/53 (63) 01/20/17 15:00 40 01/20/17 15:00 94 01/20/17 15:00 96.9 94 20 102/58 (73) 98 83/53 (63) I/O 01/20/17 01/20/17 01/20/17 01/21/17 01/21/17 01/21/17 07:00 15:00 23:00 07:00 15:00 23:00 Intake Total 955 ml 2235 ml 447 ml 2838 ml 744 ml Output Total 4780 ml 4050 ml 1300 ml Balance -3825 ml 2235 ml -3603 ml 1538 ml 744 ml Intake IV Total 955 ml 2235 ml 447 ml 2738 ml 734 ml Albumin 100 ml Blood Product IV Normal Saline Flush 10 ml Output Urine Total 4780 ml 4050 ml 1200 ml Gastric Drainage Total 100 ml # Bowel Movements 0 0 0 Physical Exam GENERAL: Sedated, intubated, critically ill SKIN: Warm and dry. HEAD: Normocephalic. EYES: No scleral icterus. No injection or drainage. NECK: Supple, trachea midline. No JVD or lymphadenopathy. CARDIOVASCULAR: Regular rate and rhythm without murmurs, gallops, or rubs. RESPIRATORY: Breath sounds equal bilaterally. No accessory muscle use. GASTROINTESTINAL: Abdomen soft, non-tender, nondistended. EXTREMITIES: No cyanosis, or edema. Laboratory Laboratory Tests Test 01/21/17 05:25 01/21/17 08:15 White Blood Count 10.6 TH/MM3 Red Blood Count 2.19 MIL/MM3 Hemoglobin 7.5 GM/DL Hematocrit 22.0 % Mean Corpuscular Volume 100.7 FL Mean Corpuscular Hemoglobin 34.2 PG Mean Corpuscular Hemoglobin Concent 34.0 % Red Cell Distribution Width 14.2 % Platelet Count 82 TH/MM3 Mean Platelet Volume 8.7 FL Blood Urea Nitrogen 45 MG/DL Creatinine 3.95 MG/DL Random Glucose 302 MG/DL Total Protein 5.8 GM/DL Albumin 2.9 GM/DL Calcium Level 7.8 MG/DL Alkaline Phosphatase 79 U/L Aspartate Amino Transf (AST/SGOT) 33 U/L Alanine Aminotransferase (ALT/SGPT) 26 U/L Total Bilirubin 0.8 MG/DL Sodium Level 134 MEQ/L Potassium Level 3.3 MEQ/L Chloride Level 101 MEQ/L Carbon Dioxide Level 20.6 MEQ/L Anion Gap 12 MEQ/L Estimat Glomerular Filtration Rate 12 ML/MIN Random Vancomycin Level 13.3 COMMENT Blood Gas Puncture Site ART LINE Blood Gas Patient Temperature 98.6 Blood Gas HCO3 19 mmol/L Blood Gas Base Excess -6.1 mmol/L Blood Gas Oxygen Saturation 95 % Arterial Blood pH 7.34 Arterial Blood Partial Pressure CO2 35 mmHg Arterial Blood Partial Pressure O2 111 mmHg Arterial Blood Oxygen Content 12.1 Vol % Arterial Blood Carboxyhemoglobin 1.5 % Arterial Blood Methemoglobin 1.2 % Blood Gas Hemoglobin 8.9 G/DL Oxygen Delivery Device VENTILATOR Blood Gas Ventilator Setting PRVC20/500/+5PEEP Blood Gas Inspired Oxygen 40 % Imaging Last Impressions Chest X-Ray 01/21/17 0000 Signed Impressions: Service Date/Time: Saturday, January 21, 2017 06:46 - CONCLUSION: 1. Increasing congestion and left basilar airspace disease. 2. Stable support devices. Felipe Javier MD Head CT 01/18/17 0343 Signed Impressions: Service Date/Time: Wednesday, January 18, 2017 05:06 - CONCLUSION: No acute intracranial abnormality. Loy Barrientos MD Renal Ultrasound 01/18/17 0000 Signed Impressions: Service Date/Time: Wednesday, January 18, 2017 13:22 - CONCLUSION: Mildly distended collecting systems with prominent bilateral renal pelvises suggestive of early hydronephrosis. No evidence of suspicious renal lesions or nephrolithiasis. Felipe Javier MD Assessment and Plan Problem List: (1) Cardiogenic shock ICD Codes: R57.0 - Cardiogenic shock Status: Acute Plan: 61 y/o F with h/o cardiomyopathy, presented with hypoxia, respiratory distress, acute kidney injury requiring emergent HD and a combination septic and cardiogenic shock/Takotsubo cardiomyopathy. No significant coronary artery disease on LHC. Requiring inotrope and vasopressors. MSSA PNA. Clinical picture echo and cardiac catheterization findings consistent with Takotsubo cardiomyopathy with basal wall hyperkinesis and apical hypokinesis. H&H significant drop today no sign of active bleeding. She remains critically ill, prognosis guarded. Recommendations: 1. Cont IV diuresis and supportive care 2. TATUM today (2) Lactic acidosis ICD Codes: E87.2 - Acidosis Status: Acute (3) Acute renal failure ICD Codes: N17.9 - Acute kidney failure, unspecified Status: Acute (4) Myocardial ischemia ICD Codes: I25.9 - Chronic ischemic heart disease, unspecified Status: Acute (5) Altered mental status ICD Codes: R41.82 - Altered mental status, unspecified Status: Acute (6) Metabolic acidosis ICD Codes: E87.2 - Acidosis Status: Acute (7) Respiratory failure ICD Codes: J96.90 - Respiratory failure, unspecified, unspecified whether with hypoxia or hypercapnia Status: Acute Problem Qualifiers (1) Acute renal failure: Qualified Codes: N17.9 - Acute kidney failure, unspecified (2) Altered mental status: Qualified Codes: R41.0 - Disorientation, unspecified (3) Respiratory failure: Qualified Codes: J96.00 - Acute respiratory failure, unspecified whether with hypoxia or hypercapnia Lalo Waterman MD Jan 21, 2017 14:12
[2017-01-21] MEDS ORDERED: ROCURONIUM INJ 50 MG/5 ML VIAL ONE (14:26)
[2017-01-21 15:01] LABS: BASOPHIL % 0.1 % (0.0-2.0); EOSINOPHIL % 0.2 % (0.0-4.0); HEMATOCRIT 25.2 % (35.0-46.0); LYMPH % 6.4 % (9.0-44.0); LYMPHOCYTE # 0.7 TH/MM3 (1.0-4.8); MEAN CELL VOLUME 99.7 FL (80.0-100.0); MEAN CORPUSCULAR HGB CONC 34.1 % (32.0-36.0); MONO % 9.2 % (0.0-8.0); NEUT % 84.1 % (16.0-70.0); PLATELET COUNT 88 TH/MM3 (150-450); RED BLOOD COUNT 2.53 MIL/MM3 (4.00-5.30); RED CELL DISTRIBUTION WIDTH 14.2 % (11.6-17.2); WHITE BLOOD COUNT 10.7 TH/MM3 (4.0-11.0)
[2017-01-21] MEDS: VASOPRESSIN INJ 40 UNITS in DEXTROSE 5% IN WATER 100ML INJ 98 ML IV SCH ×2 (15:05)
[2017-01-21 15:19] LABS: HEMO FLAGS AUTO DIFF
[2017-01-21 15:35] LABS: ALT (GPT) 29 U/L (10-53); ANION GAP 10 MEQ/L (5-15); AST (GOT) 31 U/L (15-37); BICARBONATE 21.7 MEQ/L (21.0-32.0); BLOOD UREA NITROGEN 48 MG/DL (7-18); CHLORIDE 103 MEQ/L (98-107); GLOMERULAR FILTRATION RATE 12 ML/MIN (>89); POTASSIUM 3.8 MEQ/L (3.5-5.1); SODIUM (NA) 135 MEQ/L (136-145)
[2017-01-21 15:38] LABS: ALKALINE PHOSPHATASE 74 U/L (45-117); TOTAL BILIRUBIN ADULT 0.9 MG/DL (0.2-1.0)
[2017-01-21 16:18] LABS: BANDS 3 % (0-6); MYELOCYTES 3 % (0-0); POLYS (SEG NEUTROPHILS) 78 % (16-70); WBC DIFF SAMPLE 100
[2017-01-21 16:19] LABS: PLATELET ESTIMATE SMEAR LOW (NORMAL); PLATELET MORPHOLOGY NORMAL (NORMAL); SCAN/DIFF FINAL DIFF MANUAL
[2017-01-21] MEDS ORDERED: EPOPROSTENOL NEB SOLUTION 10 NG/KG/MIN 100 ML NEB ONE ×2 (21:00)
[2017-01-22] VITALS (14 sets, daily range): BP systolic 92–138; BP diastolic 51–84; PULSE 52–59; RESP 18; TEMP 97.5–98; O2SAT 92–99
[2017-01-22] MEDS: MEDIUM DOSE INSULIN NOVOLOG SUPPLEMENTAL SCALE SQ SCH ×4 (01:13→17:29)
[2017-01-22] MEDS: PIPERACIL-TAZO 2.25 GM PREMIX 50 ML IV SCH ×3 (02:54→17:35)
[2017-01-22] MEDS: PROPOFOL 1000 MG/100 ML INJ 100 ML IV PRN ×2 (02:54→07:59)
[2017-01-22] MEDS: CHLORHEXIDINE GLUCONATE 2 % 1 PACK (2 CLOTHS) TOP SCH (04:00)
[2017-01-22 05:05] LABS: AUTOMATED NEUTROPHIL # 5.9 TH/MM3 (1.8-7.7); BASOPHIL % 0.2 % (0.0-2.0); EOSINOPHIL % 0.1 % (0.0-4.0); HEMATOCRIT 23.8 % (35.0-46.0); LYMPH % 9.8 % (9.0-44.0); LYMPHOCYTE # 0.7 TH/MM3 (1.0-4.8); MEAN CELL VOLUME 98.7 FL (80.0-100.0); MEAN CORPUSCULAR HEMOGLOBIN 33.4 PG (27.0-34.0); MEAN CORPUSCULAR HGB CONC 33.8 % (32.0-36.0); MONO % 7.2 % (0.0-8.0); NEUT % 82.7 % (16.0-70.0); PLATELET COUNT 72 TH/MM3 (150-450); RED BLOOD COUNT 2.41 MIL/MM3 (4.00-5.30); RED CELL DISTRIBUTION WIDTH 14.1 % (11.6-17.2); WHITE BLOOD COUNT 7.2 TH/MM3 (4.0-11.0)
[2017-01-22 05:10] LABS: HEMO FLAGS AUTO DIFF
[2017-01-22 05:20] LABS: ALT (GPT) 20 U/L (10-53); ANION GAP 15 MEQ/L (5-15); AST (GOT) 15 U/L (15-37); BICARBONATE 18.3 MEQ/L (21.0-32.0); BLOOD UREA NITROGEN 58 MG/DL (7-18); CHLORIDE 103 MEQ/L (98-107); GLOMERULAR FILTRATION RATE 12 ML/MIN (>89); MAGNESIUM 1.6 MG/DL (1.5-2.5); POTASSIUM 3.4 MEQ/L (3.5-5.1); SODIUM (NA) 136 MEQ/L (136-145)
[2017-01-22 05:26] LABS: ALKALINE PHOSPHATASE 65 U/L (45-117); TOTAL BILIRUBIN ADULT 0.7 MG/DL (0.2-1.0)
--- NOTE | 2017-01-22 05:46 | RADRPT ---
EXAM DATE/TIME: 01/22/2017 04:35 [facility] COMPARISON: CHEST SINGLE AP, January 21, 2017, 6:46. INDICATIONS : Respiratory status. MEDICAL HISTORY : None. SURGICAL HISTORY : None. ENCOUNTER: Subsequent ACUITY: 3 days PAIN SCORE: Non-responsive. LOCATION: Bilateral chest FINDINGS: A single view of the chest demonstrates worsening airspace disease in the left hemithorax. Probable a ssociated left-sided effusion. Patient is rotated rightward which distorts the mediastinal structures . Accounting for rotation, right lung is grossly clear. Heart size is borderline prominent. Life supp ort tubes are all stable in position. CONCLUSION: 1. Slight worsening airspace process in the left mid hemithorax with probable associated effusion. Fi ndings may represent some redistribution of the left-sided effusion. 2. Stable position of life support tubes including the endotracheal and nasogastric tubes, right subc lavian central venous catheter and left IJ dialysis type catheter. Vinod Murphy MD on January 22, 2017 at 5:43 Board Certified Radiologist. This report was verified electronically.
--- NOTE | 2017-01-22 06:43 | HHI.CCPN ---
Subjective Remarks/Hospital Course Hospital Course: 61-year-old female was brought in by EMT for altered mental status. She has a history of diabetes hypertension Xanax overdose in the past, she usually goes to [facility]. She had a Cardiac catheterization done there last year and she was told that she is got cardiomyopathy and she needs the bypass surgery however she didn't follow. Today when she was brought she was too lethargic and was intubated by ED attending for an airway protection. On presentation she is in cardiogenic shock, hypotensive on maximum dose of dopamine and Levophed. She is evaluated by svp research and strategic analysis Dr. Day was given a taken emergently to cardiac catheterization. She was also discussed by ED attending with Dr. Rousseau, nephrology who is aware of patient's elevated creatinine and emergent hemodialysis shortly after catheterization. 01/18 Additional documentation: Patient taken emergently to laboratory supervisor. I was called to assist and evaluate patient in laboratory supervisor. patient in shock on dopamine and levophed. LHC without evidence of CAD. LVgram suggestive of normal EF. LVEDP severely elevated ~38 mmHg. RHC with evidence of severe pulmonary hypertension, RVSP 77 mmHg. left and right heart cath suggestive of severe CHF exacerbation with preserved EF, and her critical illness may be secondary to cardiogenic shock. Discussed with Dr. Day, plan to place in CVICU with [place] in place and pursue volume removal, inotropic therapy with milrinone and inhaled flolan. Placed swan (see separate procedure note for details). CI 3.6, cvp 15, pcwp 25. svo2 55%. febrile to 101. repeat troponin went from 2 to 40. still very critically ill. in mixed shock. Subjective: 01/19: persists in cardiogenic shock. volume overload. dialyzed yesterday. now making urine, cr downtrending. remains on milrinone, dopamine, levophed. RHC numbers: HR 127. Art 116/61 (74). RAP 18. PAP 44/26 (33). PCWP 23. CO 6.0/ CI 3.1. SVR 696. PVR 1.6. 01/20: Patient remains in profound cardiogenic and septic shock. Currently on milrinone 0.3 g per KG per minute and dopamine 14 g per KG per minute and Levophed 22 mcg/m. MAP >70. SVR in 800s, PCWP 17. I have added stress dose steroids hydrocortisone 100 mg IV every 8 hours, patient is profoundly tachycardic I will add vasopressin and attempt weaning dopamine to DC. Add vancomycin for GPC 05/14. UO >8 L in 24 hours with 4 mg Bumex and 500 mg Diuril. Reviewed echo EF 35-40%, apical hypokinesis on my review. Most likely Takotsubo cardiomyopathy 01/21: Patient still critically ill but shows some signs of improvement. Levophed is now down to 7 mcg/m. Remains on vasopressin 0.04 international units, milrinone at 0.3 g per KG per minute. Urine output more than 5 L, creat remains at 4.PAC numbers. PA mean 23-26. CO 3.7-6.7/CI2-3. SVR 1073. Hemoglobin has dropped to 7.5 platelet count 82. Transfuse 1 unit PRBC followed by 1 mg of Bumex IV. 01/22: Critically ill but with some hemodynamic improvement. Levophed at 2 mcg per min. and vasopressin remains at 0.04 international units, milrinone at 0.3 g per KG per minute. Chest x-ray shows some increase in left more than right pulmonary vascular congestion-1 mg Bumex IV given. Will request hemodialysis with nephrology. Repeat 2D 01/21 Echo EF 40-45%, severe hypokinesis or akinesis of the anteroapical wall. Wqto-eu-uttqnsfj mitral valve regurgitation. TATUM also done 01/21 confirms fuxo-vq-kisjduyf mitral regurgitation, basal wall hyperkinesis and apical hypokinesis. Objective Vital Signs Date Time Temp Pulse Resp B/P (MAP) Pulse Ox O2 Delivery O2 Flow Rate FiO2 01/22/17 04:00 98.0 56 18 111/62 (78) 94 110/63 (79) 01/22/17 04:00 Mechanical Ventilator 40 Intake and Output 01/22/17 01/22/17 01/23/17 08:00 16:00 00:00 Intake Total 150 ml Balance 150 ml Result Diagram: 01/22/17 0420 01/22/17 0420 Other Results Microbiology Date/Time Source Procedure Growth Status 01/20/17 12:00 Urine Catheterized Urine Legionella Antigen - Final PRESUMPTIVE NEGATIVE FOR LEGIONELLA P... Complete 01/20/17 12:00 Urine Catheterized Urine Streptococcus pneumoniae Antigen (M - Final PRESUMPTIVE NEGATIVE FOR STREPTOCOCCU... Complete Laboratory Tests Test 01/21/17 08:15 Blood Gas Puncture Site ART LINE Blood Gas Patient Temperature 98.6 Blood Gas HCO3 19 mmol/L (22-26) Blood Gas Base Excess -6.1 mmol/L (-2-2) Blood Gas Oxygen Saturation 95 % (90-100) Arterial Blood pH 7.34 (7.380-7.420) Arterial Blood Partial Pressure CO2 35 mmHg (38-42) Arterial Blood Partial Pressure O2 111 mmHg (61-120) Arterial Blood Oxygen Content 12.1 Vol % (12.0-20.0) Arterial Blood Carboxyhemoglobin 1.5 % (0-4) Arterial Blood Methemoglobin 1.2 % (0-2) Blood Gas Hemoglobin 8.9 G/DL (12.0-16.0) Oxygen Delivery Device VENTILATOR Blood Gas Ventilator Setting PRVC20/500/+5PEEP Blood Gas Inspired Oxygen 40 % Objective Remarks Infusions: Levophed 2 Vasopressin 0.04 Milrinone 0.3 Propofol titrate Versed titrate Fentanyl titrate GENERAL: Sedated and intubated obese female, in shock SKIN: Warm and dry. HEAD: Normocephalic. EYES: No scleral icterus. No injection or drainage. ENT: Orotracheally intubated NECK: trachea midline. right SC TLC and left IJ Vascath in place, left SC cordis and PAC removed 01/21 CARDIOVASCULAR: HR 70 /min. sinus by tele. Systolic murmur in all areas. MAP 70 -80 on Levophed, vasopressin and milrinone RESPIRATORY: Breath sounds equal bilaterally, with few basilar crackles. Clear to auscultation anteriorly GASTROINTESTINAL: Abdomen soft, non-tender, nondistended. MUSCULOSKELETAL: No cyanosis, or edema. NEURO EXAM: RASS -3. w/d to pain. Opens eyes to noxious stimuli, moves extremities purposefully. A/P Assessment and Plan Assessment: 61yF with h/o cardiomyopathy, presented with hypoxia, respiratory distress and combination septic and cardiogenic shock. Clinical picture consistent with Takotsubo cardiomyopathy. Requiring inotropes and vasopressors, slowly decreasing requirements of vasopressors. Required emergent hemodialysis. Will request HD today NEURO: Toxic encephalopathy - Continue sedation due to hemodynamic instability, severe shock - Prop/fent/Versed for goal RASS -3. Start reducing sedation to RASS -2 - UDS + for bzd RESP: Acute hypoxic Respiratory failure MSSA pneumonia Pulmonary edema - Start SBT in next 24 hours, if hemodynamically more stable - Vent bundle. DuoNeb q6 PRN - Chest x-ray today shows some worsening in pulmonary edema-request HD today - On vanc/zosyn/Levoquin for empiric abx coverage. DC Vanc and Levaquin today CVS: Takotsubo cardiomyopathy Cardiogenic and septic shock Troponin elevation due to Takotsubo cardiomyopathy Pulmonary edema History of hypertrophic cardiomyopathy - Clinical picture, echo and cardiac catheterization findings consistent with Takotsubo cardiomyopathy (EF 35-40% with apical WMA, normal coronaries) - 01/[address] Day, no acute obstruction, no significant CAD - Repeat 2D 01/21 Echo EF 40-45%, severe hypokinesis/akinesis of the anteroapical wall. Orim-pq-lyahnypx mitral valve regurgitation - TATUM 01/21 confirms ipro-rq-scecrqev mitral regurgitation, basal wall hyperkinesis and apical hypokinesis. - Levophed and vasopressin to keep MAP above 65 mmHg. Wean to DC Levophed - Milrinone at 0.3 mcg/kg/min-reduce to 0.2 micrograms per KG per minute - Stress dose steroids, IV albumin - DCd PA catheter 01/21. trend cardiac output with FloTrac - UO >5L in 24 hours with diuretics. IV Albumin. - Give 1mg Bumex today. Received Bumex 4mg iv x 1 and diuril 500mg iv x 1 01/19 with 8 L fluid output - Request HD - Cardiology Dr. Day : Severe metabolic acidosis- resolving. - Acute kidney injury from shock. Creatinine remains elevated at 3.9, BUN increased to 58 - Dr. Rousseau. Stat hemodialysis 01/18, currently nonoliguric - Request HD today and 01/22/70 due to worsening pulmonary edema, give 1 mg Bumex - Strict I's and Os - UO 1.5 L in 24 hours - History of metformin GI: Transaminitis - Elevated liver enzymes due to shock - Start tube feeds with Nepro, patient had one bowel movement yesterday - IV Protonix 40 mg q12 ID: Septic and cardiogenic shock MSSA pneumonia Coag negative staph and blood most likely contamination - On Zosyn, and vancomycin pharmacy to dose, and Levaquin. DC Vanc and Levaquin today - Change Zosyn to Rocephin if repeat sputum culture 01/22 grows MSSA again - Blood culture coag negative staph / bottles, sputum MSSA and urine culture - negative to date - Neg urine for Legionella and pneumococcal antigen - Stress dose steroids HEME: Mild thrombocytopenia Anemia - HIT panel pending, thrombocytopenia could be DIC/sepsis versus drug-induced - Check PT/PTT, fibrinogen - Received 1 unit PRBC on 01/21/17 ENDO: Diabetes mellitus - Hold metformin due to above - Insulin sliding scale, Levemir 10 units every 12 DVT GI prophylaxis - Hold chemical DVT prophylaxis until HIT screen is back - SCDs Critical Care: The total critical care time was 40 minutes. Time to perform other separately billable procedures was not included in the critical care time. Lo Granado MD Jan 22, 2017 06:43
[2017-01-22] MEDS ORDERED: POTASSIUM CHLOR 20 MEQ PREMIX 100 ML IV ONE ×2 (06:45)
[2017-01-22] MEDS ORDERED: BUMETANIDE INJ 1 MG/4 ML VIAL IV PUSH ONE (06:45)
[2017-01-22] MEDS: HYDROCORTISONE SOD SUCCINATE 100 MG VIAL IV SCH ×2 (07:59→15:33)
[2017-01-22 08:15] LABS: BANDS 4 % (0-6); METAMYELOCYTES 2 % (0-1); MYELOCYTES 2 % (0-0); NEUTROPHIL # MANUAL DIFF 5.9 TH/MM3 (1.8-7.7); POLYS (SEG NEUTROPHILS) 74 % (16-70); WBC DIFF SAMPLE 100
[2017-01-22 08:16] LABS: PLATELET ESTIMATE SMEAR LOW (NORMAL); PLATELET MORPHOLOGY NORMAL (NORMAL); SCAN/DIFF FINAL DIFF MANUAL
[2017-01-22 08:17] LABS: HOWELL-JOLLY BODIES PRESENT (NONE SEEN)
[2017-01-22] MEDS: MAGNESIUM SULFATE 1 GM PREMIX 100 ML IV SCH ×2 (08:47→09:46)
[2017-01-22] MEDS: PANTOPRAZOLE SODIUM 40 MG VIAL IV PUSH SCH ×2 (08:47→21:05)
[2017-01-22] MEDS: DOCUSATE SODIUM 50 MG/SENNA 8.6 MG TAB PO SCH ×2 (08:47→21:05)
[2017-01-22] MEDS: SODIUM CHLORIDE 0.9% FLUSH 10 ML FLUSH SCH ×2 (08:48→21:05)
[2017-01-22] MEDS: INSULIN DETEMIR 100 UNITS/ML VIAL SQ SCH ×2 (08:48→21:04)
[2017-01-22] MEDS: MILRINONE INJ 20 MG in SODIUM CHLORIDE 0.9% INJ 80 ML IV SCH (08:58)
[2017-01-22] MEDS ORDERED: SODIUM BICARBONATE 8.4% INJ 50 MEQ/50 ML SYR IV PUSH ONE (09:00)
[2017-01-22] MEDS: BENEPROTEIN POWDER 1 PACK G-TUBE SCH ×3 (09:00→17:35)
[2017-01-22] MEDS: POTASSIUM BICARBONATE 25 MEQ EFFERVESCENT TAB PO SCH (09:45)
--- NOTE | 2017-01-22 10:45 | ECHRPT ---
Indication: Assess EF CONCLUSIONS Dilated Left Atrium Atrial septum bulgin to the right Normal LV dimension EF 40% Apical hypokinesis Mild mitral regurgitation No significant valvulopathies No thrmobus or massess No Pericardial effusion BP: / HR: Rhythm: Technical Quality: Medications Complications Proc. Components Lalo Waterman MD (Electronically Signed) Final Date:22 January 2017 10:43
[2017-01-22 11:54] LABS: APTT (PATIENT) 29.9 SEC (24.3-30.1); PROTHROMBIN TIME - PATIENT 11.6 SEC (9.8-11.6)
[2017-01-22] MEDS: fentaNYL DRIP 250 ML IV PRN (11:56)
[2017-01-22] MEDS: VASOPRESSIN INJ 40 UNITS in DEXTROSE 5% IN WATER 100ML INJ 98 ML IV SCH ×2 (14:24)
[2017-01-22] MEDS: DEXMEDETOMIDINE INJ 200 MCG in SODIUM CHLORIDE 0.9% INJ 50 ML IV PRN ×3 (14:29→18:51)
[2017-01-22] MEDS: MIDAZOLAM 100 MG/100 ML INJ 100 ML IV PRN (15:28)
[2017-01-22] MEDS ORDERED: BUMETANIDE INJ 1 MG/4 ML VIAL ONE (17:22)
--- NOTE | 2017-01-22 20:21 | HHI.NPPN ---
Subjective History of Present Illness 61 year old female OD on prescription medications, intubated Additional Remarks on vent Objective Data Data 01/22/17 01/23/17 19:00 07:00 Intake Total 1103 ml Output Total 950 ml Balance 153 ml Intake IV Total 1051 ml Tube Feeding 52 ml Output Urine Total 850 ml Gastric Drainage Total 100 ml # Bowel Movements 0 Vital Signs Date Time Temp Pulse Resp B/P (MAP) Pulse Ox O2 Delivery O2 Flow Rate FiO2 01/22/17 20:01 40 01/22/17 19:20 97.5 55 18 131/84 (100) 94 134/78 (96) 01/22/17 19:20 94 Mechanical Ventilator 40 01/22/17 16:00 40 01/22/17 15:00 97.7 56 18 110/58 (75) 97 96/61 (73) 01/22/17 15:00 56 01/22/17 15:00 97 Mechanical Ventilator 40 01/22/17 14:24 58 91/58 01/22/17 14:06 98 40 01/22/17 12:00 40 01/22/17 11:00 97 Mechanical Ventilator 40 01/22/17 11:00 56 01/22/17 11:00 97.6 54 18 96/51 (66) 97 92/55 (67) 01/22/17 11:00 56 01/22/17 08:58 52 129/56 01/22/17 08:37 97 40 01/22/17 08:00 40 01/22/17 07:00 56 01/22/17 07:00 97.6 52 18 105/54 (71) 97 110/65 (80) 01/22/17 07:00 96 Mechanical Ventilator 40 01/22/17 07:00 52 01/22/17 04:00 56 01/22/17 04:00 98.0 56 18 111/62 (78) 94 110/63 (79) 01/22/17 04:00 94 Mechanical Ventilator 40 01/22/17 04:00 40 01/22/17 03:32 95 40 01/22/17 00:00 97.7 59 18 138/79 (98) 99 131/74 (93) 01/22/17 00:00 99 Mechanical Ventilator 40 01/22/17 00:00 58 01/22/17 00:00 40 01/21/17 23:50 96 40 01/21/17 21:45 82/51 01/21/17 21:00 133/79 01/21/17 20:40 99 40 -: 01/22/17 0420 01/22/17 0420 Microbiology 01/22/17 Aerobic Blood Culture, Received Pending 01/22/17 Anaerobic Blood Culture, Received Pending 01/22/17 Aerobic Blood Culture, Received Pending 01/22/17 Anaerobic Blood Culture, Received Pending 01/22/17 Gram Stain - Final, Resulted 01/22/17 Sputum Culture, Resulted Pending Physical Exam General Appearance: Well Developed Neck Neck Exam: Neck Supple Pulmonary Resp Exam: Clear Bilaterally, Breath Sounds Equal Cardiology CV Exam: Regular, Normal Sinus Rhythm Gastrointestinal/Abdomen GI Exam: Soft, Non-Tender, Bowel Sounds Present Integumentary Skin Exam: Clear Extremeties Extremities Exam: No Edema Assessment/Plan Problem List: (1) Acute renal failure ICD Codes: N17.9 - Acute kidney failure, unspecified Status: Acute Plan: Patient appears to have overdosed on prescription medications ARF Non oliguric UOP Fair due to fluid overload we will do dialysis today d/w staff and Dr Granado (2) Lactic acidosis ICD Codes: E87.2 - Acidosis Status: Acute Plan: (3) Cardiogenic shock ICD Codes: R57.0 - Cardiogenic shock Status: Acute Plan: Post heart catheterization which did not showed critical blockage EF 40% Cardiomyopathy Troponin 40 (4) Respiratory failure ICD Codes: J96.90 - Respiratory failure, unspecified, unspecified whether with hypoxia or hypercapnia Status: Acute Plan: Intubated Problem Qualifiers (1) Acute renal failure: Qualified Codes: N17.9 - Acute kidney failure, unspecified (2) Respiratory failure: Qualified Codes: J96.00 - Acute respiratory failure, unspecified whether with hypoxia or hypercapnia Aime Rousseau MD Jan 22, 2017 20:21
[2017-01-22] MEDS: GENTAMICIN SULFATE (DIALYSIS USE ONLY) 20 MG/2 ML VIAL IV PRN (23:55)
[2017-01-23] VITALS (15 sets, daily range): BP systolic 101–132; BP diastolic 52–74; PULSE 53–104; RESP 18–24; TEMP 97.6–100.1; O2SAT 91–98
[2017-01-23] MEDS: fentaNYL DRIP 250 ML IV PRN ×2 (01:00→11:44)
[2017-01-23] MEDS: PIPERACIL-TAZO 2.25 GM PREMIX 50 ML IV SCH ×3 (02:15→17:44)
[2017-01-23] MEDS: MILRINONE INJ 20 MG in SODIUM CHLORIDE 0.9% INJ 80 ML IV SCH (03:15)
[2017-01-23] MEDS: CHLORHEXIDINE GLUCONATE 2 % 1 PACK (2 CLOTHS) TOP SCH (04:00)
[2017-01-23 05:51] LABS: BASOPHIL % 0.1 % (0.0-2.0); HEMATOCRIT 26.9 % (35.0-46.0); LYMPH % 11.6 % (9.0-44.0); MEAN CELL VOLUME 99.4 FL (80.0-100.0); MEAN CORPUSCULAR HEMOGLOBIN 33.8 PG (27.0-34.0); MONO % 5.5 % (0.0-8.0); NEUT % 82.8 % (16.0-70.0); PLATELET COUNT 91 TH/MM3 (150-450); RED BLOOD COUNT 2.71 MIL/MM3 (4.00-5.30); RED CELL DISTRIBUTION WIDTH 14.3 % (11.6-17.2); WHITE BLOOD COUNT 8.4 TH/MM3 (4.0-11.0)
--- NOTE | 2017-01-23 06:02 | RADRPT ---
EXAM DATE/TIME: 01/23/2017 04:26 [facility] COMPARISON: CHEST SINGLE AP, January 22, 2017, 4:35. INDICATIONS : Respiratory failure, post CABG MEDICAL HISTORY : None. SURGICAL HISTORY : CABG. ENCOUNTER: Subsequent ACUITY: 3 days PAIN SCORE: Non-responsive. LOCATION: Bilateral chest FINDINGS: A single view of the chest demonstrates the lungs to be symmetrically aerated with improving bilatera l airspace disease. Life support tubes are all stable in position. Heart size is less prominent when compared to the prior. CONCLUSION: Improving radiographic appearance of the chest with resolving airspace disease particularly on t he left. Vinod Murphy MD on January 23, 2017 at 5:58 Board Certified Radiologist. This report was verified electronically.
[2017-01-23 06:07] LABS: ALKALINE PHOSPHATASE 81 U/L (45-117); ALT (GPT) 26 U/L (10-53); ANION GAP 12 MEQ/L (5-15); AST (GOT) 19 U/L (15-37); BICARBONATE 24.9 MEQ/L (21.0-32.0); BLOOD UREA NITROGEN 59 MG/DL (7-18); CHLORIDE 102 MEQ/L (98-107); GLOMERULAR FILTRATION RATE 14 ML/MIN (>89); MAGNESIUM 2.3 MG/DL (1.5-2.5); POTASSIUM 3.4 MEQ/L (3.5-5.1); SODIUM (NA) 139 MEQ/L (136-145); TOTAL BILIRUBIN ADULT 0.7 MG/DL (0.2-1.0)
[2017-01-23 06:11] LABS: HEMO FLAGS AUTO DIFF
[2017-01-23] MEDS: MEDIUM DOSE INSULIN NOVOLOG SUPPLEMENTAL SCALE SQ SCH ×4 (06:26→17:41)
[2017-01-23 07:07] LABS: METAMYELOCYTES 1 % (0-1); POLYS (SEG NEUTROPHILS) 81 % (16-70); PROMYELOCYTES 1 % (0-0); WBC DIFF SAMPLE 100
[2017-01-23 07:08] LABS: PLATELET ESTIMATE SMEAR LOW (NORMAL); PLATELET MORPHOLOGY NORMAL (NORMAL); SCAN/DIFF FINAL DIFF MANUAL
[2017-01-23] MEDS: HYDROCORTISONE SOD SUCCINATE 100 MG VIAL IV SCH ×2 (08:10)
[2017-01-23 08:23] LABS: HEPARIN INDUCED PLATELET AB NEGATIVE (NEGATIVE)
[2017-01-23] MEDS: DEXMEDETOMIDINE INJ 200 MCG in SODIUM CHLORIDE 0.9% INJ 50 ML IV PRN ×6 (08:41→22:14)
[2017-01-23] MEDS: INSULIN DETEMIR 100 UNITS/ML VIAL SQ SCH ×2 (08:56→21:25)
[2017-01-23] MEDS: BENEPROTEIN POWDER 1 PACK G-TUBE SCH ×3 (08:57→16:00)
[2017-01-23] MEDS: SODIUM CHLORIDE 0.9% FLUSH 10 ML FLUSH SCH ×2 (08:57→21:25)
[2017-01-23] MEDS: PANTOPRAZOLE SODIUM 40 MG VIAL IV PUSH SCH ×2 (08:57→21:24)
[2017-01-23] MEDS: DOCUSATE SODIUM 50 MG/SENNA 8.6 MG TAB PO SCH ×2 (08:58→20:17)
[2017-01-23] MEDS: POTASSIUM BICARBONATE 25 MEQ EFFERVESCENT TAB PO SCH (08:58)
[2017-01-23] MEDS ORDERED: DEXMEDETOMIDINE HCL 200 MCG/2 ML VIAL ONE (11:56)
[2017-01-23] MEDS ORDERED: HALOPERIDOL LACTATE 5 MG/ML AMP IV PUSH PRN ×2 (13:15→16:00)
--- NOTE | 2017-01-23 14:32 | HHI.CCPN ---
Subjective Remarks/Hospital Course Hospital Course: 61-year-old female was brought in by EMT for altered mental status. She has a history of diabetes hypertension Xanax overdose in the past, she usually goes to [facility]. She had a Cardiac catheterization done there last year and she was told that she is got cardiomyopathy and she needs the bypass surgery however she didn't follow. Today when she was brought she was too lethargic and was intubated by ED attending for an airway protection. On presentation she is in cardiogenic shock, hypotensive on maximum dose of dopamine and Levophed. She is evaluated by furniture repairer Dr. Day was given a taken emergently to cardiac catheterization. She was also discussed by ED attending with Dr. Rousseau, nephrology who is aware of patient's elevated creatinine and emergent hemodialysis shortly after catheterization. 01/18 Additional documentation: Patient taken emergently to manager laboratory. I was called to assist and evaluate patient in manager laboratory. patient in shock on dopamine and levophed. LHC without evidence of CAD. LVgram suggestive of normal EF. LVEDP severely elevated ~38 mmHg. RHC with evidence of severe pulmonary hypertension, RVSP 77 mmHg. left and right heart cath suggestive of severe CHF exacerbation with preserved EF, and her critical illness may be secondary to cardiogenic shock. Discussed with Dr. Day, plan to place in CVICU with [place] in place and pursue volume removal, inotropic therapy with milrinone and inhaled flolan. Placed swan (see separate procedure note for details). CI 3.6, cvp 15, pcwp 25. svo2 55%. febrile to 101. repeat troponin went from 2 to 40. still very critically ill. in mixed shock. Subjective: 01/19: persists in cardiogenic shock. volume overload. dialyzed yesterday. now making urine, cr downtrending. remains on milrinone, dopamine, levophed. RHC numbers: HR 127. Art 116/61 (74). RAP 18. PAP 44/26 (33). PCWP 23. CO 6.0/ CI 3.1. SVR 696. PVR 1.6. 01/20: Patient remains in profound cardiogenic and septic shock. Currently on milrinone 0.3 g per KG per minute and dopamine 14 g per KG per minute and Levophed 22 mcg/m. MAP >70. SVR in 800s, PCWP 17. I have added stress dose steroids hydrocortisone 100 mg IV every 8 hours, patient is profoundly tachycardic I will add vasopressin and attempt weaning dopamine to DC. Add vancomycin for GPC 05/14. UO >8 L in 24 hours with 4 mg Bumex and 500 mg Diuril. Reviewed echo EF 35-40%, apical hypokinesis on my review. Most likely Takotsubo cardiomyopathy 01/21: Patient still critically ill but shows some signs of improvement. Levophed is now down to 7 mcg/m. Remains on vasopressin 0.04 international units, milrinone at 0.3 g per KG per minute. Urine output more than 5 L, creat remains at 4.PAC numbers. PA mean 23-26. CO 3.7-6.7/CI2-3. SVR 1073. Hemoglobin has dropped to 7.5 platelet count 82. Transfuse 1 unit PRBC followed by 1 mg of Bumex IV. 01/22: Critically ill but with some hemodynamic improvement. Levophed at 2 mcg per min. and vasopressin remains at 0.04 international units, milrinone at 0.3 g per KG per minute. Chest x-ray shows some increase in left more than right pulmonary vascular congestion-1 mg Bumex IV given. Will request hemodialysis with nephrology. Repeat 2D 01/21 Echo EF 40-45%, severe hypokinesis or akinesis of the anteroapical wall. Rsgy-ur-qxuorfvp mitral valve regurgitation. TATUM also done 01/21 confirms ytvj-ht-letdtnxd mitral regurgitation, basal wall hyperkinesis and apical hypokinesis. 01/23: off vasopressors this morning. on SBT, but RSBI > 110 and tachypneic. very agitated and on multiple different sedatives. self-extubated later this afternoon, but stable from a respiratory standpoint. very agitated and delirious , RASS +2, despite haldol and precedex. possibility of steroid induced psychosis /delirium, will stop hydrocortisone. Objective Vital Signs Date Time Temp Pulse Resp B/P (MAP) Pulse Ox O2 Delivery O2 Flow Rate FiO2 01/23/17 14:25 98.0 01/23/17 12:14 98 40 01/23/17 11:12 59 18 109/63 (78) 01/23/17 11:11 Mechanical Ventilator Intake and Output 01/23/17 01/23/17 01/24/17 08:00 16:00 00:00 Intake Total 870 ml 100 ml Output Total 570 ml Balance 300 ml 100 ml Result Diagram: 01/23/1743901/23/17439 Objective Remarks GENERAL: awake, alert, recently extubated, agitated and delirious. SKIN: Warm and dry. HEAD: Normocephalic. EYES: No scleral icterus. No injection or drainage. NECK: trachea midline. right SC TLC and left IJ Vascath in place CARDIOVASCULAR:. sinus by tele. Systolic murmur in all areas. MAP 70-80 on L milrinone RESPIRATORY: Breath sounds equal bilaterally, with few basilar crackles. Clear to auscultation anteriorly GASTROINTESTINAL: Abdomen soft, non-tender, nondistended. MUSCULOSKELETAL: No cyanosis, or edema. NEURO EXAM: RASS +2. CAM +. follows commands but very agitated. screaming for her sister A/P Assessment and Plan Assessment: 61yF with h/o cardiomyopathy, presented with hypoxia, respiratory distress and combination septic and cardiogenic shock. Clinical picture consistent with Takotsubo cardiomyopathy. Requiring inotropes and vasopressors, slowly decreasing requirements of vasopressors. Required emergent hemodialysis. Now extubated, but agitated delirium which is likely multifactorial from benzodiazepine use, ICU delirium, possible component of steroid induced delirium. will treat with precedex and haldol and allow other sedating meds to clear. NEURO: Toxic encephalopathy Agitated Delirium - d/c propofol, fentanyl, versed - continue precedex - haldol 5mg iv q1h prn - seroquel 100mg po q8h - UDS + for bzd RESP: Acute hypoxic Respiratory failure- resolving. MSSA pneumonia Pulmonary edema - self-extubated 01/23. - Vent bundle. DuoNeb q6 PRN - bumex 2mg iv x 1 given today - zosyn for coverage. CVS: Takotsubo cardiomyopathy Cardiogenic and septic shock- resolving. Troponin elevation due to Takotsubo cardiomyopathy Pulmonary edema History of hypertrophic cardiomyopathy - Clinical picture, echo and cardiac catheterization findings consistent with Takotsubo cardiomyopathy (EF 35-40% with apical WMA, normal coronaries) - 01/[address] Day, no acute obstruction, no significant CAD - Repeat 2D 01/21 Echo EF 40-45%, severe hypokinesis/akinesis of the anteroapical wall. Dioi-hp-debzbrda mitral valve regurgitation - TATUM 01/21 confirms skkk-bk-wftnuhps mitral regurgitation, basal wall hyperkinesis and apical hypokinesis. - Milrinone at 0.2 mcg/kg/min. - DCd PA catheter 01/21. trend cardiac output with FloTrac - Cardiology Dr. Day : Severe metabolic acidosis- resolved - Acute kidney injury from shock. Creatinine remains elevated - Dr. Rousseau. Stat hemodialysis 01/18, currently nonoliguric - Request HD today and 01/22/70 due to worsening pulmonary edema, give 2 mg Bumex - Strict I's and Os - UO 1.5 L in 24 hours - History of metformin GI: Transaminitis - Elevated liver enzymes due to shock - Start tube feeds with Nepro, patient had one bowel movement yesterday - IV Protonix 40 mg q12 ID: Septic and cardiogenic shock- resolving. MSSA pneumonia Coag negative staph and blood most likely contamination - On Zosyn, and vancomycin pharmacy to dose, and Levaquin. DC Vanc and Levaquin today - Change Zosyn to Rocephin if repeat sputum culture 01/22 grows MSSA again - Blood culture coag negative staph 05/14 bottles, sputum MSSA and urine culture - negative to date - Neg urine for Legionella and pneumococcal antigen - d/c stress dose steroids. HEME: Mild thrombocytopenia Anemia - HIT panel pending, thrombocytopenia could be DIC/sepsis versus drug-induced - Check PT/PTT, fibrinogen - Received 1 unit PRBC on 01/21/17 ENDO: Diabetes mellitus - Hold metformin due to above - Insulin sliding scale, Levemir 10 units every 12 DVT GI prophylaxis - HIT negative. start SQH. - SCDs Critical Care: The total critical care time was 50 minutes. Time to perform other separately billable procedures was not included in the critical care time. Isacc Alvarado MD Jan 23, 2017 14:32
[2017-01-23] MEDS ORDERED: OLANZapine ODT 10 MG TAB PO SCH (15:30)
[2017-01-23] MEDS ORDERED: BUMETANIDE INJ 1 MG/4 ML VIAL ONE (15:38)
--- NOTE | 2017-01-23 15:50 | PD.CARD.PN ---
Subjective Subjective Remarks off pressores intubated agitated Objective Medications Current Medications Medications (Trade) Dose Ordered Sig/Rashi Route Start Time Stop Time Status Last Admin (Brethine Inj) 1 mg UNSCH PRN SQ 01/18/17 04:45 (NS Flush) 2 ml UNSCH PRN .XX 01/18/17 05:30 (NS Flush) 2 ml BID .XX 01/18/17 09:00 01/23/17 08:57 (Tylenol) 650 mg Q6H PRN PO 01/18/17 05:30 01/20/17 01:37 (Duoneb Neb) 1 ampule Q2HR NEB PRN INH 01/18/17 05:30 01/23/17 03:30 Miscellaneous Information 1 Q361D XX 01/18/17 05:30 (Chlorhexidine 2% Cloth) 3 pack Taper DAILY@04 TOP 01/19/17 04:00 01/15/18 03:59 01/23/17 04:00 (Chlorhexidine 2% Cloth) 3 pack UNSCH PRN TOP 01/18/17 05:30 (Mali-Colace) 1 tab BID PO 01/18/17 09:00 01/22/17 21:05 (Senokot) 17.2 mg Q12H PRN PO 01/18/17 05:30 (Dulcolax Supp) 10 mg DAILY PRN RECTAL 01/18/17 05:30 (Lactulose Liq) 30 ml DAILY PRN PO 01/18/17 05:30 Fentanyl Citrate 250 ml @ 5 mls/hr TITRATE PRN IV 01/18/17 05:30 01/23/17 11:44 Sodium Chloride 1,000 ml @ 0 mls/hr Q0M PRN OTHER 01/18/17 06:05 01/18/17 12:18 (Heparin Inj) 8,000 units UNSCH PRN IVF 01/18/17 06:15 Sodium Chloride 1,000 ml @ 200 mls/hr Q5H PRN IV 01/18/17 06:05 Sodium Chloride 1,000 ml @ 0 mls/hr Q0M PRN OTHER 01/18/17 06:05 (Mannitol Inj) 12.5 gm UNSCH PRN IV 01/18/17 06:15 (Albumin 25% Inj) 25 gm UNSCH PRN IV 01/18/17 06:15 (NS Flush) 5 ml UNSCH PRN IV FLUSH 01/18/17 06:15 01/18/17 12:19 (Heparin Inj) UNSCH PRN .XX 01/18/17 06:15 01/18/17 12:20 (Gentamicin (Dialysis) Inj) 20 mg UNSCH PRN IV 01/18/17 06:15 01/22/17 23:55 (Zofran Inj) 4 mg UNSCH PRN IV 01/18/17 06:15 (Tylenol) 650 mg UNSCH PRN PO 01/18/17 06:15 (Gelfoam 12 Mm/7 Mm Top) 1 foam UNSCH PRN TOP 01/18/17 06:15 (Atropine Inj) 0.5 mg UNSCH PRN IV PUSH 01/18/17 07:45 (Zofran Inj) 4 mg Q4H PRN IV PUSH 01/18/17 07:45 Milrinone Lactate 20 mg/Sodium Chloride 100 ml @ 6 mls/hr [id number] IV 01/18/17 07:48 01/23/17 03:15 Piperacillin Sod/ Tazobactam Sod 50 ml @ 100 mls/hr Q8H IV 01/18/17 18:00 01/23/17 10:09 (D50w (Vial) Inj) 50 ml UNSCH PRN IV PUSH 01/18/17 18:00 (Glucagon Inj) 1 mg UNSCH PRN OTHER 01/18/17 18:00 (NovoLOG SUPPLEMENTAL SCALE) 1 Q6HR SQ 01/18/17 18:00 01/23/17 11:34 Norepinephrine Bitartrate 250 ml @ 7.5 mls/hr TITRATE PRN IV 01/20/17 04:00 01/21/17 18:40 Vasopressin 40 units/Dextrose 100 ml @ 4.5 mls/hr [id number] IV 01/20/17 07:16 01/22/17 14:24 Midazolam HCl 100 ml @ 2 mls/hr TITRATE PRN IV 01/20/17 07:30 01/22/17 15:28 (SoluCORTEF INJ) 100 mg Q8H IV 01/20/17 08:00 01/23/17 08:10 Propofol 100 ml @ 2.349 mls/ hr TITRATE PRN IV 01/20/17 20:30 01/22/17 07:59 (Levemir Inj) 10 units Q12HR SQ 01/21/17 09:00 01/23/17 08:56 (Effer-K Eff) 25 meq DAILY PO 01/22/17 09:00 01/23/17 08:58 (Beneprotein Powder) 1 pack TID G-TUBE 01/22/17 09:00 01/23/17 08:57 (Protonix Inj) 40 mg Q12H IV PUSH 01/22/17 09:00 01/23/17 08:57 Dexmedetomidine HCl 200 mcg/ Sodium Chloride 52 ml @ 4.12 mls/hr TITRATE PRN IV 01/22/17 14:30 01/23/17 15:39 (Heparin Inj) 5,000 units Q8H SQ 01/23/17 16:00 (Haldol Inj) 5 mg Q4H PRN IV PUSH 01/23/17 13:15 (ZyPREXA ZYDIS ODT) 10 mg Q8HR PO 01/23/17 15:30 Vital Signs / I&O Vital Signs Date Time Temp Pulse Resp B/P (MAP) Pulse Ox O2 Delivery O2 Flow Rate FiO2 01/23/17 15:46 94 Nasal Cannula 6.00 01/23/17 15:07 94 Mechanical Ventilator 40 01/23/17 15:06 88 01/23/17 15:05 98.4 88 18 111/62 (78) 95 01/23/17 14:25 98.0 01/23/17 12:14 98 40 01/23/17 12:14 40 01/23/17 12:04 40 01/23/17 11:12 98.0 59 18 109/63 (78) 95 01/23/17 11:11 70 01/23/17 11:11 94 Mechanical Ventilator 40 01/23/17 08:06 40 01/23/17 07:37 61 01/23/17 07:37 98.0 53 18 121/74 (90) 95 117/66 (83) 01/23/17 07:36 95 Mechanical Ventilator 40 01/23/17 07:35 97 40 01/23/17 04:30 91 40 01/23/17 04:22 40 01/23/17 03:41 53 135/76 01/23/17 03:15 54 132/74 01/23/17 03:00 54 01/23/17 03:00 93 Mechanical Ventilator 40 01/23/17 03:00 97.6 54 18 121/72 (88) 93 132/74 (93) 01/23/17 02:00 40 01/23/17 01:48 98 40 01/23/17 00:00 40 01/22/17 23:45 92 Mechanical Ventilator 40 01/22/17 23:45 97.6 56 18 123/78 (93) 92 124/76 (92) 01/22/17 23:00 53 01/22/17 20:01 40 01/22/17 19:20 97.5 55 18 131/84 (100) 94 134/78 (96) 01/22/17 19:20 94 Mechanical Ventilator 40 01/22/17 19:00 54 01/22/17 16:00 40 I/O 01/22/17 01/22/17 01/22/17 01/23/17 01/23/17 01/23/17 07:00 15:00 23:00 07:00 15:00 23:00 Intake Total 1114 ml 449 ml 654 ml 870 ml 100 ml 200 ml Output Total 800 ml 1070.0 ml 4570 ml Balance 314 ml 449 ml -416.0 ml -3700 ml 100 ml 200 ml Intake IV Total 1114 ml 449 ml 602 ml 870 ml 100 ml 200 ml Tube Feeding 52 ml Output Urine Total 600 ml 850 ml 320 ml Gastric Drainage Total 200 ml 100 ml 250 ml Tube Feeding Residual Discard 120.0 ml Hemodialysis 4000 ml # Bowel Movements 1 0 3 Physical Exam GENERAL: Sedated, intubated, critically ill SKIN: Warm and dry. HEAD: Normocephalic. EYES: No scleral icterus. No injection or drainage. NECK: Supple, trachea midline. No JVD or lymphadenopathy. CARDIOVASCULAR: Regular rate and rhythm without murmurs, gallops, or rubs. RESPIRATORY: Breath sounds equal bilaterally. No accessory muscle use. GASTROINTESTINAL: Abdomen soft, non-tender, nondistended. EXTREMITIES: No cyanosis, or edema. Laboratory Laboratory Tests Test 01/23/17 04:40 White Blood Count 8.4 TH/MM3 Red Blood Count 2.71 MIL/MM3 Hemoglobin 9.2 GM/DL Hematocrit 26.9 % Mean Corpuscular Volume 99.4 FL Mean Corpuscular Hemoglobin 33.8 PG Mean Corpuscular Hemoglobin Concent 34.0 % Red Cell Distribution Width 14.3 % Platelet Count 91 TH/MM3 Mean Platelet Volume 9.2 FL Neutrophils (%) (Auto) 82.8 % Lymphocytes (%) (Auto) 11.6 % Monocytes (%) (Auto) 5.5 % Eosinophils (%) (Auto) 0.0 % Basophils (%) (Auto) 0.1 % Neutrophils # (Auto) 7.0 TH/MM3 Lymphocytes # (Auto) 1.0 TH/MM3 Monocytes # (Auto) 0.5 TH/MM3 Eosinophils # (Auto) 0.0 TH/MM3 Basophils # (Auto) 0.0 TH/MM3 CBC Comment AUTO DIFF Differential Total Cells Counted 100 Neutrophils % (Manual) 81 % Lymphocytes % 10 % Monocytes % 7 % Neutrophils # (Manual) 7.0 TH/MM3 Metamyelocytes 1 % Promyelocytes 1 % Differential Comment FINAL DIFF MANUAL Platelet Estimate LOW Platelet Morphology Comment NORMAL Red Cell Morphology Comment NORMAL Blood Urea Nitrogen 59 MG/DL Creatinine 3.46 MG/DL Random Glucose 188 MG/DL Total Protein 6.2 GM/DL Albumin 2.9 GM/DL Calcium Level 8.3 MG/DL Magnesium Level 2.3 MG/DL Alkaline Phosphatase 81 U/L Aspartate Amino Transf (AST/SGOT) 19 U/L Alanine Aminotransferase (ALT/SGPT) 26 U/L Total Bilirubin 0.7 MG/DL Sodium Level 139 MEQ/L Potassium Level 3.4 MEQ/L Chloride Level 102 MEQ/L Carbon Dioxide Level 24.9 MEQ/L Anion Gap 12 MEQ/L Estimat Glomerular Filtration Rate 14 ML/MIN Assessment and Plan Problem List: (1) Cardiogenic shock ICD Codes: R57.0 - Cardiogenic shock Status: Acute Plan: Takotsubo Cardiomyopathy Clinically Improving Recommendations: 1. Cont IV diuresis and supportive care Will be available on a PRN basis for any question or concerns (2) Lactic acidosis ICD Codes: E87.2 - Acidosis Status: Acute (3) Acute renal failure ICD Codes: N17.9 - Acute kidney failure, unspecified Status: Acute (4) Myocardial ischemia ICD Codes: I25.9 - Chronic ischemic heart disease, unspecified Status: Acute (5) Altered mental status ICD Codes: R41.82 - Altered mental status, unspecified Status: Acute (6) Metabolic acidosis ICD Codes: E87.2 - Acidosis Status: Acute (7) Respiratory failure ICD Codes: J96.90 - Respiratory failure, unspecified, unspecified whether with hypoxia or hypercapnia Status: Acute Problem Qualifiers (1) Acute renal failure: Qualified Codes: N17.9 - Acute kidney failure, unspecified (2) Altered mental status: Qualified Codes: R41.0 - Disorientation, unspecified (3) Respiratory failure: Qualified Codes: J96.00 - Acute respiratory failure, unspecified whether with hypoxia or hypercapnia Lalo Waterman MD Jan 23, 2017 15:50
[2017-01-23] MEDS: HEPARIN SODIUM - SQ 10,000 UNITS/ML VIAL SQ SCH (15:54)
[2017-01-23] MEDS ORDERED: BUMETANIDE INJ 1 MG/4 ML VIAL IV PUSH ONE (16:15)
[2017-01-23] MEDS ORDERED: HALOPERIDOL LACTATE 5 MG/ML AMP IV ONE (16:30)
[2017-01-23] MEDS: QUEtiapine FUMARATE 100 MG TAB PO SCH (21:25)
[2017-01-24] VITALS (10 sets, daily range): BP systolic 97–139; BP diastolic 53–80; PULSE 82–109; RESP 16–26; TEMP 97.7–99.4; O2SAT 92–97
[2017-01-24] MEDS: DEXTROSE 50% IN WATER 50 ML VIAL(D50) IV PUSH PRN ×2 (00:22→06:19)
[2017-01-24] MEDS ORDERED: DEXTROSE 50% IN WATER 50 ML SYRINGE ONE ×2 (00:30→06:16)
[2017-01-24] MEDS: DEXMEDETOMIDINE INJ 200 MCG in SODIUM CHLORIDE 0.9% INJ 50 ML IV PRN ×4 (00:37→09:31)
[2017-01-24] MEDS: MILRINONE INJ 20 MG in SODIUM CHLORIDE 0.9% INJ 80 ML IV SCH (00:57)
[2017-01-24] MEDS: PIPERACIL-TAZO 2.25 GM PREMIX 50 ML IV SCH ×3 (02:05→18:00)
[2017-01-24] MEDS: CHLORHEXIDINE GLUCONATE 2 % 1 PACK (2 CLOTHS) TOP SCH (04:00)
[2017-01-24] MEDS: MEDIUM DOSE INSULIN NOVOLOG SUPPLEMENTAL SCALE SQ SCH ×4 (06:00→18:00)
[2017-01-24] MEDS: QUEtiapine FUMARATE 100 MG TAB PO SCH ×3 (06:18→21:03)
[2017-01-24] MEDS: PANTOPRAZOLE SODIUM 40 MG VIAL IV PUSH SCH ×2 (08:35→21:03)
[2017-01-24] MEDS: DOCUSATE SODIUM 50 MG/SENNA 8.6 MG TAB PO SCH ×2 (08:35→20:08)
[2017-01-24] MEDS: SODIUM CHLORIDE 0.9% FLUSH 10 ML FLUSH SCH ×2 (08:36→21:03)
[2017-01-24] MEDS: BENEPROTEIN POWDER 1 PACK G-TUBE SCH ×3 (08:36→18:00)
[2017-01-24] MEDS: HEPARIN SODIUM - SQ 10,000 UNITS/ML VIAL SQ SCH ×4 (08:36→23:30)
[2017-01-24] MEDS: INSULIN DETEMIR 100 UNITS/ML VIAL SQ SCH (08:37)
[2017-01-24] MEDS: POTASSIUM BICARBONATE 25 MEQ EFFERVESCENT TAB PO SCH (08:37)
[2017-01-24] MEDS ORDERED: BUMETANIDE INJ 1 MG/4 ML VIAL IV PUSH ONE (11:45)
--- NOTE | 2017-01-24 11:46 | HHI.CCPN ---
Subjective Remarks/Hospital Course Hospital Course: 61-year-old female was brought in by EMT for altered mental status. She has a history of diabetes hypertension Xanax overdose in the past, she usually goes to [facility]. She had a Cardiac catheterization done there last year and she was told that she is got cardiomyopathy and she needs the bypass surgery however she didn't follow. Today when she was brought she was too lethargic and was intubated by ED attending for an airway protection. On presentation she is in cardiogenic shock, hypotensive on maximum dose of dopamine and Levophed. She is evaluated by plater apprentice Dr. Day was given a taken emergently to cardiac catheterization. She was also discussed by ED attending with Dr. Rousseau, nephrology who is aware of patient's elevated creatinine and emergent hemodialysis shortly after catheterization. 01/18 Additional documentation: Patient taken emergently to slab grinder. I was called to assist and evaluate patient in slab grinder. patient in shock on dopamine and levophed. LHC without evidence of CAD. LVgram suggestive of normal EF. LVEDP severely elevated ~38 mmHg. RHC with evidence of severe pulmonary hypertension, RVSP 77 mmHg. left and right heart cath suggestive of severe CHF exacerbation with preserved EF, and her critical illness may be secondary to cardiogenic shock. Discussed with Dr. Day, plan to place in CVICU with [place] in place and pursue volume removal, inotropic therapy with milrinone and inhaled flolan. Placed swan (see separate procedure note for details). CI 3.6, cvp 15, pcwp 25. svo2 55%. febrile to 101. repeat troponin went from 2 to 40. still very critically ill. in mixed shock. Subjective: 01/19: persists in cardiogenic shock. volume overload. dialyzed yesterday. now making urine, cr downtrending. remains on milrinone, dopamine, levophed. RHC numbers: HR 127. Art 116/61 (74). RAP 18. PAP 44/26 (33). PCWP 23. CO 6.0/ CI 3.1. SVR 696. PVR 1.6. 01/20: Patient remains in profound cardiogenic and septic shock. Currently on milrinone 0.3 g per KG per minute and dopamine 14 g per KG per minute and Levophed 22 mcg/m. MAP >70. SVR in 800s, PCWP 17. I have added stress dose steroids hydrocortisone 100 mg IV every 8 hours, patient is profoundly tachycardic I will add vasopressin and attempt weaning dopamine to DC. Add vancomycin for GPC 05/14. UO >8 L in 24 hours with 4 mg Bumex and 500 mg Diuril. Reviewed echo EF 35-40%, apical hypokinesis on my review. Most likely Takotsubo cardiomyopathy 01/21: Patient still critically ill but shows some signs of improvement. Levophed is now down to 7 mcg/m. Remains on vasopressin 0.04 international units, milrinone at 0.3 g per KG per minute. Urine output more than 5 L, creat remains at 4.PAC numbers. PA mean 23-26. CO 3.7-6.7/CI2-3. SVR 1073. Hemoglobin has dropped to 7.5 platelet count 82. Transfuse 1 unit PRBC followed by 1 mg of Bumex IV. 01/22: Critically ill but with some hemodynamic improvement. Levophed at 2 mcg per min. and vasopressin remains at 0.04 international units, milrinone at 0.3 g per KG per minute. Chest x-ray shows some increase in left more than right pulmonary vascular congestion-1 mg Bumex IV given. Will request hemodialysis with nephrology. Repeat 2D 01/21 Echo EF 40-45%, severe hypokinesis or akinesis of the anteroapical wall. Sfws-sq-okcbwmpz mitral valve regurgitation. TATUM also done 01/21 confirms oumr-sa-mkhlczyx mitral regurgitation, basal wall hyperkinesis and apical hypokinesis. 01/23: off vasopressors this morning. on SBT, but RSBI > 110 and tachypneic. very agitated and on multiple different sedatives. self-extubated later this afternoon, but stable from a respiratory standpoint. very agitated and delirious , RASS +2, despite haldol and precedex. possibility of steroid induced psychosis /delirium, will stop hydrocortisone. 01/24: slightly confused, but much improved from yesterday. passed nursing bedside swallow evaluation. precedex weaned. remains off vasopressors. Objective Vital Signs Date Time Temp Pulse Resp B/P (MAP) Pulse Ox O2 Delivery O2 Flow Rate FiO2 01/24/17 08:36 92 Nasal Cannula 3.00 01/24/17 07:15 83 01/24/17 07:15 98.1 18 124/66 (85) 114/64 (81) 01/23/17 15:07 40 Intake and Output 01/24/17 01/24/17 01/25/17 08:00 16:00 00:00 Intake Total 706 ml Output Total 1540 ml Balance -834 ml Result Diagram: 01/23/17 0440 01/24/17 0350 Objective Remarks GENERAL: awake, alert, CAM+ but calm SKIN: Warm and dry. HEAD: Normocephalic. EYES: No scleral icterus. No injection or drainage. NECK: trachea midline. right SC TLC and left IJ Vascath in place CARDIOVASCULAR:. sinus by tele. Systolic murmur in all areas. RESPIRATORY: Breath sounds equal bilaterally, with few basilar crackles. Clear to auscultation anteriorly GASTROINTESTINAL: Abdomen soft, non-tender, nondistended. MUSCULOSKELETAL: No cyanosis, or edema. NEURO EXAM: RASS 0. CAM +. follows commands. A/P Assessment and Plan Assessment: 61yF with h/o cardiomyopathy, presented with hypoxia, respiratory distress and combination septic and cardiogenic shock. Clinical picture consistent with Takotsubo cardiomyopathy. Requiring inotropes and vasopressors, slowly decreasing requirements of vasopressors. Required emergent hemodialysis. Now extubated, agitation improving slowly. NEURO: Toxic encephalopathy Agitated Delirium - continue precedex, wean for RASS goal 0. - haldol 5mg iv q1h prn - seroquel 100mg po q8h - UDS + for bzd RESP: Acute hypoxic Respiratory failure- resolving. MSSA pneumonia Pulmonary edema - self-extubated 01/23. - bumex 2mg iv x 1 given today - zosyn for coverage. CVS: Takotsubo cardiomyopathy Cardiogenic and septic shock- resolving. Troponin elevation due to Takotsubo cardiomyopathy Pulmonary edema History of hypertrophic cardiomyopathy - Clinical picture, echo and cardiac catheterization findings consistent with Takotsubo cardiomyopathy (EF 35-40% with apical WMA, normal coronaries) - 01/[address] Day, no acute obstruction, no significant CAD - Repeat 2D 01/21 Echo EF 40-45%, severe hypokinesis/akinesis of the anteroapical wall. Syre-ef-ekksoyeh mitral valve regurgitation - TATUM 01/21 confirms prto-th-bctqoitl mitral regurgitation, basal wall hyperkinesis and apical hypokinesis. - d/c milrinone. - DCd PA catheter 01/21. trend cardiac output with FloTrac - Cardiology Dr. Day : Severe metabolic acidosis- resolved - Acute kidney injury from shock. Creatinine remains elevated - Dr. Rousseau. Stat hemodialysis 01/18, currently nonoliguric - bumex 2mg iv - Strict I's and Os - UO 1.5 L in 24 hours - History of metformin GI: Transaminitis - Elevated liver enzymes due to shock - advance to heart healthy diet as tolerated. - IV Protonix 40 mg q12 ID: Septic and cardiogenic shock- resolving. MSSA pneumonia Coag negative staph and blood most likely contamination - On Zosyn, full 7 day course would stop 01/25 - Change Zosyn to Rocephin if repeat sputum culture 01/22 grows MSSA again - Blood culture coag negative staph / bottles, sputum MSSA and urine culture - negative to date - Neg urine for Legionella and pneumococcal antigen HEME: Mild thrombocytopenia Anemia - HIT panel pending, thrombocytopenia could be DIC/sepsis versus drug-induced - Check PT/PTT, fibrinogen - Received 1 unit PRBC on 01/21/17 ENDO: Diabetes mellitus - Hold metformin due to above - Insulin sliding scale, - hypoglycemic overnight. hold levemir. DVT GI prophylaxis - HIT negative. start SQH. - Isacc Gutierrez MD Jan 24, 2017 11:46
[2017-01-24 13:58] LABS: MEAN CELL VOLUME 98.9 FL (80.0-100.0); MEAN CORPUSCULAR HEMOGLOBIN 32.9 PG (27.0-34.0); MEAN CORPUSCULAR HGB CONC 33.3 % (32.0-36.0); PLATELET COUNT 131 TH/MM3 (150-450); RED BLOOD COUNT 3.14 MIL/MM3 (4.00-5.30); RED CELL DISTRIBUTION WIDTH 14.4 % (11.6-17.2); REVIEW FLAG FINAL; WHITE BLOOD COUNT 13.5 TH/MM3 (4.0-11.0)
[2017-01-24 14:24] LABS: BICARBONATE 26.4 MEQ/L (21.0-32.0)
[2017-01-24 14:29] LABS: POTASSIUM 2.6 MEQ/L (3.5-5.1)
[2017-01-24 22:22] LABS: MAGNESIUM 1.4 MG/DL (1.5-2.5)
[2017-01-24 22:39] LABS: POTASSIUM 2.7 MEQ/L (3.5-5.1)
[2017-01-24] MEDS ORDERED: POTASSIUM CHLORIDE 25 MEQ EFFERVESCENT TAB PO ONE (23:00)
[2017-01-24] MEDS: POTASSIUM CHLOR 20 MEQ PREMIX 100 ML IV SCH (23:30)
[2017-01-24] MEDS: MAGNESIUM SULFATE 1 GM PREMIX 100 ML IV SCH (23:30)
[2017-01-25] VITALS (8 sets, daily range): BP systolic 106–156; BP diastolic 70–91; PULSE 98–101; RESP 16–22; TEMP 98.2–98.6; O2SAT 94–97
[2017-01-25] MEDS: MAGNESIUM SULFATE 1 GM PREMIX 100 ML IV SCH (01:19)
[2017-01-25] MEDS: PIPERACIL-TAZO 2.25 GM PREMIX 50 ML IV SCH ×3 (02:00→17:36)
[2017-01-25] MEDS: POTASSIUM CHLOR 20 MEQ PREMIX 100 ML IV SCH (03:42)
[2017-01-25] MEDS: CHLORHEXIDINE GLUCONATE 2 % 1 PACK (2 CLOTHS) TOP SCH (04:00)
[2017-01-25] MEDS: MEDIUM DOSE INSULIN NOVOLOG SUPPLEMENTAL SCALE SQ SCH ×4 (06:00→17:49)
[2017-01-25] MEDS: QUEtiapine FUMARATE 100 MG TAB PO SCH ×3 (06:00→21:12)
[2017-01-25] MEDS: BENEPROTEIN POWDER 1 PACK G-TUBE SCH ×3 (09:00→17:35)
[2017-01-25] MEDS: DOCUSATE SODIUM 50 MG/SENNA 8.6 MG TAB PO SCH ×2 (09:00→20:31)
[2017-01-25] MEDS: HEPARIN SODIUM - SQ 10,000 UNITS/ML VIAL SQ SCH ×3 (09:13→23:10)
[2017-01-25] MEDS: PANTOPRAZOLE SODIUM 40 MG VIAL IV PUSH SCH ×2 (09:14→20:30)
[2017-01-25] MEDS: SODIUM CHLORIDE 0.9% FLUSH 10 ML FLUSH SCH ×2 (09:14→20:30)
[2017-01-25] MEDS: POTASSIUM BICARBONATE 25 MEQ EFFERVESCENT TAB PO SCH (09:14)
[2017-01-25 10:05] LABS: HEMATOCRIT 37.4 % (35.0-46.0); MEAN CELL VOLUME 99.3 FL (80.0-100.0); MEAN CORPUSCULAR HEMOGLOBIN 32.9 PG (27.0-34.0); MEAN CORPUSCULAR HGB CONC 33.2 % (32.0-36.0); PLATELET COUNT 173 TH/MM3 (150-450); RED BLOOD COUNT 3.77 MIL/MM3 (4.00-5.30); RED CELL DISTRIBUTION WIDTH 14.3 % (11.6-17.2); REVIEW FLAG FINAL; WHITE BLOOD COUNT 16.3 TH/MM3 (4.0-11.0)
[2017-01-25 10:42] LABS: ALKALINE PHOSPHATASE 87 U/L (45-117); ALT (GPT) 31 U/L (10-53); ANION GAP 13 MEQ/L (5-15); AST (GOT) 26 U/L (15-37); BICARBONATE 25.3 MEQ/L (21.0-32.0); BLOOD UREA NITROGEN 49 MG/DL (7-18); CHLORIDE 102 MEQ/L (98-107); GLOMERULAR FILTRATION RATE 24 ML/MIN (>89); MAGNESIUM 1.8 MG/DL (1.5-2.5); POTASSIUM 3.4 MEQ/L (3.5-5.1); SODIUM (NA) 140 MEQ/L (136-145); TOTAL BILIRUBIN ADULT 0.7 MG/DL (0.2-1.0)
--- NOTE | 2017-01-25 15:49 | HHI.CCPN ---
Subjective Remarks/Hospital Course Hospital Course: 61-year-old female was brought in by EMT for altered mental status. She has a history of diabetes hypertension Xanax overdose in the past, she usually goes to [facility]. She had a Cardiac catheterization done there last year and she was told that she is got cardiomyopathy and she needs the bypass surgery however she didn't follow. Today when she was brought she was too lethargic and was intubated by ED attending for an airway protection. On presentation she is in cardiogenic shock, hypotensive on maximum dose of dopamine and Levophed. She is evaluated by electronic news gathering camera person Dr. Day was given a taken emergently to cardiac catheterization. She was also discussed by ED attending with Dr. Rousseau, nephrology who is aware of patient's elevated creatinine and emergent hemodialysis shortly after catheterization. 01/18 Additional documentation: Patient taken emergently to flue dust laborer. I was called to assist and evaluate patient in flue dust laborer. patient in shock on dopamine and levophed. LHC without evidence of CAD. LVgram suggestive of normal EF. LVEDP severely elevated ~38 mmHg. RHC with evidence of severe pulmonary hypertension, RVSP 77 mmHg. left and right heart cath suggestive of severe CHF exacerbation with preserved EF, and her critical illness may be secondary to cardiogenic shock. Discussed with Dr. Day, plan to place in CVICU with [place] in place and pursue volume removal, inotropic therapy with milrinone and inhaled flolan. Placed swan (see separate procedure note for details). CI 3.6, cvp 15, pcwp 25. svo2 55%. febrile to 101. repeat troponin went from 2 to 40. still very critically ill. in mixed shock. Subjective: 01/19: persists in cardiogenic shock. volume overload. dialyzed yesterday. now making urine, cr downtrending. remains on milrinone, dopamine, levophed. RHC numbers: HR 127. Art 116/61 (74). RAP 18. PAP 44/26 (33). PCWP 23. CO 6.0/ CI 3.1. SVR 696. PVR 1.6. 01/20: Patient remains in profound cardiogenic and septic shock. Currently on milrinone 0.3 g per KG per minute and dopamine 14 g per KG per minute and Levophed 22 mcg/m. MAP >70. SVR in 800s, PCWP 17. I have added stress dose steroids hydrocortisone 100 mg IV every 8 hours, patient is profoundly tachycardic I will add vasopressin and attempt weaning dopamine to DC. Add vancomycin for GPC 05/14. UO >8 L in 24 hours with 4 mg Bumex and 500 mg Diuril. Reviewed echo EF 35-40%, apical hypokinesis on my review. Most likely Takotsubo cardiomyopathy 01/21: Patient still critically ill but shows some signs of improvement. Levophed is now down to 7 mcg/m. Remains on vasopressin 0.04 international units, milrinone at 0.3 g per KG per minute. Urine output more than 5 L, creat remains at 4.PAC numbers. PA mean 23-26. CO 3.7-6.7/CI2-3. SVR 1073. Hemoglobin has dropped to 7.5 platelet count 82. Transfuse 1 unit PRBC followed by 1 mg of Bumex IV. 01/22: Critically ill but with some hemodynamic improvement. Levophed at 2 mcg per min. and vasopressin remains at 0.04 international units, milrinone at 0.3 g per KG per minute. Chest x-ray shows some increase in left more than right pulmonary vascular congestion-1 mg Bumex IV given. Will request hemodialysis with nephrology. Repeat 2D 01/21 Echo EF 40-45%, severe hypokinesis or akinesis of the anteroapical wall. Koon-om-djvvqqdw mitral valve regurgitation. TATUM also done 01/21 confirms xqrq-zu-hkqrzjkr mitral regurgitation, basal wall hyperkinesis and apical hypokinesis. 01/23: off vasopressors this morning. on SBT, but RSBI > 110 and tachypneic. very agitated and on multiple different sedatives. self-extubated later this afternoon, but stable from a respiratory standpoint. very agitated and delirious , RASS +2, despite haldol and precedex. possibility of steroid induced psychosis /delirium, will stop hydrocortisone. 01/24: slightly confused, but much improved from yesterday. passed nursing bedside swallow evaluation. precedex weaned. remains off vasopressors. 01/25: No acute events overnight. Patient alert and oriented. The patient was out of bed today with physical therapy ambulation around the room. Objective Vital Signs Date Time Temp Pulse Resp B/P (MAP) Pulse Ox O2 Delivery O2 Flow Rate FiO2 01/25/17 11:00 95 Nasal Cannula 3.00 01/25/17 11:00 98.2 99 18 117/74 (88) 01/23/17 15:07 40 Intake and Output 01/25/17 01/25/17 01/26/17 08:00 16:00 00:00 Intake Total 1100 ml Output Total 1475 ml Balance -375 ml Result Diagram: 01/25/1793301/25/17 09 Objective Remarks GENERAL: Obese pleasant female in no acute distress SKIN: Warm and dry. HEAD: Normocephalic. EYES: No scleral icterus. No injection or drainage. NECK: trachea midline. right SC TLC and left IJ Vascath in place CARDIOVASCULAR:. sinus by tele. Systolic murmur in all areas. RESPIRATORY: Breath sounds equal bilaterally. Clear to auscultation. GASTROINTESTINAL: Abdomen soft, non-tender, nondistended. MUSCULOSKELETAL: No cyanosis, or edema. NEURO EXAM: RASS 0. Motor strength 5/5 bilateral upper and lower extremities. Follows commands. A/P Assessment and Plan Assessment: 61yF with h/o cardiomyopathy, presented with hypoxia, respiratory distress and combination septic and cardiogenic shock. Clinical picture consistent with Takotsubo cardiomyopathy. Requiring inotropes and vasopressors, slowly decreasing requirements of vasopressors. Required emergent hemodialysis. Extubation greater than 24 hours, doing well pleasant and conversant following commands NEURO: Toxic encephalopathy Agitated Delirium-resolved - continue precedex, wean for RASS goal 0. - haldol 5mg iv q1h prn - seroquel 100mg po q8h - UDS + for bzd RESP: Acute hypoxic Respiratory failure- resolving. MSSA pneumonia Pulmonary edema - self-extubated 01/23. - bumex 2mg iv x 1 given today - zosyn for coverage. -On nasal cannula 2 L/m CVS: Takotsubo cardiomyopathy Cardiogenic and septic shock- resolving. Troponin elevation due to Takotsubo cardiomyopathy Pulmonary edema History of hypertrophic cardiomyopathy - Clinical picture, echo and cardiac catheterization findings consistent with Takotsubo cardiomyopathy (EF 35-40% with apical WMA, normal coronaries) - 01/[address] Day, no acute obstruction, no significant CAD - Repeat 2D 01/21 Echo EF 40-45%, severe hypokinesis/akinesis of the anteroapical wall. Zhjw-to-wbztavsp mitral valve regurgitation - TTAUM 01/21 confirms cpvz-dm-nsexzjgn mitral regurgitation, basal wall hyperkinesis and apical hypokinesis. - d/c milrinone. - DCd PA catheter 01/21. trend cardiac output with FloTrac -01/25 Discontinue Flowtrac - Cardiology Dr. Day : Severe metabolic acidosis- resolved - Acute kidney injury from shock. Creatinine remains elevated - Dr. Rousseau. Stat hemodialysis 01/18, currently nonoliguric - bumex 2mg iv - Strict I's and Os - UO 1.5 L in 24 hours - History of metformin GI: Transaminitis - Elevated liver enzymes due to shock - advance to heart healthy diet as tolerated. - IV Protonix 40 mg q12 ID: Septic and cardiogenic shock- resolving. MSSA pneumonia Coag negative staph and blood most likely contamination - On Zosyn, full 7 day course would stop 01/25 - Change Zosyn to Rocephin if repeat sputum culture 01/22 grows MSSA again - Blood culture coag negative staph 05/14 bottles, sputum MSSA and urine culture - negative to date - Neg urine for Legionella and pneumococcal antigen HEME: Mild thrombocytopenia Anemia - HIT panel pending, thrombocytopenia could be DIC/sepsis versus drug-induced - Check PT/PTT, fibrinogen - Received 1 unit PRBC on 01/21/17 ENDO: Diabetes mellitus - Hold metformin due to above - Insulin sliding scale, - hypoglycemic overnight. hold levemir. DVT GI prophylaxis - HIT negative. Heparin subcutaneous - SCDs Dispo: Level 2 The patient is progressing well, tolerating diet up out of bed pleasantly conversant. Plan transfer to [facility] in a.. Physician Komal Pelayo MD Jan 25, 2017 15:49
[2017-01-26] VITALS (7 sets, daily range): BP systolic 93–127; BP diastolic 46–72; PULSE 83–101; RESP 18–20; TEMP 98–98.5; O2SAT 92–97
[2017-01-26] MEDS: PIPERACIL-TAZO 2.25 GM PREMIX 50 ML IV SCH ×2 (02:06→10:19)
[2017-01-26] MEDS: ALPRAZolam 0.5 MG TAB PO PRN ×3 (02:45→21:05)
[2017-01-26] MEDS: CHLORHEXIDINE GLUCONATE 2 % 1 PACK (2 CLOTHS) TOP SCH (04:00)
[2017-01-26] MEDS: MEDIUM DOSE INSULIN NOVOLOG SUPPLEMENTAL SCALE SQ SCH ×4 (06:00→18:00)
[2017-01-26 06:05] LABS: MEAN CELL VOLUME 99.4 FL (80.0-100.0); MEAN CORPUSCULAR HEMOGLOBIN 32.1 PG (27.0-34.0); MEAN CORPUSCULAR HGB CONC 32.3 % (32.0-36.0); PLATELET COUNT 213 TH/MM3 (150-450); RED BLOOD COUNT 3.62 MIL/MM3 (4.00-5.30); RED CELL DISTRIBUTION WIDTH 14.4 % (11.6-17.2); REVIEW FLAG FINAL; WHITE BLOOD COUNT 14.3 TH/MM3 (4.0-11.0)
[2017-01-26 06:23] LABS: BICARBONATE 27.1 MEQ/L (21.0-32.0); MAGNESIUM 1.6 MG/DL (1.5-2.5); POTASSIUM 3.1 MEQ/L (3.5-5.1)
[2017-01-26] MEDS: QUEtiapine FUMARATE 100 MG TAB PO SCH ×3 (06:48→22:09)
[2017-01-26] MEDS: POTASSIUM BICARBONATE 25 MEQ EFFERVESCENT TAB PO SCH (08:48)
[2017-01-26] MEDS: PANTOPRAZOLE SODIUM 40 MG VIAL IV PUSH SCH ×2 (08:49→21:05)
[2017-01-26] MEDS: HEPARIN SODIUM - SQ 10,000 UNITS/ML VIAL SQ SCH ×2 (08:49→16:18)
[2017-01-26] MEDS: DOCUSATE SODIUM 50 MG/SENNA 8.6 MG TAB PO SCH ×2 (08:50→21:00)
[2017-01-26] MEDS: SODIUM CHLORIDE 0.9% FLUSH 10 ML FLUSH SCH ×2 (08:52→21:00)
[2017-01-26] MEDS: BENEPROTEIN POWDER 1 PACK G-TUBE SCH ×3 (08:57→17:56)
[2017-01-26] MEDS: POTASSIUM CHLORIDE 10 MEQ CONTROLLED RELEASE TAB PO SCH ×2 (10:20→14:41)
--- NOTE | 2017-01-26 12:33 | HHI.PR ---
Subjective Remarks Patient resting comfortably in bed, awake alert oriented, blood pressure stable , she is on 2 L of oxygen, discussed with the nurse mostly able to be transferred to [facility] floor Objective Vitals Vital Signs Date Time Temp Pulse Resp B/P (MAP) Pulse Ox O2 Delivery O2 Flow Rate FiO2 01/26/17 11:00 93 Nasal Cannula 2.00 01/26/17 11:00 100 01/26/17 11:00 98.5 100 20 109/46 (67) 93 01/26/17 07:32 97 Nasal Cannula 2.00 01/26/17 07:00 94 01/26/17 07:00 98.4 94 20 93/64 (74) 93 01/26/17 07:00 93 Nasal Cannula 2.00 01/26/17 03:00 94 Nasal Cannula 3.00 01/26/17 03:00 98.4 89 20 121/66 (84) 94 01/26/17 03:00 89 01/25/17 23:00 93 Nasal Cannula 3.00 01/25/17 23:00 98.5 99 22 106/72 (83) 95 01/25/17 23:00 100 01/25/17 20:48 95 Nasal Cannula 2.00 01/25/17 19:00 98.6 99 18 107/71 (83) 94 01/25/17 19:00 94 Nasal Cannula 2.00 01/25/17 19:00 99 01/25/17 15:00 98.3 98 20 156/91 (112) 95 01/25/17 15:00 98 01/25/17 15:00 95 Nasal Cannula 3.00 I/O 01/25/17 01/25/17 01/25/17 01/26/17 01/26/17 01/26/17 07:00 15:00 23:00 07:00 15:00 23:00 Intake Total 1200 ml 50 ml 960 ml 770 ml Output Total 1475 ml 1500 ml 1200 ml Balance -275 ml 50 ml -540 ml -430 ml Intake Oral 750 ml 960 ml 720 ml IV Total 450 ml 50 ml 50 ml Output Urine Total 1475 ml 1500 ml 1200 ml # Bowel Movements 1 0 2 Result Diagram: 01/26/1751801/26/17518 Objective Remarks GENERAL: This is a well-nourished, well-developed patient, in no apparent distress. SKIN: No rashes, warm and dry HEAD: Atraumatic. Normocephalic. EYES: Pupils equal round and reactive. Extraocular motions intact. No scleral icterus. ENT: Nose without bleeding, or drainage, Airway patent. NECK: Trachea midline. Supple CARDIOVASCULAR: Regular rate and rhythm 3/6 systolic murmur. RESPIRATORY: Fair air entry bilaterally. No wheezes, rales, or rhonchi. GASTROINTESTINAL: Abdomen soft, non-tender, nondistended. Positive bowel sounds MUSCULOSKELETAL: Extremities without clubbing, cyanosis, or edema. Pedal pulses appreciated NEUROLOGICAL: Awake and alert. Moves all extremity. Normal speech.no focal neurological deficit A/P Assessment and Plan 01/26: Stable hemodynamically, complaint of bloating and excessive gas, will give simethicone, plan to transfer to [facility] floor with telemetry 61yF with h/o cardiomyopathy, presented with hypoxia, respiratory distress and combination septic and cardiogenic shock. Clinical picture consistent with Takotsubo cardiomyopathy. Requiring inotropes and vasopressors, slowly decreasing requirements of vasopressors. Required emergent hemodialysis. Extubation greater than 24 hours, doing well pleasant and conversant following commands Toxic encephalopathy Agitated Delirium-resolved - continue precedex, wean for RASS goal 0. - haldol 5mg iv q1h prn - seroquel 100mg po q8h - UDS + for bzd Acute hypoxic Respiratory failure- resolving. MSSA pneumonia Pulmonary edema - self-extubated 01/23. - bumex 2mg iv x 1 given today - zosyn for coverage. -On nasal cannula 2 L/m Takotsubo cardiomyopathy Cardiogenic and septic shock- resolving. Troponin elevation due to Takotsubo cardiomyopathy Pulmonary edema History of hypertrophic cardiomyopathy - Clinical picture, echo and cardiac catheterization findings consistent with Takotsubo cardiomyopathy (EF 35-40% with apical WMA, normal coronaries) - 01/[address] Day, no acute obstruction, no significant CAD - Repeat 2D 01/21 Echo EF 40-45%, severe hypokinesis/akinesis of the anteroapical wall. Ojih-mr-dgmewcpc mitral valve regurgitation - TATUM 01/21 confirms fzcz-ya-bbwubole mitral regurgitation, basal wall hyperkinesis and apical hypokinesis. - d/c milrinone. - DCd PA catheter 01/21. trend cardiac output with FloTrac -01/25 Discontinue Flowtrac - Cardiology Dr. Day Severe metabolic acidosis- resolved Acute kidney injury from shock. Creatinine remains elevated - Dr. Rousseau. Stat hemodialysis 01/18, currently nonoliguric - bumex 2mg iv - Strict I's and Os - UO 1.5 L in 24 hours - History of metformin Transaminitis - Elevated liver enzymes due to shock - advance to heart healthy diet as tolerated. - IV Protonix 40 mg q12 Septic and cardiogenic shock- resolving. MSSA pneumonia Coag negative staph and blood most likely contamination - On Zosyn, full 7 day course would stop 01/25 - Change Zosyn to Rocephin if repeat sputum culture 01/22 grows MSSA again - Blood culture coag negative staph 05/14 bottles, sputum MSSA and urine culture - negative to date - Neg urine for Legionella and pneumococcal antigen Mild thrombocytopenia Anemia - HIT panel pending, thrombocytopenia could be DIC/sepsis versus drug-induced - Received 1 unit PRBC on 01/21/17 Diabetes mellitus - Hold metformin due to above - Insulin sliding scale, - hypoglycemic overnight. hold levemir. DVT GI prophylaxis - HIT negative. Heparin subcutaneous - SCDs Sheron Brandon MD Jan 26, 2017 12:33
--- NOTE | 2017-01-26 14:15 | HHI.NPPN ---
Subjective History of Present Illness 61 year old female OD on prescription medications, intubated Additional Remarks off the vent doing well Objective Data Data Vital Signs Date Time Temp Pulse Resp B/P (MAP) Pulse Ox O2 Delivery O2 Flow Rate FiO2 01/26/17 11:00 93 Nasal Cannula 2.00 01/26/17 11:00 100 01/26/17 11:00 98.5 100 20 109/46 (67) 93 01/26/17 07:32 97 Nasal Cannula 2.00 01/26/17 07:00 94 01/26/17 07:00 98.4 94 20 93/64 (74) 93 01/26/17 07:00 93 Nasal Cannula 2.00 01/26/17 03:00 94 Nasal Cannula 3.00 01/26/17 03:00 98.4 89 20 121/66 (84) 94 01/26/17 03:00 89 01/25/17 23:00 93 Nasal Cannula 3.00 01/25/17 23:00 98.5 99 22 106/72 (83) 95 01/25/17 23:00 100 01/25/17 20:48 95 Nasal Cannula 2.00 01/25/17 19:00 98.6 99 18 107/71 (83) 94 01/25/17 19:00 94 Nasal Cannula 2.00 01/25/17 19:00 99 01/25/17 15:00 98.3 98 20 156/91 (112) 95 01/25/17 15:00 98 01/25/17 15:00 95 Nasal Cannula 3.00 -: 01/26/17 0519 01/26/17 0519 Physical Exam General Appearance: Well Developed Neck Neck Exam: Neck Supple Pulmonary Resp Exam: Clear Bilaterally, Breath Sounds Equal Cardiology CV Exam: Regular, Normal Sinus Rhythm Gastrointestinal/Abdomen GI Exam: Soft, Non-Tender, Bowel Sounds Present Integumentary Skin Exam: Clear Extremeties Extremities Exam: No Edema Assessment/Plan Problem List: (1) Acute renal failure ICD Codes: N17.9 - Acute kidney failure, unspecified Status: Acute Plan: Patient appears to have overdosed on prescription medications ARF Non oliguric UOP good cr declined K replaced dc vascath I will sign off (2) Cardiogenic shock ICD Codes: R57.0 - Cardiogenic shock Status: Acute Plan: Post heart catheterization which did not showed critical blockage EF 40% Cardiomyopathy Troponin 40 Problem Qualifiers (1) Acute renal failure: Qualified Codes: N17.9 - Acute kidney failure, unspecified Aime Rousseau MD Jan 26, 2017 14:15
[2017-01-26] MEDS: PIPERACIL-TAZO 3.375 GM PREMIX 50 ML IV SCH ×2 (16:18→22:09)
[2017-01-26] MEDS: SIMETHICONE 125 MG CHEWABLE TAB PO SCH (18:34)
[2017-01-26] MEDS ORDERED: DICYCLOMINE HCL 10 MG CAP PO ONE (23:15)
[2017-01-27] MEDS: HEPARIN SODIUM - SQ 10,000 UNITS/ML VIAL SQ SCH ×2 (00:34→08:25)
[2017-01-27] MEDS: SIMETHICONE 125 MG CHEWABLE TAB PO SCH ×2 (00:34→08:23)
[2017-01-27 03:00] VITALS: BP 141/79; PULSE 79; PULSE 80; RESP 18; TEMP 98.4; O2SAT 92
[2017-01-27 03:54] LABS: C. DIFF EPI 027 PRESUMPTIVE NEGATIVE (NEGATIVE)
[2017-01-27] MEDS: CHLORHEXIDINE GLUCONATE 2 % 1 PACK (2 CLOTHS) TOP SCH (04:00)
[2017-01-27] MEDS: PIPERACIL-TAZO 3.375 GM PREMIX 50 ML IV SCH ×2 (04:53→11:28)
[2017-01-27] MEDS: MEDIUM DOSE INSULIN NOVOLOG SUPPLEMENTAL SCALE SQ SCH ×3 (06:00→12:19)
[2017-01-27 06:29] LABS: HEMATOCRIT 34.5 % (35.0-46.0); MEAN CELL VOLUME 101.2 FL (80.0-100.0); MEAN CORPUSCULAR HEMOGLOBIN 33.4 PG (27.0-34.0); PLATELET COUNT 236 TH/MM3 (150-450); RED BLOOD COUNT 3.41 MIL/MM3 (4.00-5.30); RED CELL DISTRIBUTION WIDTH 14.3 % (11.6-17.2); REVIEW FLAG FINAL
[2017-01-27] MEDS: QUEtiapine FUMARATE 100 MG TAB PO SCH ×2 (06:43→12:19)
[2017-01-27 06:46] LABS: BICARBONATE 27.1 MEQ/L (21.0-32.0); MAGNESIUM 1.5 MG/DL (1.5-2.5); POTASSIUM 3.5 MEQ/L (3.5-5.1)
[2017-01-27 07:50] VITALS: O2SAT 93
[2017-01-27 08:00] VITALS: BP 129/75; PULSE 94; RESP 16; TEMP 97.8; O2SAT 95
[2017-01-27] MEDS: PANTOPRAZOLE SODIUM 40 MG VIAL IV PUSH SCH (08:26)
[2017-01-27] MEDS: POTASSIUM BICARBONATE 25 MEQ EFFERVESCENT TAB PO SCH (08:26)
[2017-01-27] MEDS: SODIUM CHLORIDE 0.9% FLUSH 10 ML FLUSH SCH (08:31)
[2017-01-27] MEDS: DOCUSATE SODIUM 50 MG/SENNA 8.6 MG TAB PO SCH (08:39)
[2017-01-27] MEDS: BENEPROTEIN POWDER 1 PACK G-TUBE SCH ×2 (08:39→12:19)
[2017-01-27 11:00] VITALS: BP 146/88; PULSE 85; RESP 16; TEMP 98.7; O2SAT 95
[2017-01-27] MEDS ORDERED: POTASSIUM PHOSPHATE MONOBASIC 500 MG TAB PO SCH (12:00)
[2017-01-27] MEDS ORDERED: WALKER WHEELS/F1 MIS (12:03)
--- NOTE | 2017-01-27 12:07 | HHI.FF ---
Face to Face Verification Diagnosis: (1) Cardiogenic shock (2) Lactic acidosis (3) Acute renal failure (4) Respiratory failure (5) Myocardial ischemia (6) Altered mental status (7) Metabolic acidosis (8) Weakness Physical Therapy Order: Evaluate and Treat Occupational Therapy Order: Evaluate and Treat Home Health Nursing Order: Medical education Diabetic education Nursing assessment with vital signs I have seen patient Leslie Silvestre on 01/27/17. My clinical findings support the need for the requested home health care services because: Patient has SOB Med compliance is questionable I certify that my clinical findings support that this patient is homebound because: Unsteady gait/balance Poor cardiac reserve Sheron Brandon MD Jan 27, 2017 12:07
[2017-01-27] MEDS: MAGNESIUM SULFATE 1 GM PREMIX 100 ML IV SCH ×2 (12:19→13:20)
[2017-01-27] MEDS: ALPRAZolam 0.5 MG TAB PO PRN (14:33)
--- NOTE | 2017-01-27 20:11 | HHI.DS ---
Discharge Summary Admission Date Jan 18, 2017 at 05:37 Discharge Date: Jan 27, 2017 Admitting Diagnosis (1) GRACE (acute kidney injury) ICD Code: N17.9 - Acute kidney failure, unspecified (2) Weakness ICD Code: R53.1 - Weakness (3) Cardiogenic shock ICD Code: R57.0 - Cardiogenic shock (4) Septic shock ICD Code: A41.9 - Sepsis, unspecified organism; R65.21 - Severe sepsis with septic shock (5) Takatsukis syndrome ICD Code: E88.09 - Other disorders of plasma-protein metabolism, not elsewhere classified (6) Toxic encephalopathy ICD Code: G92 - Toxic encephalopathy Procedures See below Brief History - From Admission 61-year-old female was brought in by EMT for altered mental status. She has a history of diabetes hypertension Xanax overdose in the past, she usually goes to [facility]. She had a Cardiac catheterization done there last year and she was told that she is got cardiomyopathy and she needs the bypass surgery however she didn't follow. Today when she was brought she was too lethargic and was intubated by ED attending for an airway protection. On presentation she is in cardiogenic shock, hypotensive on maximum dose of dopamine and Levophed. She is evaluated by pantry chef Dr. Day was given a taken emergently to cardiac catheterization. She was also discussed by ED attending with Dr. Rousseau, nephrology who is aware of patient's elevated creatinine and emergent hemodialysis shortly after catheterization. CBC/BMP: 01/27/17 0603 01/27/17 0603 Significant Findings Laboratory Tests Test 01/24/17 21:48 01/25/17 09:34 01/26/17 05:19 01/27/17 00:15 Potassium Level 2.7 MEQ/L (3.5-5.1) 3.4 MEQ/L (3.5-5.1) 3.1 MEQ/L (3.5-5.1) Magnesium Level 1.4 MG/DL (1.5-2.5) White Blood Count 16.3 TH/MM3 (4.0-11.0) 14.3 TH/MM3 (4.0-11.0) Red Blood Count 3.77 MIL/MM3 (4.00-5.30) 3.62 MIL/MM3 (4.00-5.30) Blood Urea Nitrogen 49 MG/DL (7-18) 37 MG/DL (7-18) Creatinine 2.11 MG/DL (0.50-1.00) 1.52 MG/DL (0.50-1.00) Random Glucose 127 MG/DL (74-106) 138 MG/DL (74-106) Total Protein 6.1 GM/DL (6.4-8.2) Albumin 2.7 GM/DL (3.4-5.0) Estimat Glomerular Filtration Rate 24 ML/MIN (>89) 35 ML/MIN (>89) Calcium Level 8.1 MG/DL (8.5-10.1) Test 01/27/17 06:03 White Blood Count 12.0 TH/MM3 (4.0-11.0) Red Blood Count 3.41 MIL/MM3 (4.00-5.30) Hemoglobin 11.4 GM/DL (11.6-15.3) Hematocrit 34.5 % (35.0-46.0) Mean Corpuscular Volume 101.2 FL (80.0-100.0) Blood Urea Nitrogen 24 MG/DL (7-18) Creatinine 1.36 MG/DL (0.50-1.00) Random Glucose 134 MG/DL (74-106) Calcium Level 8.4 MG/DL (8.5-10.1) Phosphorus Level 1.9 MG/DL (2.5-4.9) Estimat Glomerular Filtration Rate 40 ML/MIN (>89) PE at Discharge GENERAL: This is a well-nourished, well-developed patient, in no apparent distress. SKIN: No rashes, warm and dry HEAD: Atraumatic. Normocephalic. EYES: Pupils equal round and reactive. Extraocular motions intact. No scleral icterus. ENT: Nose without bleeding, or drainage, Airway patent. NECK: Trachea midline. Supple CARDIOVASCULAR: Regular rate and rhythm 3/6 systolic murmur. RESPIRATORY: Fair air entry bilaterally. No wheezes, rales, or rhonchi. GASTROINTESTINAL: Abdomen soft, non-tender, nondistended. Positive bowel sounds MUSCULOSKELETAL: Extremities without clubbing, cyanosis, or edema. Pedal pulses appreciated NEUROLOGICAL: Awake and alert. Moves all extremity. Normal speech.no focal neurological deficit Transfer Summary 61-year-old female was brought in by EMT for altered mental status. She has a history of diabetes hypertension Xanax overdose in the past, she usually goes to [facility]. She had a Cardiac catheterization done there last year and she was told that she is got cardiomyopathy and she needs the bypass surgery however she didn't follow. Today when she was brought she was too lethargic and was intubated by ED attending for an airway protection. On presentation she is in cardiogenic shock, hypotensive on maximum dose of dopamine and Levophed. She is evaluated by pantry chef Dr. Day was given a taken emergently to cardiac catheterization. She was also discussed by ED attending with Dr. Rousseau, nephrology who is aware of patient's elevated creatinine and emergent hemodialysis shortly after catheterization. 01/18 Additional documentation: Patient taken emergently to shop laborer. I was called to assist and evaluate patient in shop laborer. patient in shock on dopamine and levophed. LHC without evidence of CAD. LVgram suggestive of normal EF. LVEDP severely elevated ~38 mmHg. RHC with evidence of severe pulmonary hypertension, RVSP 77 mmHg. left and right heart cath suggestive of severe CHF exacerbation with preserved EF, and her critical illness may be secondary to cardiogenic shock. Discussed with Dr. Day, plan to place in CVICU with Brohard in place and pursue volume removal, inotropic therapy with milrinone and inhaled flolan. Placed swan (see separate procedure note for details). CI 3.6, cvp 15, pcwp 25. svo2 55%. febrile to 101. repeat troponin went from 2 to 40. still very critically ill. in mixed shock. Subjective: 01/19: persists in cardiogenic shock. volume overload. dialyzed yesterday. now making urine, cr downtrending. remains on milrinone, dopamine, levophed. RHC numbers: HR 127. Art 116/61 (74). RAP 18. PAP 44/26 (33). PCWP 23. CO 6.0/ CI 3.1. SVR 696. PVR 1.6. 01/20: Patient remains in profound cardiogenic and septic shock. Currently on milrinone 0.3 g per KG per minute and dopamine 14 g per KG per minute and Levophed 22 mcg/m. MAP >70. SVR in 800s, PCWP 17. I have added stress dose steroids hydrocortisone 100 mg IV every 8 hours, patient is profoundly tachycardic I will add vasopressin and attempt weaning dopamine to DC. Add vancomycin for GPC 05/14. UO >8 L in 24 hours with 4 mg Bumex and 500 mg Diuril. Reviewed echo EF 35-40%, apical hypokinesis on my review. Most likely Takotsubo cardiomyopathy 01/21: Patient still critically ill but shows some signs of improvement. Levophed is now down to 7 mcg/m. Remains on vasopressin 0.04 international units, milrinone at 0.3 g per KG per minute. Urine output more than 5 L, creat remains at 4.PAC numbers. PA mean 23-26. CO 3.7-6.7/CI2-3. SVR 1073. Hemoglobin has dropped to 7.5 platelet count 82. Transfuse 1 unit PRBC followed by 1 mg of Bumex IV. 01/22: Critically ill but with some hemodynamic improvement. Levophed at 2 mcg per min. and vasopressin remains at 0.04 international units, milrinone at 0.3 g per KG per minute. Chest x-ray shows some increase in left more than right pulmonary vascular congestion-1 mg Bumex IV given. Will request hemodialysis with nephrology. Repeat 2D 01/21 Echo EF 40-45%, severe hypokinesis or akinesis of the anteroapical wall. Biwi-rq-ynhqadni mitral valve regurgitation. TATUM also done 01/21 confirms crvh-rg-ifutqyrt mitral regurgitation, basal wall hyperkinesis and apical hypokinesis. 01/23: off vasopressors this morning. on SBT, but RSBI > 110 and tachypneic. very agitated and on multiple different sedatives. self-extubated later this afternoon, but stable from a respiratory standpoint. very agitated and delirious , RASS +2, despite haldol and precedex. possibility of steroid induced psychosis /delirium, will stop hydrocortisone. 01/24: slightly confused, but much improved from yesterday. passed nursing bedside swallow evaluation. precedex weaned. remains off vasopressors. 01/25: No acute events overnight. Patient alert and oriented. The patient was out of bed today with physical therapy ambulation around the room. Objective Assessment: 61yF with h/o cardiomyopathy, presented with hypoxia, respiratory distress and combination septic and cardiogenic shock. Clinical picture consistent with Takotsubo cardiomyopathy. Requiring inotropes and vasopressors, slowly decreasing requirements of vasopressors. Required emergent hemodialysis. Extubation greater than 24 hours, doing well pleasant and conversant following commands NEURO: Toxic encephalopathy Agitated Delirium-resolved - continue precedex, wean for RASS goal 0. - haldol 5mg iv q1h prn - seroquel 100mg po q8h - UDS + for bzd RESP: Acute hypoxic Respiratory failure- resolving. MSSA pneumonia Pulmonary edema - self-extubated 01/23. - bumex 2mg iv x 1 given today - zosyn for coverage. -On nasal cannula 2 L/m CVS: Takotsubo cardiomyopathy Cardiogenic and septic shock- resolving. Troponin elevation due to Takotsubo cardiomyopathy Pulmonary edema History of hypertrophic cardiomyopathy - Clinical picture, echo and cardiac catheterization findings consistent with Takotsubo cardiomyopathy (EF 35-40% with apical WMA, normal coronaries) - 01/[address] Day, no acute obstruction, no significant CAD - Repeat 2D 01/21 Echo EF 40-45%, severe hypokinesis/akinesis of the anteroapical wall. Tbjb-cj-adggjsij mitral valve regurgitation - TATUM 01/21 confirms tuxo-go-ftfzkxtw mitral regurgitation, basal wall hyperkinesis and apical hypokinesis. - d/c milrinone. - DCd PA catheter 01/21. trend cardiac output with FloTrac -01/25 Discontinue Flowtrac - Cardiology Dr. Day : Severe metabolic acidosis- resolved - Acute kidney injury from shock. Creatinine remains elevated - Dr. Rousseau. Stat hemodialysis 01/18, currently nonoliguric - bumex 2mg iv - Strict I's and Os - UO 1.5 L in 24 hours - History of metformin GI: Transaminitis - Elevated liver enzymes due to shock - advance to heart healthy diet as tolerated. - IV Protonix 40 mg q12 ID: Septic and cardiogenic shock- resolving. MSSA pneumonia Coag negative staph and blood most likely contamination - On Zosyn, full 7 day course would stop 01/25 - Change Zosyn to Rocephin if repeat sputum culture 01/22 grows MSSA again - Blood culture coag negative staph 05/14 bottles, sputum MSSA and urine culture - negative to date - Neg urine for Legionella and pneumococcal antigen HEME: Mild thrombocytopenia Anemia - HIT panel pending, thrombocytopenia could be DIC/sepsis versus drug-induced - Check PT/PTT, fibrinogen - Received 1 unit PRBC on 01/21/17 ENDO: Diabetes mellitus - Hold metformin due to above - Insulin sliding scale, - hypoglycemic overnight. hold levemir. DVT GI prophylaxis - HIT negative. Heparin subcutaneous - SCDs Hospital Course *Please refer to transfer note for detailed hospital course through intensive care unit The medical floor Patient continue to be followed by the cafeteria monitor, creatinine continue to trend down, cafeteria monitor decided on removing Vas-Cath and cleared patient for discharge to follow up as an outpatient. Zpcb-za-ynwz encounter performed with the patient on discharge day, as well as physical exam, summary of hospitalization course and postdischarge plan has been D/W the patient. D/W nurse D/W family preservation caseworker. Discharge medications reviewed and printed and signed, post discharge follow up visit with PCP and other specialist as well as Brief hospital course and discharge summary has been placed. Pt Condition on Discharge: Fair Discharge Disposition: Disch w/ Home Health Serv Discharge Time: > 30 minutes Discharge Instructions DIET: Follow Instructions for: Diabetic Diet, Renal Failure Diet Speech Therapy-Diet Recommends: Mechanical Soft Activities you can perform: See Additionl Instruction Other Activity Instructions: per pT with [facility] Follow up Referrals: Appointment for Follow Up Nephrology - 1 Week with Aime Rousseau MD PCP Follow-up New Orders: BASIC METABOLIC PROF - 3-5 Days New Medications: Walker with Front Wheels (Walker with Front Wheels) 1 Mis Mis EA .ROUTE DIRECTED, #1 0 Refills Continued Medications: Alprazolam (Alprazolam) 0.5 Mg Tab 0.5 MG PO Q4H PRN for ANXIETY, TAB 0 Refills Atenolol (Atenolol) 50 Mg Tab 50 MG PO DAILY for Blood Pressure Management, #30 TAB 0 Refills Escitalopram (Escitalopram) 10 Mg Tab 10 MG PO DAILY, #30 TAB 0 Refills Metformin (Metformin) 850 Mg Tab 1000 MG PO DAILY for Blood Sugar Management, TAB 0 Refills With meals Sheron Brandon MD Jan 27, 2017 20:11
== END 2017-01-27 15:30 | disposition home health service (06) | DRG 870 ==
LOC: NEPC 03:39 → NEDA 05:37 → HCVR 08:31
PROVIDERS: ADMIT Hospitalist; ATTEND Hospitalist
PROC: 5A1955Z Respiratory Ventilation, Greater than 96 Consecutive Hours (ICD-10-PCS; principal; 2017-01-18)
PROC: 03HY32Z Insertion of Monitoring Device into Upper Artery, Percutaneous Approach (ICD-10-PCS; 2017-01-18)
PROC: 0BH17EZ Insertion of Endotracheal Airway into Trachea, Via Natural or Artificial Opening (ICD-10-PCS; 2017-01-18)
PROC: 05H533Z Insertion of Infusion Device into Right Subclavian Vein, Percutaneous Approach (ICD-10-PCS; 2017-01-18)
PROC: 05HN33Z Insertion of Infusion Device into Left Internal Jugular Vein, Percutaneous Approach (ICD-10-PCS; 2017-01-18)
PROC: 4A133B1 Monitoring of Arterial Pressure, Peripheral, Percutaneous Approach (ICD-10-PCS; 2017-01-18)
PROC: 4A133J1 Monitoring of Arterial Pulse, Peripheral, Percutaneous Approach (ICD-10-PCS; 2017-01-18)
PROC: 02HV33Z Insertion of Infusion Device into Superior Vena Cava, Percutaneous Approach (ICD-10-PCS; 2017-01-18)
PROC: 4A023N8 Measurement of Cardiac Sampling and Pressure, Bilateral, Percutaneous Approach (ICD-10-PCS; 2017-01-18)
PROC: B2111ZZ Fluoroscopy of Multiple Coronary Arteries using Low Osmolar Contrast (ICD-10-PCS; 2017-01-18)
PROC: B2151ZZ Fluoroscopy of Left Heart using Low Osmolar Contrast (ICD-10-PCS; 2017-01-18)
PROC: B41F1ZZ Fluoroscopy of Right Lower Extremity Arteries using Low Osmolar Contrast (ICD-10-PCS; 2017-01-18)
PROC: 5A1D60Z (ICD-10-PCS; 2017-01-18)
PROC: B246ZZ4 Ultrasonography of Right and Left Heart, Transesophageal (ICD-10-PCS; 2017-01-21)
PROC: 30233N1 Transfusion of Nonautologous Red Blood Cells into Peripheral Vein, Percutaneous Approach (ICD-10-PCS; 2017-01-21)
DX: A41.9 Sepsis, unspecified organism (principal); J96.01 Acute respiratory failure with hypoxia; G92 Toxic encephalopathy; J15.211 Pneumonia due to Methicillin susceptible Staphylococcus aureus; R57.0 Cardiogenic shock; R65.21 Severe sepsis with septic shock; D69.6 Thrombocytopenia, unspecified; N17.9 Acute kidney failure, unspecified; E87.2 Acidosis; I51.81 Takotsubo syndrome; E87.1 Hypo-osmolality and hyponatremia; N13.30 Unspecified hydronephrosis; I42.2 Other hypertrophic cardiomyopathy; E11.649 Type 2 diabetes mellitus with hypoglycemia without coma; F41.9 Anxiety disorder, unspecified; I10 Essential (primary) hypertension; Z79.84 Long term (current) use of oral hypoglycemic drugs; I25.10 Atherosclerotic heart disease of native coronary artery without angina pectoris; F32.9 Major depressive disorder, single episode, unspecified; I27.2 Other secondary pulmonary hypertension; E87.70 Fluid overload, unspecified; T50.901A Poisoning by unspecified drugs, medicaments and biological substances, accidental (unintentional), initial encounter; Y92.009 Unspecified place in unspecified non-institutional (private) residence as the place of occurrence of the external cause; I34.0 Nonrheumatic mitral (valve) insufficiency; D64.9 Anemia, unspecified
CPT/HCPCS: 31500; 36430; 36556; 36600; 51702; 70450; 71010; 76775; 76937; 80048; 80053; 80074; 80202; 80307; 81001; 82140; 82272; 82533; 82550; 82552; 82565; 82570; 82805; 82948; 83605; 83615; 83735; 84100; 84132; 84300; 84443; 84484; 85002; 85007; 85014; 85025; 85027; 85384; 85610; 85730; 86022; 86403; 86850; 86900; 86901; 86920; 87040; 87070; 87077; 87086; 87147; 87186; 87205; 87449; 87493; 87641; 90935; 93005; 93306; 93308; 93312; 93320; 93325; 93461; 94002; 94003; 94150; 94640; 94664; 94667; 94668; 94799; 96365; 96368; 96374; 96375; 99292; C1769; C1893; C9113; J0131; J0330; J1205; J1265; J1325; J1580; J1630; J1644; J1720; J1815; J1956; J2250; J2260; J2405; J2543; J3010; J3370; J3475; J3480; J7030; J7040; J7042; J7050; J7070; P9016; P9047; Q9967